=== PATIENT | female | born 1990 | race Caucasian/White ===

== ENCOUNTER → 2019-06-20 | Outpatient (REF) | payer MEDICAID ==
[2019-06-20 14:29] LABS: HEMATOCRIT 37.6 % (36.0-47.0); HEMOGLOBIN 12.8 g/dl (12.0-15.5); MEAN CORPUSCULAR HEMOGLOBIN 32.2 pg (27.0-33.0); MEAN CORPUSCULAR VOLUME 94.7 fl (80.0-96.0); PLATELET COUNT, AUTOMATED 204 10^3/uL (150-450); RED BLOOD COUNT 3.97 10^6/uL (4.00-5.40); WHITE BLOOD COUNT 6.4 10^3/uL (4.0-10.0)
[2019-06-20 15:57] LABS: HCG, SERUM QUANTITATIVE 89013 MIU/ML
[2019-06-21 11:15] LABS: RUBELLA IgG QUALITATIVE IMMUNE (IMMUNE)
[2019-06-21 11:44] LABS: HIV 1&2 SCREEN CENTAUR NEGATIVE (NEGATIVE)
== END ==
LOC: M LAB REF 13:20
PROVIDERS: ATTEND Nurse Practitioner Women's Health
DX: O36.80X0 Pregnancy with inconclusive fetal viability, not applicable or unspecified (principal); Z32.01 Encounter for pregnancy test, result positive

== ENCOUNTER → 2019-10-11 | Outpatient (CLI) | payer OTHER ==
[2019-10-11 14:55] LABS: FREE T4 0.83 NG/DL (0.76-1.46); THYROID STIMULATING HORMONE 1.07 uIU/ML (0.358-3.740)
== END ==
LOC: M PLALAB 12:11
PROVIDERS: ATTEND Advanced Practice Midwife
DX: R45.86 Emotional lability (principal)

== ENCOUNTER → 2019-10-30 | Outpatient (CLI) | payer OTHER ==
[2019-10-30 17:32] LABS: HEMATOCRIT 30.7 % (36.0-47.0); HEMOGLOBIN 9.9 g/dl (12.0-15.5); MEAN CORPUSCULAR HEMOGLOBIN 32.5 pg (27.0-33.0); MEAN CORPUSCULAR HGB CONC 32.2 g/dl (32.0-36.5); MEAN CORPUSCULAR VOLUME 100.7 fl (80.0-96.0); PLATELET COUNT, AUTOMATED 250 10^3/uL (150-450); RED BLOOD COUNT 3.05 10^6/uL (4.00-5.40)
== END ==
LOC: M PLALAB 12:21
PROVIDERS: ATTEND Obstetrics & Gynecology
DX: Z34.92 Encounter for supervision of normal pregnancy, unspecified, second trimester (principal)

== ENCOUNTER → 2019-10-31 | Outpatient (CLI) | payer OTHER ==
--- NOTE | 2019-11-01 02:31 | REP ---
Clinical: Anatomical evaluation. Comparison: None . Findings: Examination demonstrates a single live intrauterine in breech presentation. motion is identified by technologist. Placenta is noted posterior and grade I without evidence for placenta previa or abruption. Amniotic fluid volume is normal. Cervix measures 3.5 cm in length and appears closed. No evidence for nuchal cord. Gestational age by current measurements 27 weeks 4 days with ERNESTO 01/26/2020 . FHR equals 152 beats per minute. Estimated weight 1126 grams ( 46th percentile). Amniotic fluid index: 15.9 cm (9.4 - 22.7) Anatomical assessment demonstrates normal four-chamber heart/left ventricular outflow tract. Impression: 1. Single live intrauterine in breech presentation demonstrating appropriate interval growth. Amniotic fluid volume is normal. 2. Current examination demonstrates normal four-chamber heart and left ventricular outflow tract.
== END ==
LOC: M WHC 11:07
PROVIDERS: ATTEND Obstetrics & Gynecology
DX: Z34.92 Encounter for supervision of normal pregnancy, unspecified, second trimester (principal); Z3A.27 27 weeks gestation of pregnancy

== ENCOUNTER → 2019-12-26 | Outpatient (REF) | payer OTHER | LOC: M SFHCWAGY 13:01 | PROVIDERS: ATTEND Obstetrics & Gynecology | DX: O99.013 Anemia complicating pregnancy, third trimester (principal) ==

== ENCOUNTER → 2020-01-02 | Outpatient (CLI) | payer OTHER ==
--- NOTE | 2020-01-02 19:53 | REP ---
Clinical: Growth evaluation. Comparison: 10/31/2019 . Findings: Examination demonstrates a single live intrauterine in cephalic presentation. motion is identified by technologist. Placenta is noted posterior and grade I I without evidence for placenta previa or abruption. Amniotic fluid volume is normal. Cervix appears closed. No evidence for nuchal cord. Gestational age by first US 36 weeks 4 days with ERNESTO 01/26/2020 . Gestational age by current measurements 36 weeks for the with ERNESTO 01/26/2020 . FHR equals 146 beats per minute. Amniotic fluid index: 19.6 cm (7.6 - 24.6) Estimated weight 3133 grams (62nd percentile). Impression: Single live advanced gestation in cephalic presentation demonstrating appropriate interval growth. Amniotic fluid volume is normal. No gross abnormalities are identified. Electronically Signed by Britton Mansfield MD 01/02/2020 07:45 P
== END ==
LOC: M WHC 10:07
PROVIDERS: ATTEND Advanced Practice Midwife
DX: O26.843 Uterine size-date discrepancy, third trimester (principal)

== ENCOUNTER → 2020-01-16 | Outpatient (REF) | payer OTHER ==
[2020-01-16 14:51] LABS: HEMATOCRIT 34.6 % (36.0-47.0); HEMOGLOBIN 11.3 g/dl (12.0-15.5); MEAN CORPUSCULAR HEMOGLOBIN 33.3 pg (27.0-33.0); MEAN CORPUSCULAR HGB CONC 32.7 g/dl (32.0-36.5); MEAN CORPUSCULAR VOLUME 102.1 fl (80.0-96.0); PLATELET COUNT, AUTOMATED 224 10^3/uL (150-450); RED BLOOD COUNT 3.39 10^6/uL (4.00-5.40); WHITE BLOOD COUNT 8.4 10^3/uL (4.0-10.0)
[2020-01-16 14:57] LABS: ALT/SGPT 16 U/L (12-78); BILIRUBIN,TOTAL 0.4 MG/DL (0.2-1.0); CREATININE FOR GFR 0.63 MG/DL (0.55-1.30); GLOMERULAR FILTRATION RATE > 60.0 (>60); LDH LACTATE DEHYDROGENASE 179 U/L (84-246); URIC ACID 4.3 MG/DL (2.6-6.0)
[2020-01-16 15:07] LABS: TOTAL PROTEIN,RANDOM URINE 13.7 MG/DL (0.0-12.0)
== END ==
LOC: M PLALAB 09:31
PROVIDERS: ATTEND Advanced Practice Midwife
DX: O16.3 Unspecified maternal hypertension, third trimester (principal); Z3A.00 Weeks of gestation of pregnancy not specified

== ENCOUNTER 2020-01-27 11:16 | Inpatient (IN) | payer OTHER ==
[~2020-01-27] VITALS: Ht 170.2 cm; Wt 105.5 kg
[2020-01-27] VITALS (10 sets, daily range): BP systolic 111–138; BP diastolic 56–89
[2020-01-27] MEDS ORDERED: LACTATED RINGER'S 1000 ML IV STA (11:32)
[2020-01-27] MEDS ORDERED: STOO2CAP (11:40)
[2020-01-27] MEDS ORDERED: SERT50TA29 (11:40)
[2020-01-27] MEDS ORDERED: FERR32TA (11:40)
[2020-01-27] MEDS ORDERED: PRENTAB9 PO (11:40)
[2020-01-27 12:40] LABS: HEMATOCRIT 36.5 % (36.0-47.0); HEMOGLOBIN 12.5 g/dl (12.0-15.5); MEAN CORPUSCULAR HEMOGLOBIN 34.2 pg (27.0-33.0); MEAN CORPUSCULAR HGB CONC 34.2 g/dl (32.0-36.5); MEAN CORPUSCULAR VOLUME 99.7 fl (80.0-96.0); PLATELET COUNT, AUTOMATED 221 10^3/uL (150-450); RED BLOOD COUNT 3.66 10^6/uL (4.00-5.40); WHITE BLOOD COUNT 8.6 10^3/uL (4.0-10.0)
--- NOTE | 2020-01-27 12:45 | HPEPDOC ---
Obstetrical History & Physical General Date of Admission Jan 27, 2020 at 11:16 Primary Care Physician: GEORGES SMALLWOOD CNM History of Present Illness Patient is a 29-year-old female who is a at 40.2 weeks gestation with an ERNESTO of 01/25/20 based off of her first trimester ultrasound. She initiated care with [facility] and transferred care in her second trimester to [facility]. Her has been complicated by depression and anxiety, which she was started on Zoloft for. She is currently taking 50 mg Zoloft. She presents for an elective induction of labor. She denies contractions, leaking of fluid, or vaginal bleeding. She reports active movement. Chief Complaint: Induction of labor Information Provided By: Patient Age: 29 : 1 Term: 0 Pre-term: 0 Abortions: 0 Livin Care Care: Good Care Dating Final EDC: Jan 25, 2020 Final EDC by: 1st trimester (US) EGA at Admission: 40.2 Antepartum Course Height (inches): 67 Pre- weight (lbs.): 184 Admission Weight (lbs.): 234 Change in Weight (lbs.): 50 Past Medical History Past Obstetrical History : Past Obstetrical History: Primgravida APPLICATION SUPPORT History: No pertinent history Past Medical History Medical History Migraine headaches Surgical History: Denies/None Family History Significant Family History: Cancer (lung,cervical and non Hodgkins lymphoma), Other (Mother with SLE and sister with non malignant brain tumor) Social History Marital Status: Family situation: Spouse/partner home Psychosocial History: Anxiety, Depression (taking zoloft which was started at in third trimester of ) * Smoker: non-smoker Alcohol: Denies Drugs: denies Abuse Violence Screening Have you been hit/kicked/slapp: No Have you been sexually assault: No Imunizations Tdap status: current Allergies Coded Allergies: No Known Allergies (Unverified , 01/27/20) Medications Scheduled No.137/Iron/Folic Acd ( Vitamin Tablet) 1 Each Tablet, 1 TAB PO DAILY Miscellaneous Medications Docusate Sodium (Stool Softener) 100 Mg Capsule Ferrous Gluconate (Ferrous Gluconate) 324 Mg Tablet Sertraline HCl (Sertraline HCl) 50 Mg Tablet Physical Examination Physical Examination GENERAL: Alert and oriented times three. BREAST: . ABDOMEN: Gravid and non-tender to touch. FETUS: Is vertex (VTX) by sterile vaginal examination (SVE), fetus is vertex (VTX) by Jeremy. HEART RATE: Regular rate and rhythm. LUNGS: Clear to auscultation (CTA). EXTREMITIES: No edema. No clonus. Deep tendon reflexes (DTRs) + 2. Laboratory Data 24H LABS Laboratory Tests 2 01/27/20 11:30: Serology Scanned Report Hepatitis B Testing 01/27/20 12:20: Nucleated Red Blood Cells % (auto) 0.0 CBC/BMP Laboratory Tests 01/27/20 12:20 Urine Culture: No Growth Pertinent Laboratoy Data Blood Type: O+ RBC Antibody Screen: Negative HIV: Negative Hepatitis B: Negative Hepatitis C: Negative Rapid Plasma Reagin: Nonreactive Rubella: Immune Chlamydia/Gonorrhea: Negative Group B Streptococcus: Negative Glucose Tolerance Test: 106 Vaginal Examination Dilation: Fingertip Effacement: 50% Station: -3 Cervical Consistency: Soft Cervical Position: Posterior Presentation: Cephalic presentation Position: Four quadrants Assessment Heart Rate (FHR): 145 Variability: Moderate Accelerations: Positive Decelerations: None Tocometer Contractions: Yes Frequency: irregular Multi-drug resistant Organism: No history of MDRO Assessment/Plan Assessment IUP at 40.2 weeks gestation GBS negative Category I FHR tracing elective induction of labor Plan Admit to L&D. OOB ad karen. Diet: regular then switch to clears when IV Pitocin is started or patient gets an epidural. Group B Streptococcus (GBS) negative. Labs and intravenous (IV) per unit protocol. Counseled on Cytotec, cedeño bulb, and Pitocin for induction of labor (IOL). Start Cytotec per order. Anesthesia consult per patient's request. Lactated Ringers (LR): Bolus 800 mL prior to epidural, then at 125 mL/hr. Anticipate cervical ripening. C-S as appropriate. GEORGES SMALLWOOD CNM Jan 27, 2020 12:45
[2020-01-27] MEDS: miSOPROStol 50 MCG 1/2 TAB (S0191) PO SCH ×2 (12:56→17:12)
[2020-01-27] MEDS ORDERED: MORPHINE 4 MG/ML 1ML VIAL/SYRINGE (J2270) IV ONE (21:00)
--- NOTE | 2020-01-27 22:11 | IPNPDOC ---
Obstetrical Progress Note Date of Service Jan 27, 2020 Subjective Patient reports feeling cramping. Objective Vital Signs Date Time Temp Pulse Resp B/P (MAP) Pulse Ox O2 Delivery O2 Flow Rate FiO2 01/27/20 21:07 16 01/27/20 20:08 78 127/62 (83) 01/27/20 18:03 97.5 01/27/20 11:58 98 Room Air Assessment Heart Rate (FHR): 130 Variability: Moderate Accelerations: Positive Decelerations: None Heart Rate Tracing: Category I Tocometer Contractions: Yes Frequency: regular, other (1 to 4 minutes) Strength: palpated as mild Sterile Vaginal Examination Dilation: 1cm Effacement (%): other (75%) Station: -2 Cervical Consistency: Soft Cervical Position: Middle Postion/Presentation: Cephalic presentation Assessment and Plan Age: 29 : 1 Term: 0 Pre-term: 0 Abortions: 0 Livin EGA at Admission: 40.2 Status: Reassuring Group B Streptococcus: Negative Anticipate: Vaginal Delivery Additional Comments IV Morphine given to help patient tolerate exam better as she has a hard time with vaginal exams. Roldan bulb placed successfully with 60/40 cc of NS. IV Pitocin to be started per order. GEORGES SMALLWOOD CNM Jan 27, 2020 22:11
[2020-01-27] MEDS ORDERED: OXYTOCIN DRIP 30 UNITS in IV 1 EA IV SCH (22:15)
[2020-01-27] MEDS: LR 1,000 ML IV SCH (22:58)
[2020-01-28] VITALS (101 sets, daily range): BP systolic 86–137; BP diastolic 50–76
[2020-01-28] MEDS ORDERED: BUTORPHANOL 2 MG/ML INJ (J0595) IV ONE
[2020-01-28] MEDS ORDERED: PROMETHAZINE INJ 25 MG/ML VIAL (J2550) IV ONE
--- NOTE | 2020-01-28 04:18 | IPNPDOC ---
Obstetrical Progress Note Date of Service Jan 28, 2020 Subjective Patient reports her contractions are painful. She is considering an epidural for pain management. Objective Vital Signs Date Time Temp Pulse Resp B/P (MAP) Pulse Ox O2 Delivery O2 Flow Rate FiO2 01/28/20 02:58 78 16 121/67 (85) 01/28/20 01:58 98.0 01/27/20 11:58 98 Room Air Assessment Heart Rate (FHR): 125 Variability: Moderate Accelerations: Positive Decelerations: None Heart Rate Tracing: Category I Tocometer Contractions: Yes Frequency: regular Strength: palpated as mild Assessment and Plan Age: 29 : 1 Term: 0 Pre-term: 0 Abortions: 0 Livin EGA at Admission: 40.4 Weeks & Days 40.5 weeks Status: Reassuring Group B Streptococcus: Negative Anticipate: Vaginal Delivery Additional Comments Roldan bulb out. Consider AROM after patient receives her epidural. GEORGES SMALLWOOD CNM Jan 28, 2020 04:17
[2020-01-28] MEDS ORDERED: FENTANYL 2MCG/ML ROPIVACAINE 0.2% IN 0.9% NACL 100ML IVBAG As Ordered ONE ×2 (04:22→13:56)
[2020-01-28] MEDS ORDERED: REFRIGERATOR IV KEYS XX PRN (05:35)
[2020-01-28] MEDS ORDERED: FENTANYL/ROPIVACAINE/NACL BAG 100 ML EPIDURAL SCH (05:35)
[2020-01-28] MEDS ORDERED: NALOXONE INJ 0.4MG/1ML VIAL (J2310 PER 1MG) IV PRN (05:35)
[2020-01-28] MEDS ORDERED: ONDANSETRON 4MG/2ML VIAL IV PRN (05:35)
[2020-01-28] MEDS ORDERED: LACTATED RINGER'S 1000 ML IV PRN (05:35)
[2020-01-28] MEDS ORDERED: EPIDURAL COMMENT XX SCH (05:35)
[2020-01-28] MEDS ORDERED: diphenhydrAMINE 50MG/ML VIAL (J1200) IV PRN (05:35)
[2020-01-28] MEDS ORDERED: EPIDURAL/PCA KEYS XX PRN (05:35)
[2020-01-28] MEDS: ePHEDrine SULFATE 25 MG/5 ML(5MG/ML) SYRINGE IV PRN ×4 (07:31→12:00)
--- NOTE | 2020-01-28 07:48 | IPNPDOC ---
Obstetrical Progress Note Date of Service Jan 28, 2020 Subjective Patient reports she is comfortable with her epidural. Objective Vital Signs Date Time Temp Pulse Resp B/P (MAP) Pulse Ox O2 Delivery O2 Flow Rate FiO2 01/28/20 02:58 78 16 121/67 (85) 01/28/20 01:58 98.0 01/27/20 11:58 98 Room Air Assessment Heart Rate (FHR): 140 Variability: Moderate Accelerations: Positive Decelerations: Late (lates after epidural) Heart Rate Tracing: Category II Tocometer Contractions: Yes Frequency: regular Sterile Vaginal Examination Dilation: 4 cm (4-5 cm) Effacement (%): 80% Station: -2 Cervical Consistency: Soft Cervical Position: Anterior Postion/Presentation: Cephalic presentation Assessment and Plan Status: Reassuring Group B Streptococcus: Negative Anticipate: Vaginal Delivery Additional Comments IV Pitocin is running and at 10 mu/min. She spontaneously ruptured when sitting up to get her epidural. GEORGES SMALLWOOD CNM Jan 28, 2020 07:48
--- NOTE | 2020-01-28 15:40 | IPNPDOC ---
Obstetrical Progress Note Date of Service Jan 28, 2020 Subjective Patient reports she is comfortable with her epidural. Objective Vital Signs Date Time Temp Pulse Resp B/P (MAP) Pulse Ox O2 Delivery O2 Flow Rate FiO2 01/28/20 14:54 82 16 129/71 (90) 01/28/20 14:39 99.1 01/27/20 11:58 98 Room Air Assessment Heart Rate (FHR): 130 Variability: Moderate Accelerations: Positive Decelerations: Early Heart Rate Tracing: Category I Tocometer Contractions: Yes Frequency: regular Sterile Vaginal Examination Dilation: 4 cm (4-5 cm) Effacement (%): 100% Station: -2 Postion/Presentation: Cephalic presentation Assessment and Plan Age: 29 : 1 Term: 0 Pre-term: 0 Abortions: 0 Livin Weeks & Days 40.2 Status: Reassuring Group B Streptococcus: Positive Additional Comments IV Pitocin is at 20 mu/min. Reviewed minimal change in 9 hours. Will reassess in 3-4 hours. GEORGES SMALLWOOD CNM Jan 28, 2020 15:40
[2020-01-28] MEDS: LR 1,000 ML IV SCH (17:05)
--- NOTE | 2020-01-28 19:49 | IPNPDOC ---
Obstetrical Progress Note Date of Service Jan 28, 2020 Subjective Patient reports she is comfortable with her epidural. She did receive a bolus from anesthesia. Objective Vital Signs Date Time Temp Pulse Resp B/P (MAP) Pulse Ox O2 Delivery O2 Flow Rate FiO2 01/28/20 18:54 98.9 80 16 107/51 (69) 98 Room Air Assessment Heart Rate (FHR): 135 Variability: Moderate Accelerations: Positive Decelerations: None Heart Rate Tracing: Category I Tocometer Contractions: Yes Frequency: regular Sterile Vaginal Examination Dilation: 6 cm Effacement (%): 100% Station: -1 Postion/Presentation: Cephalic presentation Assessment and Plan Age: 29 : 1 Term: 0 Pre-term: 0 Abortions: 0 Livin EGA at Admission: 40.1 Weeks & Days 40.2 Status: Reassuring Group B Streptococcus: Positive Anticipate: Vaginal Delivery Additional Comments IV Pitocin is at 20 mu/min. GEORGES SMALLWOOD CNM Jan 28, 2020 19:49
[2020-01-28] MEDS ORDERED: SERTRALINE HCL 50 MG TAB PO SCH (21:00)
[2020-01-29] VITALS (24 sets, daily range): BP systolic 106–162; BP diastolic 56–83
[2020-01-29] MEDS ORDERED: fentaNYL 100 MCG/2 ML INJECTION (J3010) As Ordered ONE ×2 (00:56→07:11)
[2020-01-29] MEDS ORDERED: fentaNYL 100 MCG/2 ML INJECTION (J3010) EPIDURAL ONE (01:00)
--- NOTE | 2020-01-29 03:56 | IPNPDOC ---
Text Note Date of Service The patient was seen on 01/29/20. NOTE Progress Has been pushing for almost 2 hours. Has had maximum epidural bolus available. FH 150, moderate variability UC 2-4 minutes SVE FD, + 2. Poor maternal pushing efforts. Pt is demonstrating inability to cope further, crying, weeping, unable to focus Dr Oshea notified, presence requested. VS,Fishbone, I+O VS, Fishbone, I+O Vital Signs Date Time Temp Pulse Resp B/P (MAP) Pulse Ox O2 Delivery O2 Flow Rate FiO2 01/28/20 18:54 98.9 80 16 107/51 (69) 98 Room Air I&O- Last 24 Hours up to 6 AM 01/29/20 06:00 Intake Total 3680 ml Output Total 1250 ml Balance 2430 ml Naima Melissa CNM Jan 29, 2020 03:56
[2020-01-29] MEDS ORDERED: LACTATED RINGER'S 1000 ML IV STA (04:53)
[2020-01-29] MEDS ORDERED: ceFAZolin 2 GM/D5W 50 ML IV BAG (J0690 PER 500MG) As Ordered ONE (04:57)
[2020-01-29] MEDS ORDERED: BICITRA 30ML SOLN UDC As Ordered ONE (04:57)
[2020-01-29] MEDS ORDERED: BICITRA 30ML SOLN UDC PO ONE (05:00)
[2020-01-29] MEDS ORDERED: ceFAZolin SOD 2 GM in IV 1 EA IV ONE (05:00)
[2020-01-29] MEDS ORDERED: OXYC1TAB23 PO (05:23)
[2020-01-29] MEDS ORDERED: diphenhydrAMINE 50MG/ML VIAL (J1200) IV PRN (05:30)
[2020-01-29] MEDS ORDERED: ONDANSETRON 4MG/2ML VIAL IV PRN ×3 (05:30→06:30)
[2020-01-29] MEDS ORDERED: METOCLOPRAMIDE INJ 10MG/2ML VIAL (J2765 PER 1) IV PRN (05:30)
[2020-01-29] MEDS ORDERED: NALOXONE INJ 0.4MG/1ML VIAL (J2310 PER 1MG) IV PRN ×2 (05:30)
[2020-01-29] MEDS ORDERED: NALBUPHINE HCL 10 MG/ML AMP (J2300) IV PRN (05:30)
[2020-01-29] MEDS ORDERED: dexameTHASONE 4 MG/ML 1ML VIAL (J1100 PER 1MG) As Ordered ONE (05:48)
[2020-01-29] MEDS ORDERED: ONDANSETRON 4MG/2ML VIAL As Ordered ONE (05:48)
[2020-01-29] MEDS ORDERED: MORPHINE PRES-FREE INJ 10 MG/10 ML VIAL (J2274) As Ordered ONE (05:48)
[2020-01-29] MEDS ORDERED: MIDAZOLAM INJ 2MG/2ML VIAL (J2250 PER 1MG) As Ordered ONE (05:48)
[2020-01-29] MEDS ORDERED: LIDOCAINE 2% W/EPIN INJ 20ML **PRES FREE As Ordered ONE (05:48)
[2020-01-29] MEDS ORDERED: OXYTOCIN INJ 10 UNITS/ML VIAL (J2590) As Ordered ONE (05:48)
[2020-01-29] MEDS ORDERED: miSOPROStol 200 MCG TAB (S0191) As Ordered ONE (06:19)
[2020-01-29] MEDS ORDERED: KETOROLAC 60 MG/2 ML VIAL As Ordered ONE (06:19)
[2020-01-29] MEDS ORDERED: OXYTOCIN DRIP 30 UNITS in IV 1 EA IV SCH (06:26)
[2020-01-29] MEDS: LR 1,000 ML IV SCH ×3 (06:26→19:09)
[2020-01-29] MEDS ORDERED: oxyCODONE 5MG TAB PO PRN (06:30)
[2020-01-29] MEDS ORDERED: fentaNYL 100 MCG/2 ML INJECTION (J3010) IV PRN (06:30)
[2020-01-29] MEDS ORDERED: PERCOCET 5MG/325MG TAB PO PRN (06:30)
[2020-01-29] MEDS ORDERED: MEASLES,MUMPS,RUBELLA VACCINE INJ (MMR-II) (90707) SC SCH (06:30)
[2020-01-29] MEDS ORDERED: DOCUSATE SODIUM 100 MG CAP PO PRN (06:30)
[2020-01-29] MEDS ORDERED: miSOPROStol 200 MCG TAB (S0191) PR ONE (06:30)
[2020-01-29] MEDS ORDERED: KETOROLAC 30 MG/ML 1ML VIAL IV PRN (06:30)
[2020-01-29] MEDS ORDERED: RHOGAM 300 MCG (1500 IU) INJ (J2790) IM SCH (06:30)
[2020-01-29] MEDS ORDERED: OXYTOCIN 30 UNITS IN 0.9% NaCl 500ML IV BAG (J2590) As Ordered ONE (06:42)
--- NOTE | 2020-01-29 06:50 | RO ---
DATE OF PROCEDURE: 01/29/2020 PREPROCEDURE DIAGNOSIS: Term , arrest of descent. POSTPROCEDURE DIAGNOSIS: Term , arrest of descent. PROCEDURE: Primary low transverse section. SURGEON: Dr. Zaid Oshea TOP FRAME FITTER: ANESTHESIA:Spinal ESTIMATED BLOOD LOSS: 1000 mL. URINE OUTPUT: 100 mL. FINDINGS: 7 pound 5 ounce male , 3310 grams, Apgars 2, 5 and 7. DESCRIPTION OF PROCEDURE: The patient was taken to the operating room where spinal anesthesia was induced. The Roldan catheter was already in place. She was prepped and draped in sterile fashion in the supine position. A Pfannenstiel skin incision was made with the scalpel and carried through to the fascia. The fascia was nicked and extended and the fascia was dissected off the rectus muscles. The peritoneal cavity was entered. A Mobius retractor was placed. A bladder flap was created. A curvilinear incision was made in the lower uterine segment until meconium stained fluid was noted. This was extended manually. The infant was delivered from the vertex position. The cord was doubly clamped and cut. The infant was handed off to the awaiting nurses. The placenta was expressed. The uterus was closed with #0 Vicryl in a running locked fashion. A second imbricating layer of #0 Vicryl was placed. The peritoneum was closed with #2-0 Vicryl in a running fashion. The fascia was closed with #0 Vicryl in a running fashion. The deep layer was irrigated and closed with #2-0 chromic. The skin was closed with #4-0 Monocryl subcuticular sutures. Sponge, instrument and needle counts were correct. At the end of the procedure, the uterus was expressed vaginally and a moderate amount of blood resulted. The patient was diagnosed with some uterine atony. She received 800 mcg of Cytotec per rectum at that point. The patient went to the recovery room in stable condition. [facility]ENTER[facility]iana
[2020-01-29] MEDS ORDERED: oxyCODONE 5MG TAB As Ordered ONE (07:37)
[2020-01-29] MEDS: PRENATAL VITAMINS CHEWABLE TABLET PO SCH (09:00)
[2020-01-29] MEDS: KETOROLAC 30 MG/ML 1ML VIAL IV SCH ×2 (12:56→18:36)
[2020-01-29] MEDS: SERTRALINE HCL 50 MG TAB PO SCH (13:05)
[2020-01-30] MEDS: KETOROLAC 30 MG/ML 1ML VIAL IV SCH (01:16)
[2020-01-30 02:00] VITALS: BP 113/56
[2020-01-30] MEDS: PERCOCET 5MG/325MG TAB PO PRN ×3 (05:05→21:17)
[2020-01-30 06:00] VITALS: BP 107/58
[2020-01-30 07:09] LABS: HEMATOCRIT 25.9 % (36.0-47.0); HEMOGLOBIN 8.6 g/dl (12.0-15.5); MEAN CORPUSCULAR HEMOGLOBIN 34.3 pg (27.0-33.0); MEAN CORPUSCULAR HGB CONC 33.2 g/dl (32.0-36.5); MEAN CORPUSCULAR VOLUME 103.2 fl (80.0-96.0); PLATELET COUNT, AUTOMATED 159 10^3/uL (150-450); RED BLOOD COUNT 2.51 10^6/uL (4.00-5.40); WHITE BLOOD COUNT 13.2 10^3/uL (4.0-10.0)
[2020-01-30] MEDS: IBUPROFEN 800 MG TAB PO SCH ×2 (09:31→17:01)
[2020-01-30] MEDS: PRENATAL VITAMINS CHEWABLE TABLET PO SCH (09:32)
[2020-01-30] MEDS: SERTRALINE HCL 50 MG TAB PO SCH (09:32)
[2020-01-30 10:00] VITALS: BP 102/51
[2020-01-30 14:00] VITALS: BP 114/53
[2020-01-30 18:00] VITALS: BP 110/55
[2020-01-30 22:31] VITALS: BP 126/69
[2020-01-31] MEDS: IBUPROFEN 800 MG TAB PO SCH ×2 (00:25→08:10)
[2020-01-31] MEDS: PERCOCET 5MG/325MG TAB PO PRN ×2 (02:37→09:55)
[2020-01-31 06:00] VITALS: BP 119/61
[2020-01-31] MEDS ORDERED: IBUP80TA PO (07:42)
[2020-01-31] MEDS: PRENATAL VITAMINS CHEWABLE TABLET PO SCH (08:10)
[2020-01-31] MEDS: SERTRALINE HCL 50 MG TAB PO SCH (09:55)
--- NOTE | 2020-01-31 10:10 | DSES ---
DATE OF ADMISSION: 01/27/2020 DATE OF DISCHARGE: 01/31/2020 29-year-old, G1, P0 at 40 and 2/7 weeks gestation, presents for elective induction of labor. is complicated by depression and anxiety. HOSPITAL COURSE: The patient was admitted on 01/27/2020. She had induction of labor initiated with misoprostol. She had slow but adequate progress in labor. Following progression to the second stage, she pushed for greater than 2 hours and was diagnosed with arrest of decent. The decision was made to proceed with operative delivery. On 01/29/2020, the patient underwent primary low transverse section for a 7 pound 5 ounce male infant. The procedure was uncomplicated. Postoperative course was unremarkable. She had adequate return of bladder and bowel function. Her postoperative hemoglobin was 8.6 g/dL. She was deemed stable for discharge on postoperative day #2. ADMISSION DIAGNOSES: 1. . 2. Term. 3. Induction. DISCHARGE DIAGNOSIS: Delivered. PROCEDURE: section. DISPOSITION: The patient will followup with Dr. Oshea in 2 weeks. Instructions reviewed. edited: 02/03/2020 0727 tkf MTDD
== END 2020-01-31 14:30 | disposition home or self-care (01) | DRG 540 ==
LOC: M LDI 11:16 → M OBS 01-29 08:39
PROVIDERS: ADMIT Advanced Practice Midwife; ATTEND Advanced Practice Midwife
PROC: 3E033VJ Introduction of Other Hormone into Peripheral Vein, Percutaneous Approach (ICD-10-PCS; 2020-01-27)
PROC: 10D00Z1 Extraction of Products of Conception, Low, Open Approach (ICD-10-PCS; principal; 2020-01-29 05:47)
DX: O48.0 Post-term pregnancy (principal); F32.9 Major depressive disorder, single episode, unspecified; Z37.0 Single live birth; Z3A.40 40 weeks gestation of pregnancy; F41.9 Anxiety disorder, unspecified; O99.344 Other mental disorders complicating childbirth; O32.4XX0 Maternal care for high head at term, not applicable or unspecified

== ENCOUNTER → 2020-05-27 | Outpatient (REF) | payer OTHER ==
[~2020-05-27] MED LIST: FERR32TA; IBUP80TA PO; OXYC1TAB23 PO; PRENTAB9 PO; SERT50TA29; STOO2CAP
== END ==
LOC: M SFHCWAGY 13:34
PROVIDERS: ATTEND Advanced Practice Midwife
DX: Z34.00 Encounter for supervision of normal first pregnancy, unspecified trimester (principal); Z36.89 Encounter for other specified antenatal screening

== ENCOUNTER → 2020-05-29 | Outpatient (REF) | payer OTHER | LOC: M SFHCWAGY 10:41 | PROVIDERS: ATTEND Advanced Practice Midwife | DX: Z34.00 Encounter for supervision of normal first pregnancy, unspecified trimester (principal) ==

== ENCOUNTER → 2020-06-03 | Outpatient (REF) | payer OTHER | LOC: M PLALAB 15:03 | PROVIDERS: ATTEND Advanced Practice Midwife | DX: O02.1 Missed abortion (principal) ==

== ENCOUNTER → 2020-06-10 | Outpatient (CLI) | payer OTHER ==
--- NOTE | 2020-06-17 12:13 | REP ---
FIRST TRIMESTER OBSTETRICAL ULTRASOUND CLINICAL: Missed . TECHNIQUE: Transabdominal and transvaginal first trimester obstetrical ultrasound with color Doppler evaluation. FINDINGS: Heterogeneous anteverted uterus noted. Cervix measured 3.9 cm in length. The endometrial complex measures 15 mm in thickness and a cystic structure suggesting empty gestational sac is noted measuring 11 mm mean sac diameter. No pole or yolk sac appreciated. Bilateral maternal ovaries are normal in appearance and vascularity without torsion. IMPRESSION: Presumed empty gestational sac measuring at 5 weeks 6 days gestational age. No pole or yolk sac identified. Differential diagnosis includes spontaneous /blighted ovum, as well as early and less likely, ectopic cannot be excluded. Correlation with serial hCG level is recommended. MTDD
== END ==
LOC: M WHC 09:08
PROVIDERS: ATTEND Advanced Practice Midwife
DX: O02.1 Missed abortion (principal)

== ENCOUNTER → 2020-07-01 | Outpatient (CLI) | payer OTHER | LOC: M PLALAB 12:38 | PROVIDERS: ATTEND Advanced Practice Midwife | DX: O02.1 Missed abortion (principal) ==

== ENCOUNTER → 2020-07-17 | Outpatient (CLI) | payer OTHER | LOC: M PLALAB 08:11 | PROVIDERS: ATTEND Advanced Practice Midwife | DX: O02.1 Missed abortion (principal) ==

== ENCOUNTER → 2020-11-04 | Outpatient (CLI) | payer OTHER | LOC: M LAB 18:22 | PROVIDERS: ATTEND Advanced Practice Midwife | DX: Z34.90 Encounter for supervision of normal pregnancy, unspecified, unspecified trimester (principal) ==

== ENCOUNTER → 2020-11-07 | Outpatient (CLI) | payer OTHER | LOC: M LAB 08:27 | PROVIDERS: ATTEND Advanced Practice Midwife | DX: Z34.90 Encounter for supervision of normal pregnancy, unspecified, unspecified trimester (principal) ==

== ENCOUNTER → 2020-11-11 | Outpatient (REF) | payer OTHER | LOC: M PLALAB 11:13 | PROVIDERS: ATTEND Advanced Practice Midwife | DX: O02.1 Missed abortion (principal) ==

== ENCOUNTER → 2020-11-19 | Outpatient (REF) | payer OTHER | LOC: M PLALAB 09:38 | PROVIDERS: ATTEND Advanced Practice Midwife | DX: O02.1 Missed abortion (principal) ==

== ENCOUNTER → 2020-11-27 | Outpatient (REF) | payer OTHER | LOC: M PLALAB 09:43 | PROVIDERS: ATTEND Advanced Practice Midwife | DX: O02.1 Missed abortion (principal) ==

== ENCOUNTER → 2020-12-06 | Day surgery (SDC) | payer OTHER ==
[~2020-12-06] VITALS: Ht 170.2 cm; Wt 85.4 kg
[~2020-12-06] MED LIST changes: +ACETAMINOPHEN 1000MG 100ML IV BTL (OFIRMEV) (J0131 PER 10MG) As Ordered ONE; +ACETAMINOPHEN 500 MG TAB PO ONE; +BUPR150T4 PO; +DOXYCYCLINE HYCLATE 100MG TABLET PO ONE; +KETOROLAC 30 MG/ML 1ML VIAL IV PRN; +KETOROLAC 60MG 2ML VIAL As Ordered ONE; +LIDOCAINE 2% 100MG/5ML SDV (FOR ANES.) As Ordered ONE; +LR 1,000 ML IV SCH; +METOCLOPRAMIDE INJ 10MG/2ML VIAL (J2765 PER 1) As Ordered ONE; +MIDAZOLAM INJ 2MG/2ML VIAL (J2250 PER 1MG) As Ordered ONE; +MORPHINE 4 MG/ML 1ML VIAL/SYRINGE (J2270) IV ONE; +NS 1,000 ML IV ONE; +ONDANSETRON 4MG/2ML VIAL As Ordered ONE; +ONDANSETRON 4MG/2ML VIAL IV PRN; +dexameTHASONE 4 MG/ML 1ML VIAL (J1100 PER 1MG) As Ordered ONE; +fentaNYL 100 MCG/2 ML INJECTION (J3010) As Ordered ONE; +fentaNYL 100 MCG/2 ML INJECTION (J3010) IV PRN; +oxyCODONE 5MG TAB PO PRN; +propofoL 200 MG/20 ML VIAL As Ordered ONE
--- OUTSIDE RECORDS SUMMARY | 2020-12-06 16:43 | CCD ---
Author Author [facility] Organization [facility] Address Unknown Phone Unavailable Care Team Providers Care Sizing End Bander Name Role Phone Leigh Worley Unavailable PROBLEMS Type Condition ICD9-CM Code [id number] Code Onset Dates Condition S tatus W/U Status Risk SNOMED Code Notes Problem Migraine without aura and without status migrain osus, not intractable G43.009 Active confirmed 256627760 Problem Supervision of other normal Z34.80 Ac tive confirm 037339821 Problem Major depressive disorder, single episode, unspecified F32.9 Active confirmed 73316436 Problem Anemia affecting in third trimester O99. 013 Active confirmed 01405578 Problem Unspecified maternal hypertension, third trimester O16.3 Active confirmed 226715345 Problem Moderate episode of recurrent major depressive disorder F33.1 Active confirmed [id number] ALLERGIES No Known Allergies ENCOUNTERS from 1991 to 2020-11-21 Encounter Location Date Provider Diagnosis [facility] [address] [place] [id number] 04 Nov, 2020 Leigh Worley IMMUNIZATIONS Vaccine Route Administration Date Status TDAP 0.5mL (Boostrix) IM Intramuscular Nov 28, 2019 Administe red SOCIAL HISTORY Tobacco Use: Social History Observation Description Date Details (start date - stop date) Never Smoker Sex Assigned At : Social History Observation Description Sex Assigned At Female Sexual Hx: Question Answer Notes Had sex in the last 12 months (vaginal, oral, or anal)? Yes Have you ever had an STD? No Prevention Strategies discussed: Other with Men only Use protection? No Alcohol Screening: Question Answer Notes Did you have a drink containing alcohol in the past year? No Points 0 Interpretation Negative Tobacco Use: Question Answer Notes Are you a: never smoker REASON FOR REFERRAL No Information VITAL SIGNS No information MEDICATIONS Medication SIG (Take, Route, Frequency, Duration) Notes Start Da te End Date Status Esgic 50-325-40 MG 1 capsule as needed Orally every 4 hrs Not-Taking Effexor XR 37.5 MG 1 capsule with food Orally Once a day for 30 day(s) Mar, Not-Taking Ferrous Gluconate 324 (38 Fe) MG 1 tablet with water o r juice between meals Orally three times per day Oct, Not-T aking Topamax 25 MG 1 tablet Orally daily at [facility] for 7 days then increase dose to 1 tab by mouth twice per day for 1 week for 14 days Mar, Not-Taking Stool Softener 100 MG 1 tablet as needed for constipation Orally BID Oct, Not-Taking Diflucan 150 MG 1 tablet Orally one time Nov, Not-Taking Zoloft 50 MG 1 tablet Orally Once a day for 30 day(s) 29 A pr2019 Not-Taking Zoloft 50 MG 1 tablet Orally Once a day for 30 day(s) Not-Taking Vitamin 27-0.8 MG 1 tablet Orally Once a day Active Topamax 25 MG 1 tablet in the morning and 2 tablets in the evening Orally for 1 week then increase to 2 tabs by mouth twice per day Apr, Not-Taking Metronidazole 500 MG 1 tablet Orally Twice a day for 7 days Nov, Not-Taking Wellbutrin SR 150 MG 1 tablet in the morning Orally Once a day Active Venlafaxine HCl ER 37.5 MG 1 capsule with food Orally Once a day for 30 day(s) February, Not-Taking Zoloft 25 MG 1 tablet Orally Once a day for 30 day(s) 30 J an2019 Not-Taking PROCEDURES No Information RESULTS No Results REASON FOR VISIT hcg MEDICAL (GENERAL) HISTORY Type Description Date Medical History migraine headaches Surgical History lasik Surgical History 01/29/2020 Hospitalization History Childbirth Goals Section No Information Health Concerns No Information MEDICAL EQUIPMENT No Information MENTAL STATUS No Information FUNCTIONAL STATUS No Information ASSESSMENTS No Information PLAN OF TREATMENT Next Appt Details Provider Name:Leigh Worley, 2020-11-27 08:40:00 AM, [address] [place], [id number], Insurance Providers Payer Name Payer Address Payer Phone Insured Name Patient Relati onship to Insured Coverage Start Date Coverage End Date FORMERLY [facility] CORPORATE CLAIMS DEPT [address] [facility] [phone] NO RUIZ
--- OUTSIDE RECORDS SUMMARY | 2020-12-06 16:43 | CCD ---
Author Author [facility] Organization [facility] Address Unknown Phone Unavailable Care Team Providers Care Passenger Screener Name Role Phone LiJessicao PA Unavailable Unavailable Li, Zhenbo PA Unavailable Unavailable Li, Zhenbo PA Unavailable Unavailable Li, Zhenbo PA Unavailable Unavailable Li, Zhenbo PA Unavailable Unavailable Li, Zhenbo PA Unavailable Unavailable Li, Zhenbo PA Unavailable Unavailable Li, Zhenbo PA Unavailable Unavailable Re-disclosure Warning The records that you are about to access may contain information from federally-assisted alcohol or drug abuse programs. If such information is present, then the following federally mandated warning applies: This information has been disclosed to you from records protected by federal confidentiality rules (42 CFR part 2). The federal rules prohibit you from making any further disclosure of this information unless further disclosure is expressly permitted by the written consent of the person to whom it pertains or as otherwise permitted by 42 CFR part 2. A general authorization for the release of medical or other information is NOT sufficient for this purpose. The Federal rules restrict any use of the information to criminally investigate or prosecute any alcohol or drug abuse patient.The records that you are about to access may contain highly sensitive health information, the redisclosure of which is protected by Article 27-F of the [facility] Public Health law. If you continue you may have access to information: Regarding HIV / AIDS; Provided by facilities licensed or operated by the [facility] Office of Mental Health; or Provided by the [facility] Office for People With Developmental Disabilities. If such information is present, then the following [facility] mandated warning applies: This information has been disclosed to you from confidential records which are protected by state law. State law prohibits you from making any further disclosure of this information without the specific written consent of the person to whom it pertains, or as otherwise permitted by law. Any unauthorized further disclosure in violation of state law may result in a fine or mcfp sentence or both. A general authorization for the release of medical or other information is NOT sufficient authorization for further disc losure. Family History Family Member Name Family Member Gender Family Member Status Date o f Status Description Data Source(s) Unknown Female Problem MEDENT ([facility], [facility]) Encounters Encounter Providers Location Date Indications Data Source(s ) Outpatient [address] [facility] [address] 11/19/2020 12:00:00 AM EST eCW1 (formerly [facility]) Unknown [address] [facility] [place] [address] 11/19/2020 12:00:00 AM EST eCW1 (formerly [facility]) Unknown [address] [facility] [place] [address] 11/12/2020 12:00:00 AM EST eCW1 (formerly [facility]) Unknown [address] [facility] [place] [address] 11/09/2020 12:00:00 AM EST eCW1 (formerly [facility]) ([facility]) [facility] [address] [place] [address] 11/04/2020 12:00:00 AM EST eCW1 ([facility]) Unknown [address] [facility] [address] 08/31/2020 12:00:00 AM EST [facility] [address] [facility] [address] 08/24/2020 12:00:00 AM EST [facility]1 [facility] Unknown [address] [facility] [address] 07/17/2020 12:00:00 AM EDT [facility] Outpatient Attender: Armida BRAR 0 03:00:00 PM EDT - 06/12/2020 03:00:00 PM EDT [facility] Outpatient Attender: Armida BRAR Family Practice 06/12/2020 03:00:00 PM EDT MEDENT ([facility]) [facility] [address] [place] [address] 03/26/2020 12:00:00 AM EDT eCW1 ([facility]) Unknown [address] [facility] [address] 03/05/2020 12:00:00 AM EDT eCW1 (formerly [facility]) [facility] [address] [place] [address] 02/13/2020 12:00:00 AM EDT eCW1 ([facility]) [facility] [address] [place] [address] 02/11/2020 12:00:00 AM EDT eCW1 ([facility]) [facility] [address] [place] [address] 01/23/2020 12:00:00 AM EDT eCW1 ([facility]) [facility] [address] [place] [address] 01/17/2020 12:00:00 AM EDT eCW1 ([facility]) [facility] [address] [place] [address] 01/16/2020 12:00:00 AM EDT eCW1 ([facility]) [facility] [address] [place] [address] 01/09/2020 12:00:00 AM EDT eCW1 ([facility]) [facility] [address] [place] [address] 01/02/2020 12:00:00 AM EDT eCW1 ([facility]) [facility] [address] [place] [address] 12/26/2019 12:00:00 AM EDT eCW1 ([facility]) [facility] [address] [place] [address] 12/12/2019 12:00:00 AM EST eCW1 ([facility]) [facility] [address] [place] [address] 11/28/2019 12:00:00 AM EST eCW1 ([facility]) [facility] [address] [place] [address] 11/23/2019 12:00:00 AM EST eCW1 ([facility]) [facility] [address] [place] [address] 11/14/2019 12:00:00 AM EST eCW1 ([facility]) Outpatient 11/06/2019 10:41:00 AM EST [facility] [address] [place] [address] 10/17/2019 12:00:00 AM EST eCW1 ([facility]) Immunizations Vaccine Date Status Description Data Source(s) Tdap 11/28/2019 08:49:00 AM EST completed e CW1 ([facility]) Tdap 11/28/2019 08:49:00 AM EST completed e CW1 ([facility]) Tdap 11/28/2019 08:49:00 AM EST completed e CW1 ([facility]) Tdap 11/28/2019 08:49:00 AM EST completed e CW1 ([facility]) Tdap 11/28/2019 08:49:00 AM EST completed e CW1 ([facility]) Tdap 11/28/2019 08:49:00 AM EST completed e CW1 ([facility]) Tdap 11/28/2019 08:49:00 AM EST completed e CW1 ([facility]) Tdap 11/28/2019 08:49:00 AM EST completed e CW1 ([facility]) Tdap 11/28/2019 08:49:00 AM EST completed e CW1 ([facility]) Tdap 11/28/2019 08:49:00 AM EST completed e CW1 ([facility]) Medications Medication Brand Name Start Date Product Form Dose Route Admi nistrative Instructions Pharmacy Instructions Status Indications Reaction Description Data Source(s) topiramate 25 MG Oral Tablet [Topamax] Topamax 25 MG Topamax 25 MG 04/22/2020 12:00:00 AM EDT suspended Topam ax 25 MG eCW1 ([facility]) topiramate 25 MG Oral Tablet [Topamax] Topamax 25 MG Topamax 25 MG 04/22/2020 12:00:00 AM EDT suspended Topam ax 25 MG eCW1 ([facility]) topiramate 25 MG Oral Tablet [Topamax] Topamax 25 MG Topamax 25 MG 04/22/2020 12:00:00 AM EDT suspended Topam ax 25 MG eCW1 ([facility]) topiramate 25 MG Oral Tablet [Topamax] Topamax 25 MG Topamax 25 MG 04/22/2020 12:00:00 AM EDT active Topamax 25 MG eCW1 ([facility]) topiramate 25 MG Oral Tablet [Topamax] Topamax 25 MG Topamax 25 MG 04/22/2020 12:00:00 AM EDT suspended Topam ax 25 MG eCW1 ([facility]) topiramate 25 MG Oral Tablet [Topamax] Topamax 25 MG Topamax 25 MG 04/22/2020 12:00:00 AM EDT active Topamax 25 MG eCW1 ([facility]) topiramate 25 MG Oral Tablet [Topamax] Topamax 25 MG Topamax 25 MG 04/22/2020 12:00:00 AM EDT suspended Topam ax 25 MG eCW1 ([facility]) topiramate 25 MG Oral Tablet [Topamax] Topamax 25 MG Topamax 25 MG 04/22/2020 12:00:00 AM EDT active Topamax 25 MG eCW1 ([facility]) 24 HR venlafaxine 37.5 MG Extended Relea se Oral Capsule [Effexor] Effexor XR 37.5 MG Effexor XR 37.5 MG 04/08/2020 12:00:00 AM EDT 1.0 {cap sule_with_food} suspended Effexor XR 37.5 MG e CW1 ([facility]) 24 HR venlafaxine 37.5 MG Extended Relea se Oral Capsule [Effexor] Effexor XR 37.5 MG Effexor XR 37.5 MG 04/08/2020 12:00:00 AM EDT 1.0 {cap sule_with_food} suspended Effexor XR 37.5 MG e CW1 ([facility]) topiramate 25 MG Oral Tablet [Topamax] Topamax 25 MG Topamax 25 MG 04/08/2020 12:00:00 AM EDT 1.0 {tablet} suspended Topamax 25 MG eCW1 ([facility]) topiramate 25 MG Oral Tablet [Topamax] Topamax 25 MG Topamax 25 MG 04/08/2020 12:00:00 AM EDT 1.0 {tablet} active To pamax 25 MG eCW1 ([facility]) 24 HR venlafaxine 37.5 MG Extended Relea se Oral Capsule [Effexor] Effexor XR 37.5 MG Effexor XR 37.5 MG 04/08/2020 12:00:00 AM EDT 1.0 {cap sule_with_food} suspended Effexor XR 37.5 MG e CW1 ([facility]) topiramate 25 MG Oral Tablet [Topamax] Topamax 25 MG Topamax 25 MG 04/08/2020 12:00:00 AM EDT 1.0 {tablet} suspended Topamax 25 MG eCW1 ([facility]) topiramate 25 MG Oral Tablet [Topamax] Topamax 25 MG Topamax 25 MG 04/08/2020 12:00:00 AM EDT 1.0 {tablet} active To pamax 25 MG eCW1 ([facility]) topiramate 25 MG Oral Tablet [Topamax] Topamax 25 MG Topamax 25 MG 04/08/2020 12:00:00 AM EDT 1.0 {tablet} suspended Topamax 25 MG eCW1 ([facility]) 24 HR venlafaxine 37.5 MG Extended Relea se Oral Capsule [Effexor] Effexor XR 37.5 MG Effexor XR 37.5 MG 04/08/2020 12:00:00 AM EDT 1.0 {cap sule_with_food} suspended Effexor XR 37.5 MG e CW1 ([facility]) topiramate 25 MG Oral Tablet [Topamax] Topamax 25 MG Topamax 25 MG 04/08/2020 12:00:00 AM EDT 1.0 {tablet} suspended Topamax 25 MG eCW1 ([facility]) 24 HR venlafaxine 37.5 MG Extended Relea se Oral Capsule [Effexor] Effexor XR 37.5 MG Effexor XR 37.5 MG 04/08/2020 12:00:00 AM EDT 1.0 {cap sule_with_food} active Effexor XR 37.5 MG e CW1 ([facility]) topiramate 25 MG Oral Tablet [Topamax] Topamax 25 MG Topamax 25 MG 04/08/2020 12:00:00 AM EDT 1.0 {tablet} suspended Topamax 25 MG eCW1 ([facility]) 24 HR venlafaxine 37.5 MG Extended Relea se Oral Capsule [Effexor] Effexor XR 37.5 MG Effexor XR 37.5 MG 04/08/2020 12:00:00 AM EDT 1.0 {cap sule_with_food} active Effexor XR 37.5 MG e CW1 ([facility]) 24 HR venlafaxine 37.5 MG Extended Relea se Oral Capsule [Effexor] Effexor XR 37.5 MG Effexor XR 37.5 MG 04/08/2020 12:00:00 AM EDT 1.0 {cap sule_with_food} suspended Effexor XR 37.5 MG e CW1 ([facility]) topiramate 25 MG Oral Tablet [Topamax] Topamax 25 MG Topamax 25 MG 04/08/2020 12:00:00 AM EDT 1.0 {tablet} active To pamax 25 MG eCW1 ([facility]) 24 HR venlafaxine 37.5 MG Extended Relea se Oral Capsule [Effexor] Effexor XR 37.5 MG Effexor XR 37.5 MG 04/08/2020 12:00:00 AM EDT 1.0 {cap sule_with_food} active Effexor XR 37.5 MG e CW1 ([facility]) 24 HR venlafaxine 37.5 MG Extended Relea se Oral Capsule Venlafaxine HCl ER 37.5 MG Venlafaxine HCl ER 37.5 MG 03/05/2020 12:00:00 AM EDT 1.0 {capsule_with_food} suspended Venlafaxin e HCl ER 37.5 MG eCW1 ([facility]) 24 HR venlafaxine 37.5 MG Extended Relea se Oral Capsule Venlafaxine HCl ER 37.5 MG Venlafaxine HCl ER 37.5 MG 03/05/2020 12:00:00 AM EDT 1.0 {capsule_with_food} suspended Venlafaxin e HCl ER 37.5 MG eCW1 ([facility]) 24 HR venlafaxine 37.5 MG Extended Relea se Oral Capsule Venlafaxine HCl ER 37.5 MG Venlafaxine HCl ER 37.5 MG 03/05/2020 12:00:00 AM EDT 1.0 {capsule_with_food} suspended Venlafaxin e HCl ER 37.5 MG eCW1 ([facility]) 24 HR venlafaxine 37.5 MG Extended Relea se Oral Capsule Venlafaxine HCl ER 37.5 MG Venlafaxine HCl ER 37.5 MG 03/05/2020 12:00:00 AM EDT 1.0 {capsule_with_food} suspended Venlafaxin e HCl ER 37.5 MG eCW1 ([facility]) 24 HR venlafaxine 37.5 MG Extended Relea se Oral Capsule Venlafaxine HCl ER 37.5 MG Venlafaxine HCl ER 37.5 MG 03/05/2020 12:00:00 AM EDT 1.0 {capsule_with_food} suspended Venlafaxin e HCl ER 37.5 MG eCW1 ([facility]) 24 HR venlafaxine 37.5 MG Extended Relea se Oral Capsule Venlafaxine HCl ER 37.5 MG Venlafaxine HCl ER 37.5 MG 03/05/2020 12:00:00 AM EDT 1.0 {capsule_with_food} active Venlafaxine HCl ER 37.5 MG eCW1 ([facility]) 24 HR venlafaxine 37.5 MG Extended Relea se Oral Capsule Venlafaxine HCl ER 37.5 MG Venlafaxine HCl ER 37.5 MG 03/05/2020 12:00:00 AM EDT 1.0 {capsule_with_food} suspended Venlafaxin e HCl ER 37.5 MG eCW1 ([facility]) 24 HR venlafaxine 37.5 MG Extended Relea se Oral Capsule Venlafaxine HCl ER 37.5 MG Venlafaxine HCl ER 37.5 MG 03/05/2020 12:00:00 AM EDT 1.0 {capsule_with_food} active Venlafaxine HCl ER 37.5 MG eCW1 ([facility]) 24 HR venlafaxine 37.5 MG Extended Relea se Oral Capsule Venlafaxine HCl ER 37.5 MG Venlafaxine HCl ER 37.5 MG 03/05/2020 12:00:00 AM EDT 1.0 {capsule_with_food} suspended Venlafaxin e HCl ER 37.5 MG eCW1 ([facility]) Sertraline 100 MG Oral Tablet [Zoloft] Zoloft 100 MG Zoloft 100 MG 02/13/2020 12:00:00 AM EDT active 1 tablet eCW1 ([facility]) Sertraline 100 MG Oral Tablet [Zoloft] Zoloft 100 MG Zoloft 100 MG 02/13/2020 12:00:00 AM EDT 1.0 {tablet} active Zo loft 100 MG eCW1 ([facility]) Sertraline 50 MG Oral Tablet [Zoloft] Zoloft 50 MG Zoloft 50 MG 02/12/2020 12:00:00 AM EDT 1.0 {tablet} active Zo loft 50 MG eCW1 ([facility]) Sertraline 50 MG Oral Tablet [Zoloft] Zoloft 50 MG Zoloft 50 MG 02/12/2020 12:00:00 AM EDT active 1 tablet eCW1 ([facility]) Sertraline 50 MG Oral Tablet [Zoloft] Zoloft 50 MG Zoloft 50 MG 02/12/2020 12:00:00 AM EDT 1.0 {tablet} suspended Zoloft 50 MG eCW1 ([facility]) Sertraline 50 MG Oral Tablet [Zoloft] Zoloft 50 MG Zoloft 50 MG 02/12/2020 12:00:00 AM EDT active 1 tablet eCW1 ([facility]) Sertraline 50 MG Oral Tablet [Zoloft] Zoloft 50 MG Zoloft 50 MG 02/12/2020 12:00:00 AM EDT 1.0 {tablet} suspended Zoloft 50 MG eCW1 ([facility]) Sertraline 50 MG Oral Tablet [Zoloft] Zoloft 50 MG Zoloft 50 MG 02/12/2020 12:00:00 AM EDT 1.0 {tablet} suspended Zoloft 50 MG eCW1 ([facility]) Sertraline 50 MG Oral Tablet [Zoloft] Zoloft 50 MG Zoloft 50 MG 02/12/2020 12:00:00 AM EDT 1.0 {tablet} suspended Zoloft 50 MG eCW1 ([facility]) Sertraline 50 MG Oral Tablet [Zoloft] Zoloft 50 MG Zoloft 50 MG 02/12/2020 12:00:00 AM EDT 1.0 {tablet} suspended Zoloft 50 MG eCW1 ([facility]) Sertraline 50 MG Oral Tablet [Zoloft] Zoloft 50 MG Zoloft 50 MG 02/12/2020 12:00:00 AM EDT 1.0 {tablet} active Zo loft 50 MG eCW1 ([facility]) Sertraline 50 MG Oral Tablet [Zoloft] Zoloft 50 MG Zoloft 50 MG 02/12/2020 12:00:00 AM EDT 1.0 {tablet} suspended Zoloft 50 MG eCW1 ([facility]) Sertraline 50 MG Oral Tablet [Zoloft] Zoloft 50 MG Zoloft 50 MG 02/12/2020 12:00:00 AM EDT 1.0 {tablet} suspended Zoloft 50 MG eCW1 ([facility]) Fluconazole 150 MG Oral Tablet [Diflucan] Diflucan 150 MG Di flucan 150 MG 11/23/2019 12:00:00 AM EST 1.0 {tablet} suspended Diflucan 150 MG eCW1 ([facility]) Fluconazole 150 MG Oral Tablet [Diflucan] Diflucan 150 MG Di flucan 150 MG 11/23/2019 12:00:00 AM EST 1.0 {tablet} suspended Diflucan 150 MG eCW1 ([facility]) Metronidazole 500 MG Oral Tablet Metronidazole 500 MG 2019 12:00:00 AM EST active 1 tablet eCW1 ([facility]) Fluconazole 150 MG Oral Tablet [Diflucan] Diflucan 150 MG Di flucan 150 MG 11/23/2019 12:00:00 AM EST 1.0 {tablet} suspended Diflucan 150 MG eCW1 ([facility]) Metronidazole 500 MG Oral Tablet Metronidazole 500 MG 2019 12:00:00 AM EST 1.0 {tablet} active Metronidazo le 500 MG eCW1 ([facility]) Fluconazole 150 MG Oral Tablet [Diflucan] Diflucan 150 MG Di flucan 150 MG 11/23/2019 12:00:00 AM EST suspended 1 tablet eCW1 ([facility]) Metronidazole 500 MG Oral Tablet Metronidazole 500 MG 2019 12:00:00 AM EST active 1 tablet eCW1 ([facility]) Fluconazole 150 MG Oral Tablet [Diflucan] Diflucan 150 MG Di flucan 150 MG 11/23/2019 12:00:00 AM EST active 1 tablet eCW1 ([facility]) Metronidazole 500 MG Oral Tablet Metronidazole 500 MG 2019 12:00:00 AM EST active 1 tablet eCW1 ([facility]) Metronidazole 500 MG Oral Tablet Metronidazole 500 MG 2019 12:00:00 AM EST 1.0 {tablet} suspended Metronid azole 500 MG eCW1 ([facility]) Fluconazole 150 MG Oral Tablet [Diflucan] Diflucan 150 MG Di flucan 150 MG 11/23/2019 12:00:00 AM EST 1.0 {tablet} suspended Diflucan 150 MG eCW1 ([facility]) Metronidazole 500 MG Oral Tablet Metronidazole 500 MG 2019 12:00:00 AM EST 1.0 {tablet} suspended Metronid azole 500 MG eCW1 ([facility]) Fluconazole 150 MG Oral Tablet [Diflucan] Diflucan 150 MG Di flucan 150 MG 11/23/2019 12:00:00 AM EST suspended 1 tablet eCW1 ([facility]) Metronidazole 500 MG Oral Tablet Metronidazole 500 MG 2019 12:00:00 AM EST active 1 tablet eCW1 ([facility]) Metronidazole 500 MG Oral Tablet Metronidazole 500 MG 2019 12:00:00 AM EST 1.0 {tablet} suspended Metronid azole 500 MG eCW1 ([facility]) Metronidazole 500 MG Oral Tablet Metronidazole 500 MG 2019 12:00:00 AM EST 1.0 {tablet} suspended Metronid azole 500 MG eCW1 ([facility]) Fluconazole 150 MG Oral Tablet [Diflucan] Diflucan 150 MG Di flucan 150 MG 11/23/2019 12:00:00 AM EST suspended 1 tablet eCW1 ([facility]) Fluconazole 150 MG Oral Tablet [Diflucan] Diflucan 150 MG Di flucan 150 MG 11/23/2019 12:00:00 AM EST 1.0 {tablet} suspended Diflucan 150 MG eCW1 ([facility]) Metronidazole 500 MG Oral Tablet Metronidazole 500 MG 2019 12:00:00 AM EST active 1 tablet eCW1 ([facility]) Metronidazole 500 MG Oral Tablet Metronidazole 500 MG 2019 12:00:00 AM EST active 1 tablet eCW1 ([facility]) Fluconazole 150 MG Oral Tablet [Diflucan] Diflucan 150 MG Di flucan 150 MG 11/23/2019 12:00:00 AM EST suspended 1 tablet eCW1 ([facility]) Metronidazole 500 MG Oral Tablet Metronidazole 500 MG 2019 12:00:00 AM EST 1.0 {tablet} suspended Metronid azole 500 MG eCW1 ([facility]) Fluconazole 150 MG Oral Tablet [Diflucan] Diflucan 150 MG Di flucan 150 MG 11/23/2019 12:00:00 AM EST suspended 1 tablet eCW1 ([facility]) Metronidazole 500 MG Oral Tablet Metronidazole 500 MG 2019 12:00:00 AM EST active 1 tablet eCW1 ([facility]) Fluconazole 150 MG Oral Tablet [Diflucan] Diflucan 150 MG Di flucan 150 MG 11/23/2019 12:00:00 AM EST suspended 1 tablet eCW1 ([facility]) Metronidazole 500 MG Oral Tablet Metronidazole 500 MG 2019 12:00:00 AM EST 1.0 {tablet} suspended Metronid azole 500 MG eCW1 ([facility]) Fluconazole 150 MG Oral Tablet [Diflucan] Diflucan 150 MG Di flucan 150 MG 11/23/2019 12:00:00 AM EST 1.0 {tablet} suspended Diflucan 150 MG eCW1 ([facility]) Metronidazole 500 MG Oral Tablet Metronidazole 500 MG 2019 12:00:00 AM EST active 1 tablet eCW1 ([facility]) Metronidazole 500 MG Oral Tablet Metronidazole 500 MG 2019 12:00:00 AM EST 1.0 {tablet} suspended Metronid azole 500 MG eCW1 ([facility]) Fluconazole 150 MG Oral Tablet [Diflucan] Diflucan 150 MG Di flucan 150 MG 11/23/2019 12:00:00 AM EST suspended 1 tablet eCW1 ([facility]) Fluconazole 150 MG Oral Tablet [Diflucan] Diflucan 150 MG Di flucan 150 MG 11/23/2019 12:00:00 AM EST 1.0 {tablet} suspended Diflucan 150 MG eCW1 ([facility]) Metronidazole 500 MG Oral Tablet Metronidazole 500 MG 2019 12:00:00 AM EST 1.0 {tablet} suspended Metronid azole 500 MG eCW1 ([facility]) Metronidazole 500 MG Oral Tablet Metronidazole 500 MG 2019 12:00:00 AM EST suspended 1 tablet eCW1 ([facility]) Fluconazole 150 MG Oral Tablet [Diflucan] Diflucan 150 MG Di flucan 150 MG 11/23/2019 12:00:00 AM EST 1.0 {tablet} suspended Diflucan 150 MG eCW1 ([facility]) Fluconazole 150 MG Oral Tablet [Diflucan] Diflucan 150 MG Di flucan 150 MG 11/23/2019 12:00:00 AM EST 1.0 {tablet} active Diflucan 150 MG eCW1 ([facility]) Metronidazole 500 MG Oral Tablet Metronidazole 500 MG 2019 12:00:00 AM EST active 1 tablet eCW1 ([facility]) Fluconazole 150 MG Oral Tablet [Diflucan] Diflucan 150 MG Di flucan 150 MG 11/23/2019 12:00:00 AM EST suspended 1 tablet eCW1 ([facility]) Fluconazole 150 MG Oral Tablet [Diflucan] Diflucan 150 MG Di flucan 150 MG 11/23/2019 12:00:00 AM EST suspended 1 tablet eCW1 ([facility]) Docusate Sodium 100 MG Oral Tablet Stool Softener 100 MG Sto ol Softener 100 MG 11/14/2019 12:00:00 AM EST active Stool Softener 100 MG eCW1 ([facility]) Sertraline 25 MG Oral Tablet [Zoloft] Zoloft 25 MG Zoloft 25 MG 11/14/2019 12:00:00 AM EST 1.0 {tablet} active Zo loft 25 MG eCW1 ([facility]) ferrous gluconate 324 MG Oral Tablet Ferrous Gluconate 324 (38 Fe) MG Ferrous Gluconate 324 (38 Fe) MG 11/14/2019 12:00:00 AM EST active 1 tablet with water or juice between meals eCW1 ([facility]) ferrous gluconate 324 MG Oral Tablet Ferrous Gluconate 324 (38 Fe) MG Ferrous Gluconate 324 (38 Fe) MG 11/14/2019 12:00:00 AM EST suspended Ferrous Gluconate 324 (38 Fe) MG eCW1 ([facility]) Docusate Sodium 100 MG Oral Tablet Stool Softener 100 MG Sto ol Softener 100 MG 11/14/2019 12:00:00 AM EST active 1 tablet as needed for constipation eCW1 ([facility]) ferrous gluconate 324 MG Oral Tablet Ferrous Gluconate 324 (38 Fe) MG Ferrous Gluconate 324 (38 Fe) MG 11/14/2019 12:00:00 AM EST active 1 tablet with water or juice between meals eCW1 ([facility]) Docusate Sodium 100 MG Oral Tablet Stool Softener 100 MG Sto ol Softener 100 MG 11/14/2019 12:00:00 AM EST active 1 tablet as needed for constipation eCW1 ([facility]) Sertraline 25 MG Oral Tablet [Zoloft] Zoloft 25 MG Zoloft 25 MG 11/14/2019 12:00:00 AM EST 1.0 {tablet} suspended Zoloft 25 MG eCW1 ([facility]) Sertraline 25 MG Oral Tablet [Zoloft] Zoloft 25 MG Zoloft 25 MG 11/14/2019 12:00:00 AM EST active 1 tablet eCW1 ([facility]) ferrous gluconate 324 MG Oral Tablet Ferrous Gluconate 324 (38 Fe) MG Ferrous Gluconate 324 (38 Fe) MG 11/14/2019 12:00:00 AM EST active 1 tablet with water or juice between meals eCW1 ([facility]) Docusate Sodium 100 MG Oral Tablet Stool Softener 100 MG Sto ol Softener 100 MG 11/14/2019 12:00:00 AM EST suspended Stool Softener 100 MG eCW1 ([facility]) Sertraline 25 MG Oral Tablet [Zoloft] Zoloft 25 MG Zoloft 25 MG 11/14/2019 12:00:00 AM EST active 1 tablet eCW1 ([facility]) Docusate Sodium 100 MG Oral Tablet Stool Softener 100 MG Sto ol Softener 100 MG 11/14/2019 12:00:00 AM EST active 1 tablet as needed for constipation eCW1 ([facility]) Sertraline 25 MG Oral Tablet [Zoloft] Zoloft 25 MG Zoloft 25 MG 11/14/2019 12:00:00 AM EST active 1 tablet eCW1 ([facility]) Sertraline 25 MG Oral Tablet [Zoloft] Zoloft 25 MG Zoloft 25 MG 11/14/2019 12:00:00 AM EST 1.0 {tablet} suspended Zoloft 25 MG eCW1 ([facility]) ferrous gluconate 324 MG Oral Tablet Ferrous Gluconate 324 (38 Fe) MG Ferrous Gluconate 324 (38 Fe) MG 11/14/2019 12:00:00 AM EST suspended Ferrous Gluconate 324 (38 Fe) MG eCW1 ([facility]) Sertraline 25 MG Oral Tablet [Zoloft] Zoloft 25 MG Zoloft 25 MG 11/14/2019 12:00:00 AM EST 1.0 {tablet} suspended Zoloft 25 MG eCW1 ([facility]) Sertraline 25 MG Oral Tablet [Zoloft] Zoloft 25 MG Zoloft 25 MG 11/14/2019 12:00:00 AM EST active 1 tablet eCW1 ([facility]) ferrous gluconate 324 MG Oral Tablet Ferrous Gluconate 324 (38 Fe) MG Ferrous Gluconate 324 (38 Fe) MG 11/14/2019 12:00:00 AM EST active 1 tablet with water or juice between meals eCW1 ([facility]) Docusate Sodium 100 MG Oral Tablet Stool Softener 100 MG Sto ol Softener 100 MG 11/14/2019 12:00:00 AM EST suspended Stool Softener 100 MG eCW1 ([facility]) ferrous gluconate 324 MG Oral Tablet Ferrous Gluconate 324 (38 Fe) MG Ferrous Gluconate 324 (38 Fe) MG 11/14/2019 12:00:00 AM EST active 1 tablet with water or juice between meals eCW1 ([facility]) ferrous gluconate 324 MG Oral Tablet Ferrous Gluconate 324 (38 Fe) MG Ferrous Gluconate 324 (38 Fe) MG 11/14/2019 12:00:00 AM EST active 1 tablet with water or juice between meals eCW1 ([facility]) Docusate Sodium 100 MG Oral Tablet Stool Softener 100 MG Sto ol Softener 100 MG 11/14/2019 12:00:00 AM EST suspended Stool Softener 100 MG eCW1 ([facility]) Sertraline 25 MG Oral Tablet [Zoloft] Zoloft 25 MG Zoloft 25 MG 11/14/2019 12:00:00 AM EST 1.0 {tablet} suspended Zoloft 25 MG eCW1 ([facility]) Sertraline 25 MG Oral Tablet [Zoloft] Zoloft 25 MG Zoloft 25 MG 11/14/2019 12:00:00 AM EST 1.0 {tablet} suspended Zoloft 25 MG eCW1 ([facility]) ferrous gluconate 324 MG Oral Tablet Ferrous Gluconate 324 (38 Fe) MG Ferrous Gluconate 324 (38 Fe) MG 11/14/2019 12:00:00 AM EST suspended Ferrous Gluconate 324 (38 Fe) MG eCW1 ([facility]) Docusate Sodium 100 MG Oral Tablet Stool Softener 100 MG Sto ol Softener 100 MG 11/14/2019 12:00:00 AM EST suspended Stool Softener 100 MG eCW1 ([facility]) Docusate Sodium 100 MG Oral Tablet Stool Softener 100 MG Sto ol Softener 100 MG 11/14/2019 12:00:00 AM EST suspended Stool Softener 100 MG eCW1 ([facility]) Sertraline 25 MG Oral Tablet [Zoloft] Zoloft 25 MG Zoloft 25 MG 11/14/2019 12:00:00 AM EST active 1 tablet eCW1 ([facility]) ferrous gluconate 324 MG Oral Tablet Ferrous Gluconate 324 (38 Fe) MG Ferrous Gluconate 324 (38 Fe) MG 11/14/2019 12:00:00 AM EST active Ferrous Gluconate 324 (38 Fe) MG eCW1 ([facility]) Docusate Sodium 100 MG Oral Tablet Stool Softener 100 MG Sto ol Softener 100 MG 11/14/2019 12:00:00 AM EST active 1 tablet as needed for constipation eCW1 ([facility]) Docusate Sodium 100 MG Oral Tablet Stool Softener 100 MG Sto ol Softener 100 MG 11/14/2019 12:00:00 AM EST active 1 tablet as needed for constipation eCW1 ([facility]) Docusate Sodium 100 MG Oral Tablet Stool Softener 100 MG Sto ol Softener 100 MG 11/14/2019 12:00:00 AM EST active 1 tablet as needed for constipation eCW1 ([facility]) ferrous gluconate 324 MG Oral Tablet Ferrous Gluconate 324 (38 Fe) MG Ferrous Gluconate 324 (38 Fe) MG 11/14/2019 12:00:00 AM EST active Ferrous Gluconate 324 (38 Fe) MG eCW1 ([facility]) Sertraline 25 MG Oral Tablet [Zoloft] Zoloft 25 MG Zoloft 25 MG 11/14/2019 12:00:00 AM EST 1.0 {tablet} active Zo loft 25 MG eCW1 ([facility]) Docusate Sodium 100 MG Oral Tablet Stool Softener 100 MG Sto ol Softener 100 MG 11/14/2019 12:00:00 AM EST suspended Stool Softener 100 MG eCW1 ([facility]) ferrous gluconate 324 MG Oral Tablet Ferrous Gluconate 324 (38 Fe) MG Ferrous Gluconate 324 (38 Fe) MG 11/14/2019 12:00:00 AM EST suspended Ferrous Gluconate 324 (38 Fe) MG eCW1 ([facility]) ferrous gluconate 324 MG Oral Tablet Ferrous Gluconate 324 (38 Fe) MG Ferrous Gluconate 324 (38 Fe) MG 11/14/2019 12:00:00 AM EST suspended Ferrous Gluconate 324 (38 Fe) MG eCW1 ([facility]) Docusate Sodium 100 MG Oral Tablet Stool Softener 100 MG Sto ol Softener 100 MG 11/14/2019 12:00:00 AM EST suspended Stool Softener 100 MG eCW1 ([facility]) ferrous gluconate 324 MG Oral Tablet Ferrous Gluconate 324 (38 Fe) MG Ferrous Gluconate 324 (38 Fe) MG 11/14/2019 12:00:00 AM EST active 1 tablet with water or juice between meals eCW1 ([facility]) Sertraline 25 MG Oral Tablet [Zoloft] Zoloft 25 MG Zoloft 25 MG 11/14/2019 12:00:00 AM EST 1.0 {tablet} suspended Zoloft 25 MG eCW1 ([facility]) Docusate Sodium 100 MG Oral Tablet Stool Softener 100 MG Sto ol Softener 100 MG 11/14/2019 12:00:00 AM EST active 1 tablet as needed for constipation eCW1 ([facility]) Docusate Sodium 100 MG Oral Tablet Stool Softener 100 MG Sto ol Softener 100 MG 11/14/2019 12:00:00 AM EST active 1 tablet as needed for constipation eCW1 ([facility]) Sertraline 25 MG Oral Tablet [Zoloft] Zoloft 25 MG Zoloft 25 MG 11/14/2019 12:00:00 AM EST active 1 tablet eCW1 ([facility]) ferrous gluconate 324 MG Oral Tablet Ferrous Gluconate 324 (38 Fe) MG Ferrous Gluconate 324 (38 Fe) MG 11/14/2019 12:00:00 AM EST active 1 tablet with water or juice between meals eCW1 ([facility]) Sertraline 25 MG Oral Tablet [Zoloft] Zoloft 25 MG Zoloft 25 MG 11/14/2019 12:00:00 AM EST active 1 tablet eCW1 ([facility]) Sertraline 25 MG Oral Tablet [Zoloft] Zoloft 25 MG Zoloft 25 MG 11/14/2019 12:00:00 AM EST active 1 tablet eCW1 ([facility]) ferrous gluconate 324 MG Oral Tablet Ferrous Gluconate 324 (38 Fe) MG Ferrous Gluconate 324 (38 Fe) MG 11/14/2019 12:00:00 AM EST active 1 tablet with water or juice between meals eCW1 ([facility]) ferrous gluconate 324 MG Oral Tablet Ferrous Gluconate 324 (38 Fe) MG Ferrous Gluconate 324 (38 Fe) MG 11/14/2019 12:00:00 AM EST suspended Ferrous Gluconate 324 (38 Fe) MG eCW1 ([facility]) Sertraline 25 MG Oral Tablet [Zoloft] Zoloft 25 MG Zoloft 25 MG 11/14/2019 12:00:00 AM EST active 1 tablet eCW1 ([facility]) ferrous gluconate 324 MG Oral Tablet Ferrous Gluconate 324 (38 Fe) MG Ferrous Gluconate 324 (38 Fe) MG 11/14/2019 12:00:00 AM EST active 1 tablet with water or juice between meals eCW1 ([facility]) Docusate Sodium 100 MG Oral Tablet Stool Softener 100 MG Sto ol Softener 100 MG 11/14/2019 12:00:00 AM EST active 1 tablet as needed for constipation eCW1 ([facility]) Docusate Sodium 100 MG Oral Tablet Stool Softener 100 MG Sto ol Softener 100 MG 11/14/2019 12:00:00 AM EST active Stool Softener 100 MG eCW1 ([facility]) Docusate Sodium 100 MG Oral Tablet Stool Softener 100 MG Sto ol Softener 100 MG 11/14/2019 12:00:00 AM EST active 1 tablet as needed for constipation eCW1 ([facility]) Sertraline 25 MG Oral Tablet [Zoloft] Zoloft 25 MG Zoloft 25 MG 11/14/2019 12:00:00 AM EST active 1 tablet eCW1 ([facility]) ferrous gluconate 324 MG Oral Tablet Ferrous Gluconate 324 (38 Fe) MG Ferrous Gluconate 324 (38 Fe) MG 11/14/2019 12:00:00 AM EST suspended Ferrous Gluconate 324 (38 Fe) MG eCW1 ([facility]) Sertraline 25 MG Oral Tablet [Zoloft] Zoloft 25 MG Zoloft 25 MG 11/14/2019 12:00:00 AM EST 1.0 {tablet} suspended Zoloft 25 MG eCW1 ([facility]) Insurance Providers Payer name Policy type / Coverage type Policy ID Covered republican ID Covered republican's relationship to shaver Policy Shaver Plan Information ISABELLE [id number] SP [id number] [place] [id number] 18 [id number] [place] [id number] S [id number] MEDICAID [id number] SP [id number] BLUE CROSS [place] [id number] SELF [id number] [facility] VOUCHER VOUCHER BLUE CROSS [id number] SELF [id number] [place] [facility] (HMO) Se [facility] EMPIRE PLAN(REFERRED SPEC) [id number] SELF [id number] SELF PAY UNAVAILABLE SELF UNAVAILA BLE BLUE CROSS [id number] MOTHER [id number] Problems, Conditions, and Diagnoses Code Display Name Description Problem Type Effective Dates Data Source(s) Z34.80 care Supervision of other normal P sherfreddiem 10/31/2020 12:00:00 AM EST eCW1 ([facility]) G43.009 [id number] Migraine without aur a and without status migrainosus, not intractable Problem 04/08/2020 12:00:00 AM EDT eCW1 ([facility]) F33.1 [id number] Moderate episode of recurrent major depre ssive disorder Problem 04/08/2020 12:00:00 AM EDT eCW1 ([facility]) O16.3 [id number] Unspecified maternal hypertension, third trimester Problem 01/16/2020 12:00:00 AM EDT eCW1 ([facility]) O16.3 [id number] Unspecified maternal hypertension, third trimester Problem 01/16/2020 12:00:00 AM EDT eCW1 ([facility]) F32.9 [id number] Major depressive disorder, single episode , unspecified Problem 11/14/2019 12:00:00 AM EST eCW1 ([facility]) O99.013 [id number] Anemia affecting in third trime ster Problem 11/14/2019 12:00:00 AM EST eCW1 ([facility]) F32.9 [id number] Major depressive disorder, single episode , unspecified Problem 11/14/2019 12:00:00 AM EST eCW1 ([facility]) O99.013 [id number] Anemia affecting in third trime ster Problem 11/14/2019 12:00:00 AM EST eCW1 ([facility]) J029 Acute pharyngitis, unspecified Acute pharyngitis, unsp ecified Diagnosis 06/12/2020 03:00:00 PM EDT [facility] Surgeries/Procedures Procedure Description Date Indications Data Source(s) CARE VISIT 02/13/2020 12:00:00 AM EDT eCW1 ([facility]) OB Visit 01/23/2020 12:00:00 AM EDT e CW1 ([facility]) TDAP 0.5mL (Boost[facility]) 11/28/2019 12:00:00 AM EST eCW1 ([facility]) IMMUNIZATION ADMIN 11/28/2019 12:00:00 AM EST eCW1 ([facility]) Results ID Date Data Source HCG, SERUM QUANTITATIVE 11/19/2020 12:00:00 AM EST eCW1 ([facility]) Name Value Range Interpretation Code Description Data Trini rce(s) Supporting Document(s) 32187 HCG, SERUM QUANTITATIVE eCW1 ( [facility]) ID Date Data Source [id number] 06/15/2020 11:14:00 AM EDT [facility] Name Value Range Interpretation Code Description Data Trini rce(s) Supporting Document(s) CULTURE UPPER RESPIRATORY [facility] _CULTURE UPPER RESPIRATORY_$$[id number]$$[id number]$$[id number]$$[id number]$$[id number]$$[id number]$$[id number] DATE/TIME: 06/15/2020 11:06Culture: CULTURE UPPER RESPIRATORY Status: FinalUpper Respiratory Culture: [id number] respiratory floraP1 Test performed by: [facility] CLIA #: [id number] [address] [place] [id number] [facility] [id number] Director : Chu Kan MD NPI #:U.[place]. Senator : [id number] REF ID Date Data Source [id number] 06/12/2020 12:00:00 PM EDT [facility] Name Value Range Interpretation Code Description Data Trini rce(s) Supporting Document(s) SARS coronavirus 2 RNA [facility] This lab was ordered by [facility] jorge and reported by [facility]. ID Date Data Source [id number] 06/14/2020 12:37:00 PM EDT [facility] Name Value Range Interpretation Code Description Data Trini rce(s) Supporting Document(s) SARS-CoV-2, SIMONE Not Detected Not Detected [facility] This test was developed and its performa nce characteristics determinedby [facility]. This test has not been FDA cleared orapproved. This test has been authorized by FDA under an Emergency UseAuthorization (EUA). This test is only authorized for the duration oftime the declaration that circumstances exist justifying theauthorization of the emergency use of in vitro diagnostic tests fordetection of SARS-CoV-2 virus and/or diagnosis of COVID-19 infectionunder section 564(b)(1) of the Act, 21 U.S.C. 360bbb-3(b)(1), unlessthe authorization is terminated or revoked sooner.When diagnostic testing is negative, the possibility of a falsenegative result should be considered in the context of a patient'srecent exposures and the presence of clinical signs and symptomsconsistent with COVID-19. An individual without symptoms of COVID-19and who is not shedding SARS-CoV-2 virus would expect to have anegative (not detected) result in this assay. ID Date Data Source TOTAL PROTEIN,RANDOM URINE 01/16/2020 12:00:00 AM EDT eCW1 ( [facility]) Name Value Range Interpretation Code Description Data Trini rce(s) Supporting Document(s) 13.7 0.0-12.0 TOTAL PROTEIN,RANDOM URIN E eCW1 ([facility]) ID Date Data Source CREATININE,RANDOM URINE 01/16/2020 12:00:00 AM EDT eCW1 ([facility]) Name Value Range Interpretation Code Description Data Trini rce(s) Supporting Document(s) 77.0 CREATININE,RANDOM URINE eCW1 ( [facility]) ID Date Data Source Pre Eclampsia Profile 01/16/2020 12:00:00 AM EDT eCW1 ([facility]) Name Value Range Interpretation Code Description Data Trini rce(s) Supporting Document(s) > 60.0 >60 GLOMERULAR FILTRATION RATE eCW 1 ([facility]) 16 12-78 ALT/SGPT eCW1 ([facility]) 17 7-37 AST/SGOT eCW1 ([facility]) 0.63 0.55-1.30 CREATININE FOR GFR eCW1 ([facility]) 0.4 0.2-1.0 BILIRUBIN,TOTAL eCW1 ([facility]) 179 84-246 LDH LACTATE DEHYDROGENASE eCW1 ([facility]) 4.3 2.6-6.0 URIC ACID eCW1 ([facility]) ID Date Data Source CBC - Complete Blood Count 01/16/2020 12:00:00 AM EDT eCW1 ( [facility]) Name Value Range Interpretation Code Description Data Trini rce(s) Supporting Document(s) 8.4 4.0-10.0 WHITE BLOOD COUNT eCW1 (Counts include 234 beds at [facility]) 3.39 4.00-5.40 RED BLOOD COUNT eCW1 ([facility]) 11.3 12.0-15.5 HEMOGLOBIN eCW1 ([facility]) 102.1 80.0-96.0 MEAN CORPUSCULAR VOLUME e CW1 ([facility]) 34.6 36.0-47.0 HEMATOCRIT eCW1 ([facility]) 224 150-450 PLATELET COUNT, AUTOMATED eCW1 ([facility]) 33.3 27.0-33.0 MEAN CORPUSCULAR HEMOGLOB IN eCW1 ([facility]) 32.7 32.0-36.5 MEAN CORPUSCULAR HGB CONC eCW1 ([facility]) 14.9 11.5-14.5 RED CELL DISTRIBUTION WID TH eCW1 ([facility]) ID Date Data Source GLUCOSE CHALLENGE TEST 1 HR 10/30/2019 12:00:00 AM EST eCW1 ([facility]) Name Value Range Interpretation Code Description Data Trini rce(s) Supporting Document(s) 106 LESS THAN 140 GLUCOSE CHALLENGE TEST 1 HOUR eCW1 ([facility]) ID Date Data Source CBC 10/30/2019 12:00:00 AM EST eCW1 ([facility]) Name Value Range Interpretation Code Description Data Trini rce(s) Supporting Document(s) 9.9 12.0-15.5 HEMOGLOBIN eCW1 ([facility]) 10.0 4.0-10.0 WHITE BLOOD COUNT eCW1 (Counts include 234 beds at the [facility]) 3.05 4.00-5.40 RED BLOOD COUNT eCW1 ([facility]) 30.7 36.0-47.0 HEMATOCRIT eCW1 ([facility]) 100.7 80.0-96.0 MEAN CORPUSCULAR VOLUME e CW1 ([facility]) 32.5 27.0-33.0 MEAN CORPUSCULAR HEMOGLOB IN eCW1 ([facility]) 32.2 32.0-36.5 MEAN CORPUSCULAR HGB CONC eCW1 ([facility]) 250 150-450 PLATELET COUNT, AUTOMATED eCW1 ([facility]) 12.9 11.5-14.5 RED CELL DISTRIBUTION WID TH eCW1 ([facility]) ID Date Data Source Type and Screen (D Rh Antibody Screen) 10/30/2019 12:00:00 A M EST eCW1 ([facility]) Name Value Range Interpretation Code Description Data Trini rce(s) Supporting Document(s) NEGATIVE AB SCREEN (INDIRECT COOMB S)VIS eCW1 ([facility]) O POSITIVE BLOOD TYPE [facility] ID Date Data Source VITAMIN D 1,25 DIHYDROXY 10/11/2019 12:00:00 AM EST eCW1 ([facility]) Name Value Range Interpretation Code Description Data Trini rce(s) Supporting Document(s) 77.1 19.9-79.3 VITAMIN D 1,25 DIHYDROXY eCW1 ([facility]) ID Date Data Source FREE T4 & TSH PANEL 10/11/2019 12:00:00 AM EST eCW1 ([facility]) Name Value Range Interpretation Code Description Data Trini rce(s) Supporting Document(s) 1.070 0.358-3.740 THYROID STIMULATING HORM ONE eCW1 ([facility]) 0.83 0.76-1.46 FREE T4 eCW1 ([facility]) Procedure Social History Code Duration Value Status Description Data Source(s ) Smoking 11/19/2020 12:00:00 AM EST Never Smoker completed Never S moker eCW1 ([facility]) Smoking 11/19/2020 12:00:00 AM EST Never Smoker completed Never S moker eCW1 ([facility]) Smoking 11/15/2020 12:00:00 AM EST Never Smoker completed Never S moker eCW1 ([facility]) Smoking 11/05/2020 12:00:00 AM EST Never Smoker completed Never S moker eCW1 ([facility]) Smoking 11/05/2020 12:00:00 AM EST Never Smoker completed Never S moker eCW1 ([facility]) Smoking 07/20/2020 12:00:00 AM EDT Never Smoker completed Never S moker eCW1 ([facility]) Smoking 07/20/2020 12:00:00 AM EDT Never Smoker completed Never S moker eCW1 ([facility]) Smoking 04/08/2020 12:00:00 AM EDT Never Smoker completed Never S moker eCW1 ([facility]) Smoking 02/13/2020 12:00:00 AM EDT Never Smoker completed Never S moker eCW1 ([facility]) Vital Signs ID Date Data Source UNK Name Value Range Interpretation Code Description Data Source(s) Diastolic blood pressure 70 mm[Hg] 70 mm[Hg] eCW1 ([facility]) Systolic blood pressure 120 mm[Hg] 120 mm[Hg] e CW1 ([facility]) Body mass index (BMI) [Ratio] 29.29 kg/m2 29.29 kg/m2 eCW1 ([facility]) Body height 67 [in_i] 67 [in_i] eCW1 ([facility]) Body weight 187.0 [lb_av] 187.0 [lb_av] eCW1 ([facility]) Diastolic blood pressure 82 mm[Hg] 82 mm[Hg] eCW1 ([facility]) Systolic blood pressure 138 mm[Hg] 138 mm[Hg] e CW1 ([facility]) Body mass index (BMI) [Ratio] 29.194 kg/m2 29.1 94 kg/m2 eCW1 ([facility]) Body height 67 [in_i] 67 [in_i] eCW1 ([facility]) Body weight 186.4 [lb_av] 186.4 [lb_av] eCW1 ([facility]) Diastolic blood pressure 68 mm[Hg] 68 mm[Hg] eCW1 ([facility]) Systolic blood pressure 114 mm[Hg] 114 mm[Hg] e CW1 ([facility]) Body mass index (BMI) [Ratio] 32.17 kg/m2 32.17 kg/m2 eCW1 ([facility]) Body height 67 [in_us] 67 [in_us] eCW1 ([facility]) Body weight Measured 205.4 [lb_av] 205.4 [lb_av ] eCW1 ([facility]) Diastolic blood pressure 74 mm[Hg] 74 mm[Hg] eCW1 ([facility]) Systolic blood pressure 122 mm[Hg] 122 mm[Hg] e CW1 ([facility]) Body mass index (BMI) [Ratio] 36.775 kg/m2 36.7 75 kg/m2 eCW1 ([facility]) Body height 67 [in_us] 67 [in_us] eCW1 ([facility]) Body weight Measured 234.8 [lb_av] 234.8 [lb_av ] eCW1 ([facility]) Diastolic blood pressure 72 mm[Hg] 72 mm[Hg] eCW1 ([facility]) Systolic blood pressure 130 mm[Hg] 130 mm[Hg] e CW1 ([facility]) Body mass index (BMI) [Ratio] 36.211 kg/m2 36.2 11 kg/m2 eCW1 ([facility]) Body height 67 [in_us] 67 [in_us] eCW1 ([facility]) Body weight Measured 231.2 [lb_av] 231.2 [lb_av ] eCW1 ([facility]) Diastolic blood pressure 84 mm[Hg] 84 mm[Hg] eCW1 ([facility]) Systolic blood pressure 150 mm[Hg] 150 mm[Hg] e CW1 ([facility]) Body mass index (BMI) [Ratio] 36.086 kg/m2 36.0 86 kg/m2 eCW1 ([facility]) Body height 67 [in_us] 67 [in_us] eCW1 ([facility]) Body weight Measured 230.4 [lb_av] 230.4 [lb_av ] eCW1 ([facility]) Diastolic blood pressure 70 mm[Hg] 70 mm[Hg] eCW1 ([facility]) Systolic blood pressure 138 mm[Hg] 138 mm[Hg] e CW1 ([facility]) Body mass index (BMI) [Ratio] 35.679 kg/m2 35.6 79 kg/m2 eCW1 ([facility]) Body height 67 [in_us] 67 [in_us] eCW1 ([facility]) Body weight Measured 227.8 [lb_av] 227.8 [lb_av ] eCW1 ([facility]) Diastolic blood pressure 78 mm[Hg] 78 mm[Hg] eCW1 ([facility]) Systolic blood pressure 120 mm[Hg] 120 mm[Hg] e CW1 ([facility]) Body mass index (BMI) [Ratio] 35.428 kg/m2 35.4 28 kg/m2 eCW1 ([facility]) Body height 67 [in_us] 67 [in_us] eCW1 ([facility]) Body weight Measured 226.2 [lb_av] 226.2 [lb_av ] eCW1 ([facility]) Diastolic blood pressure 80 mm[Hg] 80 mm[Hg] eCW1 ([facility]) Systolic blood pressure 122 mm[Hg] 122 mm[Hg] e CW1 ([facility]) Body mass index (BMI) [Ratio] 35.365 kg/m2 35.3 65 kg/m2 eCW1 ([facility]) Body height 67 [in_us] 67 [in_us] eCW1 ([facility]) Body weight Measured 225.8 [lb_av] 225.8 [lb_av ] eCW1 ([facility]) Diastolic blood pressure 74 mm[Hg] 74 mm[Hg] eCW1 ([facility]) Systolic blood pressure 130 mm[Hg] 130 mm[Hg] e CW1 ([facility]) Body mass index (BMI) [Ratio] 34.864 kg/m2 34.8 64 kg/m2 W1 ([facility]) Body height 67 [in_us] 67 [in_us] eCW1 ([facility]) Body weight Measured 222.6 [lb_av] 222.6 [lb_av ] eCW1 ([facility]) Diastolic blood pressure 70 mm[Hg] 70 mm[Hg] eCW1 ([facility]) Systolic blood pressure 124 mm[Hg] 124 mm[Hg] e CW1 ([facility]) Body mass index (BMI) [Ratio] 34.426 kg/m2 34.4 26 kg/m2 eCW1 ([facility]) Body height 67 [in_us] 67 [in_us] eCW1 ([facility]) Body weight Measured 219.8 [lb_av] 219.8 [lb_av ] eCW1 ([facility]) Diastolic blood pressure 72 mm[Hg] 72 mm[Hg] eCW1 ([facility]) Systolic blood pressure 120 mm[Hg] 120 mm[Hg] e CW1 ([facility]) Body mass index (BMI) [Ratio] 33.956 kg/m2 33.9 56 kg/m2 eCW1 ([facility]) Body height 67 [in_us] 67 [in_us] eCW1 ([facility]) Body weight Measured 216.8 [lb_av] 216.8 [lb_av ] eCW1 ([facility]) Diastolic blood pressure 62 mm[Hg] 62 mm[Hg] eCW1 ([facility]) Systolic blood pressure 112 mm[Hg] 112 mm[Hg] e CW1 ([facility]) Body mass index (BMI) [Ratio] 33.235 kg/m2 33.2 35 kg/m2 eCW1 ([facility]) Body height 67 [in_us] 67 [in_us] eCW1 ([facility]) Body weight Measured 212.2 [lb_av] 212.2 [lb_av ] eCW1 ([facility]) Patient Treatment Plan of Care Planned Activity Planned Date Details Description Data Source (s) topiramate 25 MG Oral Tablet [Topamax] 04/22/2020 12:00:00 AM EDT eCW1 ([facility]) topiramate 25 MG Oral Tablet [Topamax] 04/22/2020 12:00:00 AM EDT eCW1 ([facility]) topiramate 25 MG Oral Tablet [Topamax] 04/22/2020 12:00:00 AM EDT eCW1 ([facility]) 24 HR venlafaxine 37.5 MG Extended Release Oral Capsul e [Effexor] 04/08/2020 12:00:00 AM EDT eCW1 ([facility]) topiramate 25 MG Oral Tablet [Topamax] 04/08/2020 12:00:00 AM EDT eCW1 ([facility]) 24 HR venlafaxine 37.5 MG Extended Release Oral Capsul e [Effexor] 04/08/2020 12:00:00 AM EDT eCW1 ([facility]) topiramate 25 MG Oral Tablet [Topamax] 04/08/2020 12:00:00 AM EDT eCW1 ([facility]) 24 HR venlafaxine 37.5 MG Extended Release Oral Capsul e [Effexor] 04/08/2020 12:00:00 AM EDT eCW1 ([facility]) topiramate 25 MG Oral Tablet [Topamax] 04/08/2020 12:00:00 AM EDT eCW1 ([facility]) 24 HR venlafaxine 37.5 MG Extended Release Oral Capsul e 03/05/2020 12:00:00 AM EDT eCW1 ([facility]) Sertraline 100 MG Oral Tablet [Zoloft] 02/13/2020 12:00:00 AM EDT eCW1 ([facility]) Sertraline 100 MG Oral Tablet [Zoloft] 02/13/2020 12:00:00 AM EDT eCW1 ([facility]) Sertraline 50 MG Oral Tablet [Zoloft] 02/12/2020 12:00:00 AM EDT eCW1 ([facility]) Fluconazole 150 MG Oral Tablet [Diflucan] 11/23/2019 12:00:00 AM ES T eCW1 ([facility]) Metronidazole 500 MG Oral Tablet 11/23/2019 12:00:00 AM EST eCW1 ([facility]) Docusate Sodium 100 MG Oral Tablet 11/14/2019 12:00:00 AM EST eCW1 ([facility]) ferrous gluconate 324 MG Oral Tablet 11/14/2019 12:00:00 AM EST eCW1 ([facility]) Sertraline 25 MG Oral Tablet [Zoloft] 11/14/2019 12:00:00 AM EST eCW1 ([facility])
--- OUTSIDE RECORDS SUMMARY | 2020-12-06 16:43 | CCD ---
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 013 Active confirmed 41528381 Problem Unspecified maternal hypertension, third trimester O16.3 Active confirmed 964145315 Problem Moderate episode of recurrent major depressive disorder F33.1 Active confirmed [id number] ALLERGIES No Known Allergies ENCOUNTERS from 1991 to 2020-11-17 Encounter Location Date Provider Diagnosis [facility] [address] [place] [phone] Oct, Leigh Worley Maternal care due to low transverse uterine scar from previous delivery O34.211 and 9 weeks gestation of Z3A.09 IMMUNIZATIONS Vaccine Route Administration Date Status TDAP [...] REASON FOR REFERRAL No Information VITAL SIGNS Weight 186.4 lbs Oct, Height 67 in Oct, BMI 29.194 kg/m2 Oct, Blood pressure systolic 138 mm Hg Oct, Blood pressure diastolic 82 mm Hg Oct, MEDICATIONS Medication SIG (Take, Route, Frequency, Duration) Notes Start Da te End Date Status Diflucan 150 MG 1 tablet Orally one time Nov, Not-Taking Vitamin 27-0.8 MG 1 tablet Orally Once a day Active Zoloft 50 MG 1 tablet Orally Once a day for 30 day(s) Not-Taking Effexor XR 37.5 MG 1 capsule with food Orally Once a day for 30 day(s) Mar, Not-Taking Topamax 25 MG 1 tablet in the morning and 2 tablets in the evening Orally for 1 week then increase to 2 tabs by mouth twice per day Apr, Not-Taking Esgic 50-325-40 MG 1 capsule as needed Orally every 4 hrs Not-Taking Zoloft 25 MG 1 tablet Orally Once a day for 30 day(s) 30 2019 Not-Taking Ferrous Gluconate 324 (38 Fe) MG 1 tablet with water o r juice between meals Orally three times per day Oct, Not-T aking Venlafaxine HCl ER 37.5 MG 1 capsule with food Orally Once a day for 30 day(s) February, Not-Taking Stool Softener 100 MG 1 tablet as needed for constipation Orally BID Oct, Not-Taking Metronidazole 500 MG 1 tablet Orally Twice a day for 7 days Nov, Not-Taking Topamax 25 MG 1 tablet Orally daily at [facility] for 7 days then increase dose to 1 tab by mouth twice per day for 1 week for 14 days Mar, Not-Taking Wellbutrin SR 150 MG 1 tablet in the morning Orally Once a day Active Zoloft 50 MG 1 tablet Orally Once a day for 30 day(s) 29 A 2019 Not-Taking PROCEDURES No Information RESULTS Component Value Reference Range HCG, SERUM QUANTITATIVE Reviewed date:11/09/2020 09:43:39 Interpretation: Performing Lab:[facility], [facility] [address] [facility] [address] , ,[place] [address] HCG, SERUM QUANTITATIVE 970229 REASON FOR VISIT 1ST PN VISIT MEDICAL (GENERAL) HISTORY Type Description Date Medical History migraine headaches Surgical History lasik Surgical History 01/29/2020 Hospitalization History Childbirth Goals Section No Information Health Concerns No Information MEDICAL EQUIPMENT No Information MENTAL STATUS No Information FUNCTIONAL STATUS No Information ASSESSMENTS Encounter Date Diagnosis Assessment Notes Treatment Notes Treatm ent Clinical Notes Oct, Maternal care due to low tra nsverse uterine scar from previous delivery (ICD-10 - O34.211) Oct, 9 weeks gestation of (ICD-10 - Z3A.09) PLAN OF TREATMENT Next Appt Details 1 week Reason: Provider Name:Leigh Worley, 2020-11-19 09:00:00 AM, [address] [place], [address], Follow Up:1 weekprenatal Insurance Providers Payer Name Payer Address Payer Phone Insured Name Patient Relati onship to Insured Coverage Start Date Coverage End Date [employer] DEPT [address] [place] [phone] NO RUIZ
--- OUTSIDE RECORDS SUMMARY | 2020-12-06 16:43 | CCD ---
Author Author [facility] Organization [facility] Address Unknown Phone Unavailable Care Team Providers Care Community Liaison Officer Name Role Phone Leigh Worley Unavailable PROBLEMS Type Condition ICD9-CM Code [id number] Code Onset Dates Condition S tatus SNOMED Code Notes Problem Migraine without aura and without status migrain osus, not intractable G43.009 Active 493828207 Problem Supervision of other normal Z34.80 Ac tive 709732694 Problem Major depressive disorder, single episode, unspecified F32.9 Active 62129729 Problem Anemia affecting in third trimester O99. 013 Active 95045843 Problem Unspecified maternal hypertension, third trimester O16.3 Active 290893293 Problem Moderate episode of recurrent major depressive disorder F33.1 Active 827910559 ALLERGIES No Known Allergies ENCOUNTERS from 1991 to 2020-11-12 Encounter Location Date Provider Diagnosis [facility] Care [address] [place] [phone] Oct, Leigh Meir IMMUNIZATIONS Vaccine Route Administration Date Status TDAP [...] a day for 30 day(s) 30 J 2019 Not-Taking Ferrous Gluconate 324 (38 Fe) [...] 25 MG 1 tablet Orally daily at [facility] for 7 days then increase dose to 1 tab by mouth twice per day for 1 week for 14 days Mar, Not-Taking Wellbutrin SR 150 MG 1 tablet in the morning Orally Once a day Active Zoloft 50 MG 1 tablet Orally Once a day for 30 day(s) 29 A , 2019 Not-Taking PROCEDURES No Information RESULTS No Results REASON FOR VISIT quant levels MEDICAL (GENERAL) HISTORY Type Description Date Medical History migraine headaches Surgical History lasik Surgical History 01/29/2020 Hospitalization History Childbirth Goals Section No Information Health Concerns No Information MEDICAL EQUIPMENT No Information MENTAL STATUS No Information FUNCTIONAL STATUS No Information ASSESSMENTS No Information PLAN OF TREATMENT Next Appt Details Provider Name:Leigh Solorzano Meir, 2020-11-19 09:00:00 AM, [address] [place], [address], Insurance Providers Payer Name Payer Address Payer Phone Insured Name Patient Relati onship to Insured Coverage Start Date Coverage End Date [facility] DE[facility] [address] [place] [phone] NO RUIZ self
--- OUTSIDE RECORDS SUMMARY | 2020-12-06 16:43 | CCD ---
Author Author [facility] Organization [facility] Address Unknown Phone Unavailable Care Team Providers Care Salesperson Parts Name Role Phone Leigh Worley Unavailable PROBLEMS Type Condition ICD9-CM Code [id number] Code Onset Dates Condition S tatus W/U Status Risk SNOMED Code Notes Problem Moderate episode of recurrent major depressive disorder F33.1 Active confirmed 514244904 Problem Migraine without aura and without status migrain osus, not intractable G43.009 Active confirmed 380216308 Problem Anemia affecting in third trimester O99. 013 Active confirmed 19732127 Problem Major depressive disorder, single episode, unspecified F32.9 Active confirmed 87907496 Problem Unspecified maternal hypertension, third trimester O16.3 Active confirmed 675945910 ALLERGIES No Known Allergies ENCOUNTERS from 1991 to 2020-11-25 Encounter Location Date Provider Diagnosis [facility] [address] [place] [phone] 04 Nov, 2020 Leigh Worley Missed O02. 1 IMMUNIZATIONS Vaccine Route Administration Date Status TDAP [...] FOR REFERRAL No Information VITAL SIGNS Weight 187.0 lbs Nov, Height 67 in Nov, BMI 29.29 kg/m2 Nov, Blood pressure systolic 120 mm Hg Nov, Blood pressure diastolic 70 mm Hg Nov, MEDICATIONS Medication SIG (Take, Route, Frequency, Duration) [...] 25 MG 1 tablet Orally daily at [facility] for 7 days then increase [...] 30 day(s) 29 A , 2019 Not-Taking Zoloft 50 MG 1 tablet Orally [...] J an2019 Not-Taking PROCEDURES No Information RESULTS Component Value Reference Range HCG, SERUM QUANTITATIVE Reviewed date:11/19/2020 13:18:28 Interpretation: Performing Lab:[facility], [facility] [address] [place] [address] , ,[place] [address] HCG, SERUM QUANTITATIVE 19222 REASON FOR VISIT VIABILITY SONO MEDICAL (GENERAL) HISTORY Type Description Date Medical History migraine headaches Surgical History lasik Surgical History 01/29/2020 Hospitalization History Childbirth Goals Section No Information Health Concerns No Information MEDICAL EQUIPMENT No Information MENTAL STATUS No Information FUNCTIONAL STATUS No Information ASSESSMENTS Encounter Date Diagnosis Assessment Notes Treatment Notes Treatm ent Clinical Notes Nov, Missed (ICD-10 - O02.1) Will continue to follow hcg levels. Reviewed between completed hcg levels and repeated ultrasounds that this is likely going to be a spontaneous miscarriage on it's own. Reviewed options with patient including expectant management, cytotec, and D&C options. Patient will wait until next week and ocnsider Cytotec for missed AB if no spontaneous miscarriage by next week. Reviewed abnormal signs with patient including hemorrhage, severe abdominal pain and fever. Reviewed that these are signs she needs to go into L&D for. F/u next week. PLAN OF TREATMENT Treatment Notes Assessment Notes Clinical Notes Missed Will continue to follow hcg levels. Reviewed between completed hcg levels and repeated ultrasounds that this is likely going to be a spontaneous miscarriage on it's own. Reviewed options with patient including expectant management, cytotec, and D&C options. Patient will wait until next week and ocnsider Cytotec for missed AB if no spontaneous miscarriage by next week. Reviewed abnormal signs with patient including hemorrhage, severe abdominal pain and fever. Reviewed that these are signs she needs to go into L&D for.F/u next week. Next Appt Details 1 Week Reason:f/u Provider Name:Leigh Worley, 2020-11-27 08:40:00 AM, [address] [place], [address], Follow Up:1 Weekf/u Insurance Providers Payer Name Payer Address Payer Phone Insured Name Patient Relati onship to Insured Coverage Start Date Coverage End Date [facility] [employer] DE[facility] [address] [facility] [phone] NO RUIZ
--- OUTSIDE RECORDS SUMMARY | 2020-12-06 16:43 | CCD ---
Author Author [facility] Organization [facility] Address Unknown Phone Unavailable Care Team Providers Care Hris Manager Name Role Phone Leigh Worley Unavailable PROBLEMS Type Condition ICD9-CM Code FRQ50-HE Code Onset Dates Condition S tatus SNOMED Code Notes Problem Migraine without aura and without status migrain osus, not intractable G43.009 Active 287946619 Problem Supervision of other normal Z34.80 Ac tive 729391788 Problem Major depressive disorder, single episode, unspecified F32.9 Active 91965603 Problem Anemia affecting in third trimester O99. 013 Active 28987855 Problem Unspecified maternal hypertension, third trimester O16.3 Active 727602944 Problem Moderate episode of recurrent major depressive disorder F33.1 Active 544438982 ALLERGIES No Known Allergies ENCOUNTERS from 1991 to 2020-11-09 Encounter Location Date Provider Diagnosis [facility] [address] [place] [phone] Oct, Leigh Worley IMMUNIZATIONS Vaccine Route Administration Date [...] Notes Start Da te End Date Status Stool Softener 100 MG 1 tablet as needed for constipation Orally BID Oct, Unknown Wellbutrin SR 150 MG 1 tablet in the morning Orally Once a day Active Zoloft 25 MG 1 tablet Orally Once a day for 30 day(s) 30 2019 Unknown Diflucan 150 MG 1 tablet Orally one time Nov, Unknown Esgic 50-325-40 MG 1 capsule as needed Orally every 4 hrs Unknown Ferrous Gluconate 324 (38 Fe) MG 1 tablet with water o r juice between meals Orally three times per day Oct, Unkno wn Vitamin 27-0.8 MG 1 tablet Orally Once a day Active Zoloft 50 MG 1 tablet Orally Once a day for 30 day(s) 29 A 2019 Unknown Topamax 25 MG 1 tablet Orally daily at [facility] for 7 days then increase dose to 1 tab by mouth twice per day for 1 week for 14 days Mar, Not-Taking Effexor XR 37.5 MG 1 capsule with food Orally Once a day for 30 day(s) Mar, Not-Taking Topamax 25 MG 1 tablet in the morning and 2 tablets in the evening Orally for 1 week then increase to 2 tabs by mouth twice per day Apr, Not-Taking Metronidazole 500 MG 1 tablet Orally Twice a day for 7 days Nov, Unknown Venlafaxine HCl ER 37.5 MG 1 capsule with food Orally Once a day for 30 day(s) February, Unknown Zoloft 50 MG 1 tablet Orally Once a day for 30 day(s) Unknown PROCEDURES No Information RESULTS No Results REASON FOR VISIT hcg results MEDICAL (GENERAL) HISTORY Type Description Date Medical History migraine headaches Surgical History lasik Surgical History 01/29/2020 Hospitalization History Childbirth Goals Section No Information Health Concerns No Information MEDICAL EQUIPMENT No Information MENTAL STATUS No Information FUNCTIONAL STATUS No Information ASSESSMENTS No Information PLAN OF TREATMENT Next Appt Details Provider Name:Leigh Worley, 2020-11-11 10:20:00 AM, [facility] [place], [address], Insurance Providers Payer Name Payer Address Payer Phone Insured Name Patient Relati onship to Insured Coverage Start Date Coverage End Date [facility] [employer] CLAIMS DEPT [address] [place] [phone] NO RUIZ self
[2020-12-06 17:37] LABS: BASO % 0.2 % (0.0-1.0); EOS % 0.2 % (0.0-3.0); HEMOGLOBIN 9.9 g/dl (12.0-15.5); LYMPH # 1.2 10^3/uL (1.5-5.0); LYMPH % 10.3 % (24.0-44.0); MEAN CORPUSCULAR HEMOGLOBIN 32.7 pg (27.0-33.0); MONO # 0.4 10^3/uL (0.0-0.8); MONO % 3.6 % (2.0-8.0); NEUTROPHILS # 9.8 10^3/uL (1.5-8.5); NEUTROPHILS % 85.4 % (36.0-66.0); PLATELET COUNT, AUTOMATED 322 10^3/uL (150-450); RED BLOOD COUNT 3.03 10^6/uL (4.00-5.40); WHITE BLOOD COUNT 11.5 10^3/uL (4.0-10.0)
--- OUTSIDE RECORDS SUMMARY | 2020-12-06 17:45 | CCD ---
Author Author [facility] Organization [facility] Address Unknown Phone Unavailable Care Team Providers Care Research Quality Assurance Analyst Name Role Phone LiJacobnbo PA Unavailable Unavailable Li, Zhenbo PA Unavailable [...] is protected by Article 27-F of the [facility] Public Health law. If you continue you may have access to information: Regarding HIV / AIDS; Provided by facilities licensed or operated by the [facility] Office of Mental Health; or Provided by the [facility] Office for People With Developmental Disabilities. If such information is present, then the following [facility] mandated warning applies: This information has been [...] law may result in a fine or residential sentence or both. A general authorization for the release of medical or other information is NOT sufficient authorization for further disc losure. Family History Family Member Name Family Member Gender Family Member Status Date o f Status Description Data Source(s) Unknown Female Problem MEDENT ([facility]) Encounters Encounter Providers Location Date Indications Data Source(s ) [place] [address] [facility] [place] [address] 11/19/2020 12:00:00 AM EST eCW1 ([facility]) [place] [address] [facility] [place] [address] 11/19/2020 12:00:00 AM EST eCW1 ([facility]) [place] [address] [facility] [place] [address] 11/12/2020 12:00:00 AM EST eCW1 ([facility]) Unknown [address] [facility] [place] [address] 11/09/2020 12:00:00 AM EST eCW1 ([facility]) ([facility]) [facility]Center Est OB [address] [place] [address] 11/04/2020 12:00:00 AM EST eCW1 ([facility]) [place] [address] [facility] [place] [address] 08/31/2020 12:00:00 AM EST [facility]CW[facility] Unknown [address] [facility] [place] [address] 08/24/2020 12:00:00 AM EST [facility]CW1 [facility] Unknown [address] [facility] [place] [address] 07/17/2020 12:00:00 AM EDT eCW1 ([facility]) Outpatient Attender: Armida BRAR 0 03:00:00 PM EDT - 06/12/2020 03:00:00 PM EDT [facility] Outpatient Attender: Armida BRAR [facility] 06/12/2020 03:00:00 PM EDT MEDENT ([facility]) [facility] [address] [place] [address] 03/26/2020 12:00:00 AM EDT eCW1 ([facility]) Unknown [address] [facility] [place] [address] 03/05/2020 12:00:00 AM EDT eCW1 ([facility]) [facility] [address] [place] [address] 02/13/2020 12:00:00 AM EDT eCW1 ([facility]) [facility] [address] [place] [address] 02/11/2020 12:00:00 AM EDT eCW1 ([facility]) [facility] [address] [place] [address] 01/23/2020 12:00:00 AM EDT eCW1 ([facility]) [facility] [address] [place] [address] 01/17/2020 12:00:00 AM EDT eCW1 ([facility]) [facility] [address] [place] [address] 01/16/2020 12:00:00 AM EDT eCW1 ([facility]) [facility] [address] [place] [address] 01/09/2020 12:00:00 AM EDT eCW1 ([facility]) [facility] [address] [place] [address] 01/02/2020 12:00:00 AM EDT eCW1 ([facility]) [facility] [address] [place] [address] 12/26/2019 12:00:00 AM EDT eCW1 ([facility]) [facility] [address] [place] [address] 12/12/2019 12:00:00 AM EST eCW1 ([facility]) [facility] [address] [place] [address] 11/28/2019 12:00:00 AM EST eCW1 ([facility]) [facility] [address] [place] [address] 11/23/2019 12:00:00 AM EST eCW1 ([facility]) [facility] [address] [place] [address] 11/14/2019 12:00:00 AM EST eCW1 ([facility]) Outpatient 11/06/2019 10:41:00 AM EST [facility] [address] [place] [address] 10/17/2019 12:00:00 AM EST eCW1 ([facility]) Immunizations Vaccine Date Status Description Data Source(s) Tdap 11/28/2019 08:49:00 AM EST completed e CW1 ([facility]) Tdap 11/28/2019 08:49:00 AM EST completed e CW1 ([facility]) Tdap 11/28/2019 08:49:00 AM EST completed e CW1 ([facility]) Tdap 11/28/2019 08:49:00 AM EST completed e CW1 ([facility]) Tdap 11/28/2019 08:49:00 AM EST completed e CW1 ([facility]) Tdap 11/28/2019 08:49:00 AM EST completed e CW1 ([facility]) Tdap 11/28/2019 08:49:00 AM EST completed e CW1 ([facility]) Tdap 11/28/2019 08:49:00 AM EST completed e CW1 ([facility]) Tdap 11/28/2019 08:49:00 AM EST completed e CW1 ([facility]) Tdap 11/28/2019 08:49:00 AM EST completed e CW1 ([facility]) Medications Medication Brand Name Start Date Product Form Dose Route Admi nistrative Instructions Pharmacy Instructions Status Indications Reaction Description Data Source(s) topiramate 25 MG Oral Tablet [Topamax] Topamax 25 MG Topamax 25 MG 04/22/2020 12:00:00 AM EDT suspended Topam ax 25 MG eCW1 ([facility]) topiramate 25 MG Oral Tablet [Topamax] Topamax 25 MG Topamax 25 MG 04/22/2020 12:00:00 AM EDT suspended Topam ax 25 MG eCW1 ([facility]) topiramate 25 MG Oral Tablet [Topamax] Topamax 25 MG Topamax 25 MG 04/22/2020 12:00:00 AM EDT suspended Topam ax 25 MG eCW1 ([facility]) topiramate 25 MG Oral Tablet [Topamax] Topamax 25 MG Topamax 25 MG 04/22/2020 12:00:00 AM EDT active Topamax 25 MG eCW1 ([facility]) topiramate 25 MG Oral Tablet [Topamax] Topamax 25 MG Topamax 25 MG 04/22/2020 12:00:00 AM EDT suspended Topam ax 25 MG eCW1 ([facility]) topiramate 25 MG Oral Tablet [Topamax] Topamax 25 MG Topamax 25 MG 04/22/2020 12:00:00 AM EDT active Topamax 25 MG eCW1 ([facility]) topiramate 25 MG Oral Tablet [Topamax] Topamax 25 MG Topamax 25 MG 04/22/2020 12:00:00 AM EDT suspended Topam ax 25 MG eCW1 ([facility]) topiramate 25 MG Oral Tablet [Topamax] Topamax 25 MG Topamax 25 MG 04/22/2020 12:00:00 AM EDT active Topamax 25 MG eCW1 ([facility]) 24 HR venlafaxine 37.5 MG Extended Relea se Oral Capsule [Effexor] Effexor XR 37.5 MG Effexor XR 37.5 MG 04/08/2020 12:00:00 AM EDT 1.0 {cap sule_with_food} suspended Effexor XR 37.5 MG e CW1 ([facility]) 24 HR venlafaxine 37.5 MG Extended Relea se Oral Capsule [Effexor] Effexor XR 37.5 MG Effexor XR 37.5 MG 04/08/2020 12:00:00 AM EDT 1.0 {cap sule_with_food} suspended Effexor XR 37.5 MG e CW1 ([facility]) topiramate 25 MG Oral Tablet [Topamax] Topamax 25 MG Topamax 25 MG 04/08/2020 12:00:00 AM EDT 1.0 {tablet} suspended Topamax 25 MG eCW1 ([facility]) topiramate 25 MG Oral Tablet [Topamax] Topamax 25 MG Topamax 25 MG 04/08/2020 12:00:00 AM EDT 1.0 {tablet} active To pamax 25 MG eCW1 ([facility]) 24 HR venlafaxine 37.5 MG Extended Relea se Oral Capsule [Effexor] Effexor XR 37.5 MG Effexor XR 37.5 MG 04/08/2020 12:00:00 AM EDT 1.0 {cap sule_with_food} suspended Effexor XR 37.5 MG e CW1 ([facility]) topiramate 25 MG Oral Tablet [Topamax] Topamax 25 MG Topamax 25 MG 04/08/2020 12:00:00 AM EDT 1.0 {tablet} suspended Topamax 25 MG eCW1 ([facility]) topiramate 25 MG Oral Tablet [Topamax] Topamax 25 MG Topamax 25 MG 04/08/2020 12:00:00 AM EDT 1.0 {tablet} active To pamax 25 MG eCW1 ([facility]) topiramate 25 MG Oral Tablet [Topamax] Topamax 25 MG Topamax 25 MG 04/08/2020 12:00:00 AM EDT 1.0 {tablet} suspended Topamax 25 MG eCW1 ([facility]) 24 HR venlafaxine 37.5 MG Extended Relea se Oral Capsule [Effexor] Effexor XR 37.5 MG Effexor XR 37.5 MG 04/08/2020 12:00:00 AM EDT 1.0 {cap sule_with_food} suspended Effexor XR 37.5 MG e CW1 ([facility]) topiramate 25 MG Oral Tablet [Topamax] Topamax 25 MG Topamax 25 MG 04/08/2020 12:00:00 AM EDT 1.0 {tablet} suspended Topamax 25 MG eCW1 ([facility]) 24 HR venlafaxine 37.5 MG Extended Relea se Oral Capsule [Effexor] Effexor XR 37.5 MG Effexor XR 37.5 MG 04/08/2020 12:00:00 AM EDT 1.0 {cap sule_with_food} active Effexor XR 37.5 MG e CW1 ([facility]) topiramate 25 MG Oral Tablet [Topamax] Topamax 25 MG Topamax 25 MG 04/08/2020 12:00:00 AM EDT 1.0 {tablet} suspended Topamax 25 MG eCW1 ([facility]) 24 HR venlafaxine 37.5 MG Extended Relea se Oral Capsule [Effexor] Effexor XR 37.5 MG Effexor XR 37.5 MG 04/08/2020 12:00:00 AM EDT 1.0 {cap sule_with_food} active Effexor XR 37.5 MG e CW1 ([facility]) 24 HR venlafaxine 37.5 MG Extended Relea se Oral Capsule [Effexor] Effexor XR 37.5 MG Effexor XR 37.5 MG 04/08/2020 12:00:00 AM EDT 1.0 {cap sule_with_food} suspended Effexor XR 37.5 MG e CW1 ([facility]) topiramate 25 MG Oral Tablet [Topamax] Topamax 25 MG Topamax 25 MG 04/08/2020 12:00:00 AM EDT 1.0 {tablet} active To pamax 25 MG eCW1 ([facility]) 24 HR venlafaxine 37.5 MG Extended Relea se Oral Capsule [Effexor] Effexor XR 37.5 MG Effexor XR 37.5 MG 04/08/2020 12:00:00 AM EDT 1.0 {cap sule_with_food} active Effexor XR 37.5 MG e CW1 ([facility]) 24 HR venlafaxine 37.5 MG Extended Relea se Oral Capsule Venlafaxine HCl ER 37.5 MG Venlafaxine HCl ER 37.5 MG 03/05/2020 12:00:00 AM EDT 1.0 {capsule_with_food} suspended Venlafaxin e HCl ER 37.5 MG eCW1 ([facility]) 24 HR venlafaxine 37.5 MG Extended Relea se Oral Capsule Venlafaxine HCl ER 37.5 MG Venlafaxine HCl ER 37.5 MG 03/05/2020 12:00:00 AM EDT 1.0 {capsule_with_food} suspended Venlafaxin e HCl ER 37.5 MG eCW1 ([facility]) 24 HR venlafaxine 37.5 MG Extended Relea se Oral Capsule Venlafaxine HCl ER 37.5 MG Venlafaxine HCl ER 37.5 MG 03/05/2020 12:00:00 AM EDT 1.0 {capsule_with_food} suspended Venlafaxin e HCl ER 37.5 MG eCW1 ([facility]) 24 HR venlafaxine 37.5 MG Extended Relea se Oral Capsule Venlafaxine HCl ER 37.5 MG Venlafaxine HCl ER 37.5 MG 03/05/2020 12:00:00 AM EDT 1.0 {capsule_with_food} suspended Venlafaxin e HCl ER 37.5 MG eCW1 ([facility]) 24 HR venlafaxine 37.5 MG Extended Relea se Oral Capsule Venlafaxine HCl ER 37.5 MG Venlafaxine HCl ER 37.5 MG 03/05/2020 12:00:00 AM EDT 1.0 {capsule_with_food} suspended Venlafaxin e HCl ER 37.5 MG eCW1 ([facility]) 24 HR venlafaxine 37.5 MG Extended Relea se Oral Capsule Venlafaxine HCl ER 37.5 MG Venlafaxine HCl ER 37.5 MG 03/05/2020 12:00:00 AM EDT 1.0 {capsule_with_food} active Venlafaxine HCl ER 37.5 MG eCW1 ([facility]) 24 HR venlafaxine 37.5 MG Extended Relea se Oral Capsule Venlafaxine HCl ER 37.5 MG Venlafaxine HCl ER 37.5 MG 03/05/2020 12:00:00 AM EDT 1.0 {capsule_with_food} suspended Venlafaxin e HCl ER 37.5 MG eCW1 ([facility]) 24 HR venlafaxine 37.5 MG Extended Relea se Oral Capsule Venlafaxine HCl ER 37.5 MG Venlafaxine HCl ER 37.5 MG 03/05/2020 12:00:00 AM EDT 1.0 {capsule_with_food} active Venlafaxine HCl ER 37.5 MG eCW1 ([facility]) 24 HR venlafaxine 37.5 MG Extended Relea se Oral Capsule Venlafaxine HCl ER 37.5 MG Venlafaxine HCl ER 37.5 MG 03/05/2020 12:00:00 AM EDT 1.0 {capsule_with_food} suspended Venlafaxin e HCl ER 37.5 MG eCW1 ([facility]) Sertraline 100 MG Oral Tablet [Zoloft] Zoloft 100 MG Zoloft 100 MG 02/13/2020 12:00:00 AM EDT active 1 tablet eCW1 ([facility]) Sertraline 100 MG Oral Tablet [Zoloft] Zoloft 100 MG Zoloft 100 MG 02/13/2020 12:00:00 AM EDT 1.0 {tablet} active Zo loft 100 MG eCW1 ([facility]) Sertraline 50 MG Oral Tablet [Zoloft] Zoloft 50 MG Zoloft 50 MG 02/12/2020 12:00:00 AM EDT 1.0 {tablet} active Zo loft 50 MG eCW1 ([facility]) Sertraline 50 MG Oral Tablet [Zoloft] Zoloft 50 MG Zoloft 50 MG 02/12/2020 12:00:00 AM EDT active 1 tablet eCW1 ([facility]) Sertraline 50 MG Oral Tablet [Zoloft] Zoloft 50 MG Zoloft 50 MG 02/12/2020 12:00:00 AM EDT 1.0 {tablet} suspended Zoloft 50 MG eCW1 ([facility]) Sertraline 50 MG Oral Tablet [Zoloft] Zoloft 50 MG Zoloft 50 MG 02/12/2020 12:00:00 AM EDT active 1 tablet eCW1 ([facility]) Sertraline 50 MG Oral Tablet [Zoloft] Zoloft 50 MG Zoloft 50 MG 02/12/2020 12:00:00 AM EDT 1.0 {tablet} suspended Zoloft 50 MG eCW1 ([facility]) Sertraline 50 MG Oral Tablet [Zoloft] Zoloft 50 MG Zoloft 50 MG 02/12/2020 12:00:00 AM EDT 1.0 {tablet} suspended Zoloft 50 MG eCW1 ([facility]) Sertraline 50 MG Oral Tablet [Zoloft] Zoloft 50 MG Zoloft 50 MG 02/12/2020 12:00:00 AM EDT 1.0 {tablet} suspended Zoloft 50 MG eCW1 ([facility]) Sertraline 50 MG Oral Tablet [Zoloft] Zoloft 50 MG Zoloft 50 MG 02/12/2020 12:00:00 AM EDT 1.0 {tablet} suspended Zoloft 50 MG eCW1 ([facility]) Sertraline 50 MG Oral Tablet [Zoloft] Zoloft 50 MG Zoloft 50 MG 02/12/2020 12:00:00 AM EDT 1.0 {tablet} active Zo loft 50 MG eCW1 ([facility]) Sertraline 50 MG Oral Tablet [Zoloft] Zoloft 50 MG Zoloft 50 MG 02/12/2020 12:00:00 AM EDT 1.0 {tablet} suspended Zoloft 50 MG eCW1 ([facility]) Sertraline 50 MG Oral Tablet [Zoloft] Zoloft 50 MG Zoloft 50 MG 02/12/2020 12:00:00 AM EDT 1.0 {tablet} suspended Zoloft 50 MG eCW1 ([facility]) Fluconazole 150 MG Oral Tablet [Diflucan] Diflucan 150 MG Di flucan 150 MG 11/23/2019 12:00:00 AM EST 1.0 {tablet} suspended Diflucan 150 MG eCW1 ([facility]) Fluconazole 150 MG Oral Tablet [Diflucan] Diflucan 150 MG Di flucan 150 MG 11/23/2019 12:00:00 AM EST 1.0 {tablet} suspended Diflucan 150 MG eCW1 ([facility]) Metronidazole 500 MG Oral Tablet Metronidazole 500 MG 2019 12:00:00 AM EST active 1 tablet eCW1 ([facility]) Fluconazole 150 MG Oral Tablet [Diflucan] Diflucan 150 MG Di flucan 150 MG 11/23/2019 12:00:00 AM EST 1.0 {tablet} suspended Diflucan 150 MG eCW1 ([facility]) Metronidazole 500 MG Oral Tablet Metronidazole 500 MG 2019 12:00:00 AM EST 1.0 {tablet} active Metronidazo le 500 MG eCW1 ([facility]) Fluconazole 150 MG Oral Tablet [Diflucan] Diflucan 150 MG Di flucan 150 MG 11/23/2019 12:00:00 AM EST suspended 1 tablet eCW1 ([facility]) Metronidazole 500 MG Oral Tablet Metronidazole 500 MG 2019 12:00:00 AM EST active 1 tablet eCW1 ([facility]) Fluconazole 150 MG Oral Tablet [Diflucan] Diflucan 150 MG Di flucan 150 MG 11/23/2019 12:00:00 AM EST active 1 tablet eCW1 ([facility]) Metronidazole 500 MG Oral Tablet Metronidazole 500 MG 2019 12:00:00 AM EST active 1 tablet eCW1 ([facility]) Metronidazole 500 MG Oral Tablet Metronidazole 500 MG 2019 12:00:00 AM EST 1.0 {tablet} suspended Metronid azole 500 MG eCW1 ([facility]) Fluconazole 150 MG Oral Tablet [Diflucan] Diflucan 150 MG Di flucan 150 MG 11/23/2019 12:00:00 AM EST 1.0 {tablet} suspended Diflucan 150 MG eCW1 ([facility]) Metronidazole 500 MG Oral Tablet Metronidazole 500 MG 2019 12:00:00 AM EST 1.0 {tablet} suspended Metronid azole 500 MG eCW1 ([facility]) Fluconazole 150 MG Oral Tablet [Diflucan] Diflucan 150 MG Di flucan 150 MG 11/23/2019 12:00:00 AM EST suspended 1 tablet eCW1 ([facility]) Metronidazole 500 MG Oral Tablet Metronidazole 500 MG 2019 12:00:00 AM EST active 1 tablet eCW1 ([facility]) Metronidazole 500 MG Oral Tablet Metronidazole 500 MG 2019 12:00:00 AM EST 1.0 {tablet} suspended Metronid azole 500 MG eCW1 ([facility]) Metronidazole 500 MG Oral Tablet Metronidazole 500 MG 2019 12:00:00 AM EST 1.0 {tablet} suspended Metronid azole 500 MG eCW1 ([facility]) Fluconazole 150 MG Oral Tablet [Diflucan] Diflucan 150 MG Di flucan 150 MG 11/23/2019 12:00:00 AM EST suspended 1 tablet eCW1 ([facility]) Fluconazole 150 MG Oral Tablet [Diflucan] Diflucan 150 MG Di flucan 150 MG 11/23/2019 12:00:00 AM EST 1.0 {tablet} suspended Diflucan 150 MG eCW1 ([facility]) Metronidazole 500 MG Oral Tablet Metronidazole 500 MG 2019 12:00:00 AM EST active 1 tablet eCW1 ([facility]) Metronidazole 500 MG Oral Tablet Metronidazole 500 MG 2019 12:00:00 AM EST active 1 tablet eCW1 ([facility]) Fluconazole 150 MG Oral Tablet [Diflucan] Diflucan 150 MG Di flucan 150 MG 11/23/2019 12:00:00 AM EST suspended 1 tablet eCW1 ([facility]) Metronidazole 500 MG Oral Tablet Metronidazole 500 MG 2019 12:00:00 AM EST 1.0 {tablet} suspended Metronid azole 500 MG eCW1 ([facility]) Fluconazole 150 MG Oral Tablet [Diflucan] Diflucan 150 MG Di flucan 150 MG 11/23/2019 12:00:00 AM EST suspended 1 tablet eCW1 ([facility]) Metronidazole 500 MG Oral Tablet Metronidazole 500 MG 2019 12:00:00 AM EST active 1 tablet eCW1 ([facility]) Fluconazole 150 MG Oral Tablet [Diflucan] Diflucan 150 MG Di flucan 150 MG 11/23/2019 12:00:00 AM EST suspended 1 tablet eCW1 ([facility]) Metronidazole 500 MG Oral Tablet Metronidazole 500 MG 2019 12:00:00 AM EST 1.0 {tablet} suspended Metronid azole 500 MG eCW1 ([facility]) Fluconazole 150 MG Oral Tablet [Diflucan] Diflucan 150 MG Di flucan 150 MG 11/23/2019 12:00:00 AM EST 1.0 {tablet} suspended Diflucan 150 MG eCW1 ([facility]) Metronidazole 500 MG Oral Tablet Metronidazole 500 MG 2019 12:00:00 AM EST active 1 tablet eCW1 ([facility]) Metronidazole 500 MG Oral Tablet Metronidazole 500 MG 2019 12:00:00 AM EST 1.0 {tablet} suspended Metronid azole 500 MG eCW1 ([facility]) Fluconazole 150 MG Oral Tablet [Diflucan] Diflucan 150 MG Di flucan 150 MG 11/23/2019 12:00:00 AM EST suspended 1 tablet eCW1 ([facility]) Fluconazole 150 MG Oral Tablet [Diflucan] Diflucan 150 MG Di flucan 150 MG 11/23/2019 12:00:00 AM EST 1.0 {tablet} suspended Diflucan 150 MG eCW1 ([facility]) Metronidazole 500 MG Oral Tablet Metronidazole 500 MG 2019 12:00:00 AM EST 1.0 {tablet} suspended Metronid azole 500 MG eCW1 ([facility]) Metronidazole 500 MG Oral Tablet Metronidazole 500 MG 2019 12:00:00 AM EST suspended 1 tablet eCW1 ([facility]) Fluconazole 150 MG Oral Tablet [Diflucan] Diflucan 150 MG Di flucan 150 MG 11/23/2019 12:00:00 AM EST 1.0 {tablet} suspended Diflucan 150 MG eCW1 ([facility]) Fluconazole 150 MG Oral Tablet [Diflucan] Diflucan 150 MG Di flucan 150 MG 11/23/2019 12:00:00 AM EST 1.0 {tablet} active Diflucan 150 MG eCW1 ([facility]) Metronidazole 500 MG Oral Tablet Metronidazole 500 MG 2019 12:00:00 AM EST active 1 tablet eCW1 ([facility]) Fluconazole 150 MG Oral Tablet [Diflucan] Diflucan 150 MG Di flucan 150 MG 11/23/2019 12:00:00 AM EST suspended 1 tablet eCW1 ([facility]) Fluconazole 150 MG Oral Tablet [Diflucan] Diflucan 150 MG Di flucan 150 MG 11/23/2019 12:00:00 AM EST suspended 1 tablet eCW1 ([facility]) Docusate Sodium 100 MG Oral Tablet Stool Softener 100 MG Sto ol Softener 100 MG 11/14/2019 12:00:00 AM EST active Stool Softener 100 MG eCW1 ([facility]) Sertraline 25 MG Oral Tablet [Zoloft] Zoloft 25 MG Zoloft 25 MG 11/14/2019 12:00:00 AM EST 1.0 {tablet} active Zo loft 25 MG eCW1 ([facility]) ferrous gluconate 324 MG Oral Tablet Ferrous Gluconate 324 (38 Fe) MG Ferrous Gluconate 324 (38 Fe) MG 11/14/2019 12:00:00 AM EST active 1 tablet with water or juice between meals eCW1 ([facility]) ferrous gluconate 324 MG Oral Tablet Ferrous Gluconate 324 (38 Fe) MG Ferrous Gluconate 324 (38 Fe) MG 11/14/2019 12:00:00 AM EST suspended Ferrous Gluconate 324 (38 Fe) MG eCW1 ([facility]) Docusate Sodium 100 MG Oral Tablet Stool Softener 100 MG Sto ol Softener 100 MG 11/14/2019 12:00:00 AM EST active 1 tablet as needed for constipation eCW1 ([facility]) ferrous gluconate 324 MG Oral Tablet Ferrous Gluconate 324 (38 Fe) MG Ferrous Gluconate 324 (38 Fe) MG 11/14/2019 12:00:00 AM EST active 1 tablet with water or juice between meals eCW1 ([facility]) Docusate Sodium 100 MG Oral Tablet Stool Softener 100 MG Sto ol Softener 100 MG 11/14/2019 12:00:00 AM EST active 1 tablet as needed for constipation eCW1 ([facility]) Sertraline 25 MG Oral Tablet [Zoloft] Zoloft 25 MG Zoloft 25 MG 11/14/2019 12:00:00 AM EST 1.0 {tablet} suspended Zoloft 25 MG eCW1 ([facility]) Sertraline 25 MG Oral Tablet [Zoloft] Zoloft 25 MG Zoloft 25 MG 11/14/2019 12:00:00 AM EST active 1 tablet eCW1 ([facility]) ferrous gluconate 324 MG Oral Tablet Ferrous Gluconate 324 (38 Fe) MG Ferrous Gluconate 324 (38 Fe) MG 11/14/2019 12:00:00 AM EST active 1 tablet with water or juice between meals eCW1 ([facility]) Docusate Sodium 100 MG Oral Tablet Stool Softener 100 MG Sto ol Softener 100 MG 11/14/2019 12:00:00 AM EST suspended Stool Softener 100 MG eCW1 ([facility]) Sertraline 25 MG Oral Tablet [Zoloft] Zoloft 25 MG Zoloft 25 MG 11/14/2019 12:00:00 AM EST active 1 tablet eCW1 ([facility]) Docusate Sodium 100 MG Oral Tablet Stool Softener 100 MG Sto ol Softener 100 MG 11/14/2019 12:00:00 AM EST active 1 tablet as needed for constipation eCW1 ([facility]) Sertraline 25 MG Oral Tablet [Zoloft] Zoloft 25 MG Zoloft 25 MG 11/14/2019 12:00:00 AM EST active 1 tablet eCW1 ([facility]) Sertraline 25 MG Oral Tablet [Zoloft] Zoloft 25 MG Zoloft 25 MG 11/14/2019 12:00:00 AM EST 1.0 {tablet} suspended Zoloft 25 MG eCW1 ([facility]) ferrous gluconate 324 MG Oral Tablet Ferrous Gluconate 324 (38 Fe) MG Ferrous Gluconate 324 (38 Fe) MG 11/14/2019 12:00:00 AM EST suspended Ferrous Gluconate 324 (38 Fe) MG eCW1 ([facility]) Sertraline 25 MG Oral Tablet [Zoloft] Zoloft 25 MG Zoloft 25 MG 11/14/2019 12:00:00 AM EST 1.0 {tablet} suspended Zoloft 25 MG eCW1 ([facility]) Sertraline 25 MG Oral Tablet [Zoloft] Zoloft 25 MG Zoloft 25 MG 11/14/2019 12:00:00 AM EST active 1 tablet eCW1 ([facility]) ferrous gluconate 324 MG Oral Tablet Ferrous Gluconate 324 (38 Fe) MG Ferrous Gluconate 324 (38 Fe) MG 11/14/2019 12:00:00 AM EST active 1 tablet with water or juice between meals eCW1 ([facility]) Docusate Sodium 100 MG Oral Tablet Stool Softener 100 MG Sto ol Softener 100 MG 11/14/2019 12:00:00 AM EST suspended Stool Softener 100 MG eCW1 ([facility]) ferrous gluconate 324 MG Oral Tablet Ferrous Gluconate 324 (38 Fe) MG Ferrous Gluconate 324 (38 Fe) MG 11/14/2019 12:00:00 AM EST active 1 tablet with water or juice between meals eCW1 ([facility]) ferrous gluconate 324 MG Oral Tablet Ferrous Gluconate 324 (38 Fe) MG Ferrous Gluconate 324 (38 Fe) MG 11/14/2019 12:00:00 AM EST active 1 tablet with water or juice between meals eCW1 ([facility]) Docusate Sodium 100 MG Oral Tablet Stool Softener 100 MG Sto ol Softener 100 MG 11/14/2019 12:00:00 AM EST suspended Stool Softener 100 MG eCW1 ([facility]) Sertraline 25 MG Oral Tablet [Zoloft] Zoloft 25 MG Zoloft 25 MG 11/14/2019 12:00:00 AM EST 1.0 {tablet} suspended Zoloft 25 MG eCW1 ([facility]) Sertraline 25 MG Oral Tablet [Zoloft] Zoloft 25 MG Zoloft 25 MG 11/14/2019 12:00:00 AM EST 1.0 {tablet} suspended Zoloft 25 MG eCW1 ([facility]) ferrous gluconate 324 MG Oral Tablet Ferrous Gluconate 324 (38 Fe) MG Ferrous Gluconate 324 (38 Fe) MG 11/14/2019 12:00:00 AM EST suspended Ferrous Gluconate 324 (38 Fe) MG eCW1 ([facility]) Docusate Sodium 100 MG Oral Tablet Stool Softener 100 MG Sto ol Softener 100 MG 11/14/2019 12:00:00 AM EST suspended Stool Softener 100 MG eCW1 ([facility]) Docusate Sodium 100 MG Oral Tablet Stool Softener 100 MG Sto ol Softener 100 MG 11/14/2019 12:00:00 AM EST suspended Stool Softener 100 MG eCW1 ([facility]) Sertraline 25 MG Oral Tablet [Zoloft] Zoloft 25 MG Zoloft 25 MG 11/14/2019 12:00:00 AM EST active 1 tablet eCW1 ([facility]) ferrous gluconate 324 MG Oral Tablet Ferrous Gluconate 324 (38 Fe) MG Ferrous Gluconate 324 (38 Fe) MG 11/14/2019 12:00:00 AM EST active Ferrous Gluconate 324 (38 Fe) MG eCW1 ([facility]) Docusate Sodium 100 MG Oral Tablet Stool Softener 100 MG Sto ol Softener 100 MG 11/14/2019 12:00:00 AM EST active 1 tablet as needed for constipation eCW1 ([facility]) Docusate Sodium 100 MG Oral Tablet Stool Softener 100 MG Sto ol Softener 100 MG 11/14/2019 12:00:00 AM EST active 1 tablet as needed for constipation eCW1 ([facility]) Docusate Sodium 100 MG Oral Tablet Stool Softener 100 MG Sto ol Softener 100 MG 11/14/2019 12:00:00 AM EST active 1 tablet as needed for constipation eCW1 ([facility]) ferrous gluconate 324 MG Oral Tablet Ferrous Gluconate 324 (38 Fe) MG Ferrous Gluconate 324 (38 Fe) MG 11/14/2019 12:00:00 AM EST active Ferrous Gluconate 324 (38 Fe) MG eCW1 ([facility]) Sertraline 25 MG Oral Tablet [Zoloft] Zoloft 25 MG Zoloft 25 MG 11/14/2019 12:00:00 AM EST 1.0 {tablet} active Zo loft 25 MG eCW1 ([facility]) Docusate Sodium 100 MG Oral Tablet Stool Softener 100 MG Sto ol Softener 100 MG 11/14/2019 12:00:00 AM EST suspended Stool Softener 100 MG eCW1 ([facility]) ferrous gluconate 324 MG Oral Tablet Ferrous Gluconate 324 (38 Fe) MG Ferrous Gluconate 324 (38 Fe) MG 11/14/2019 12:00:00 AM EST suspended Ferrous Gluconate 324 (38 Fe) MG eCW1 ([facility]) ferrous gluconate 324 MG Oral Tablet Ferrous Gluconate 324 (38 Fe) MG Ferrous Gluconate 324 (38 Fe) MG 11/14/2019 12:00:00 AM EST suspended Ferrous Gluconate 324 (38 Fe) MG eCW1 ([facility]) Docusate Sodium 100 MG Oral Tablet Stool Softener 100 MG Sto ol Softener 100 MG 11/14/2019 12:00:00 AM EST suspended Stool Softener 100 MG eCW1 ([facility]) ferrous gluconate 324 MG Oral Tablet Ferrous Gluconate 324 (38 Fe) MG Ferrous Gluconate 324 (38 Fe) MG 11/14/2019 12:00:00 AM EST active 1 tablet with water or juice between meals eCW1 ([facility]) Sertraline 25 MG Oral Tablet [Zoloft] Zoloft 25 MG Zoloft 25 MG 11/14/2019 12:00:00 AM EST 1.0 {tablet} suspended Zoloft 25 MG eCW1 ([facility]) Docusate Sodium 100 MG Oral Tablet Stool Softener 100 MG Sto ol Softener 100 MG 11/14/2019 12:00:00 AM EST active 1 tablet as needed for constipation eCW1 ([facility]) Docusate Sodium 100 MG Oral Tablet Stool Softener 100 MG Sto ol Softener 100 MG 11/14/2019 12:00:00 AM EST active 1 tablet as needed for constipation eCW1 ([facility]) Sertraline 25 MG Oral Tablet [Zoloft] Zoloft 25 MG Zoloft 25 MG 11/14/2019 12:00:00 AM EST active 1 tablet eCW1 ([facility]) ferrous gluconate 324 MG Oral Tablet Ferrous Gluconate 324 (38 Fe) MG Ferrous Gluconate 324 (38 Fe) MG 11/14/2019 12:00:00 AM EST active 1 tablet with water or juice between meals eCW1 ([facility]) Sertraline 25 MG Oral Tablet [Zoloft] Zoloft 25 MG Zoloft 25 MG 11/14/2019 12:00:00 AM EST active 1 tablet eCW1 ([facility]) Sertraline 25 MG Oral Tablet [Zoloft] Zoloft 25 MG Zoloft 25 MG 11/14/2019 12:00:00 AM EST active 1 tablet eCW1 ([facility]) ferrous gluconate 324 MG Oral Tablet Ferrous Gluconate 324 (38 Fe) MG Ferrous Gluconate 324 (38 Fe) MG 11/14/2019 12:00:00 AM EST active 1 tablet with water or juice between meals eCW1 ([facility]) ferrous gluconate 324 MG Oral Tablet Ferrous Gluconate 324 (38 Fe) MG Ferrous Gluconate 324 (38 Fe) MG 11/14/2019 12:00:00 AM EST suspended Ferrous Gluconate 324 (38 Fe) MG eCW1 ([facility]) Sertraline 25 MG Oral Tablet [Zoloft] Zoloft 25 MG Zoloft 25 MG 11/14/2019 12:00:00 AM EST active 1 tablet eCW1 ([facility]) ferrous gluconate 324 MG Oral Tablet Ferrous Gluconate 324 (38 Fe) MG Ferrous Gluconate 324 (38 Fe) MG 11/14/2019 12:00:00 AM EST active 1 tablet with water or juice between meals eCW1 ([facility]) Docusate Sodium 100 MG Oral Tablet Stool Softener 100 MG Sto ol Softener 100 MG 11/14/2019 12:00:00 AM EST active 1 tablet as needed for constipation eCW1 ([facility]) Docusate Sodium 100 MG Oral Tablet Stool Softener 100 MG Sto ol Softener 100 MG 11/14/2019 12:00:00 AM EST active Stool Softener 100 MG eCW1 ([facility]) Docusate Sodium 100 MG Oral Tablet Stool Softener 100 MG Sto ol Softener 100 MG 11/14/2019 12:00:00 AM EST active 1 tablet as needed for constipation eCW1 ([facility]) Sertraline 25 MG Oral Tablet [Zoloft] Zoloft 25 MG Zoloft 25 MG 11/14/2019 12:00:00 AM EST active 1 tablet eCW1 ([facility]) ferrous gluconate 324 MG Oral Tablet Ferrous Gluconate 324 (38 Fe) MG Ferrous Gluconate 324 (38 Fe) MG 11/14/2019 12:00:00 AM EST suspended Ferrous Gluconate 324 (38 Fe) MG eCW1 ([facility]) Sertraline 25 MG Oral Tablet [Zoloft] Zoloft 25 MG Zoloft 25 MG 11/14/2019 12:00:00 AM EST 1.0 {tablet} suspended Zoloft 25 MG eCW1 ([facility]) Insurance Providers Payer name Policy type / Coverage type Policy ID Covered libertarian ID Covered libertarian's relationship to shaver Policy Shaver Plan Information ISABELLE [id number] SP [id number] [place] [id number] 18 [id number] [place] [id number] S [id number] MEDICAID [id number] SP [id number] BLUE CROSS E[place]IRE [place] [id number] SELF [id number] [facility] BLUE CROSS [id number] SELF [id number] [facility] [employer] (HMO) [facility] EMPIRE PLAN(REFERRED SPEC) [id number] SELF [id number] SELF PAY UNAVAILABLE SELF UNAVAILA BLE BLUE CROSS [id number] MOTHER [id number] Problems, Conditions, and Diagnoses Code Display Name Description Problem Type Effective Dates Data Source(s) Z34.80 care Supervision of other normal P shervik 10/31/2020 12:00:00 AM EST eCW1 ([facility]) G43.009 [id number] Migraine without aur a and without status migrainosus, not intractable Problem 04/08/2020 12:00:00 AM EDT eCW1 ([facility]) F33.1 [id number] Moderate episode of recurrent major depre ssive disorder Problem 04/08/2020 12:00:00 AM EDT eCW1 ([facility]) O16.3 [id number] Unspecified maternal hypertension, third trimester Problem 01/16/2020 12:00:00 AM EDT eCW1 ([facility]) O16.3 [id number] Unspecified maternal hypertension, third trimester Problem 01/16/2020 12:00:00 AM EDT eCW1 ([facility]) F32.9 [id number] Major depressive disorder, single episode , unspecified Problem 11/14/2019 12:00:00 AM EST eCW1 ([facility]) O99.013 [id number] Anemia affecting in third trime ster Problem 11/14/2019 12:00:00 AM EST eCW1 ([facility]) F32.9 [id number] Major depressive disorder, single episode , unspecified Problem 11/14/2019 12:00:00 AM EST eCW1 ([facility]) O99.013 [id number] Anemia affecting in third trime ster Problem 11/14/2019 12:00:00 AM EST eCW1 ([facility]) J029 Acute pharyngitis, unspecified Acute pharyngitis, unsp ecified Diagnosis 06/12/2020 03:00:00 PM EDT [facility] Surgeries/Procedures Procedure Description Date Indications Data Source(s) CARE VISIT 02/13/2020 12:00:00 AM EDT eCW1 ([facility]) OB Visit 01/23/2020 12:00:00 AM EDT e CW1 ([facility]) TDAP 0.5mL ([facility]) 11/28/2019 12:00:00 AM EST eCW1 ([facility]) IMMUNIZATION ADMIN 11/28/2019 12:00:00 AM EST eCW1 ([facility]) Results ID Date Data Source HCG, SERUM QUANTITATIVE 11/19/2020 12:00:00 AM EST eCW1 ([facility]) Name Value Range Interpretation Code Description Data Trini rce(s) Supporting Document(s) 89703 HCG, SERUM QUANTITATIVE eCW1 ( [facility]) ID Date Data Source [id number] 06/15/2020 11:14:00 AM EDT [facility] Name Value Range Interpretation Code Description Data Trini rce(s) Supporting Document(s) CULTURE UPPER RESPIRATORY [facility] _CULTURE UPPER RESPIRATORY_$$[id number]$$[id number]$$[id number]$$[id number]$$[id number]$$[id number]$$[id number] DATE/TIME: 06/15/2020 11:06Culture: CULTURE UPPER RESPIRATORY Status: FinalUpper Respiratory Culture: [id number] respiratory floraP1 Test performed by: YunierCobrooks Dudley CLIA #: [id number] [address] [place] [address] [id number] [facility] [id number] Director : Chu Kan MD 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 ID Date Data Source [id number] 06/14/2020 12:37:00 PM EDT [facility] Name Value Range Interpretation Code Description Data Trini rce(s) Supporting Document(s) SARS-CoV-2, SIMONE Not Detected Not Detected [facility] This test was developed and its performa nce characteristics determinedby [facility]. This test has not been FDA [...] URINE 01/16/2020 12:00:00 AM EDT eCW1 ( [facility]) Name Value Range Interpretation Code Description Data Trini rce(s) Supporting Document(s) 13.7 0.0-12.0 TOTAL PROTEIN,RANDOM URIN E eCW1 ([facility]) ID Date Data Source CREATININE,RANDOM URINE 01/16/2020 12:00:00 AM EDT eCW1 ([facility]) Name Value Range Interpretation Code Description Data Trini rce(s) Supporting Document(s) 77.0 CREATININE,RANDOM URINE eCW1 ( [facility]) ID Date Data Source Pre Eclampsia Profile 01/16/2020 12:00:00 AM EDT eCW1 ([facility]) Name Value Range Interpretation Code Description Data Trini rce(s) Supporting Document(s) > 60.0 >60 GLOMERULAR FILTRATION RATE eCW 1 ([facility]) 16 12-78 ALT/SGPT eCW1 ([facility]) 17 7-37 AST/SGOT eCW1 ([facility]) 0.63 0.55-1.30 CREATININE FOR GFR eCW1 ([facility]) 0.4 0.2-1.0 BILIRUBIN,TOTAL eCW1 ([facility]) 179 84-246 LDH LACTATE DEHYDROGENASE eCW1 ([facility]) 4.3 2.6-6.0 URIC ACID eCW1 ([facility]) ID Date Data Source CBC - Complete Blood Count 01/16/2020 12:00:00 AM EDT eCW1 ( [facility]) Name Value Range Interpretation Code Description Data Trini rce(s) Supporting Document(s) 8.4 4.0-10.0 WHITE BLOOD COUNT eCW1 ([facility]) 3.39 4.00-5.40 RED BLOOD COUNT eCW1 ([facility]) 11.3 12.0-15.5 HEMOGLOBIN eCW1 ([facility]) 102.1 80.0-96.0 MEAN CORPUSCULAR VOLUME e CW1 ([facility]) 34.6 36.0-47.0 HEMATOCRIT eCW1 ([facility]) 224 150-450 PLATELET COUNT, AUTOMATED eCW1 ([facility]) 33.3 27.0-33.0 MEAN CORPUSCULAR HEMOGLOB IN eCW1 ([facility]) 32.7 32.0-36.5 MEAN CORPUSCULAR HGB CONC eCW1 ([facility]) 14.9 11.5-14.5 RED CELL DISTRIBUTION WID TH eCW1 ([facility]) ID Date Data Source GLUCOSE CHALLENGE TEST 1 HR 10/30/2019 12:00:00 AM EST eCW1 ([facility]) Name Value Range Interpretation Code Description Data Trini rce(s) Supporting Document(s) 106 LESS THAN 140 GLUCOSE CHALLENGE TEST 1 HOUR eCW1 ([facility]) ID Date Data Source CBC 10/30/2019 12:00:00 AM EST eCW1 ([facility]) Name Value Range Interpretation Code Description Data Trini rce(s) Supporting Document(s) 9.9 12.0-15.5 HEMOGLOBIN eCW1 ([facility]) 10.0 4.0-10.0 WHITE BLOOD COUNT eCW1 ([facility]) 3.05 4.00-5.40 RED BLOOD COUNT eCW1 ([facility]) 30.7 36.0-47.0 HEMATOCRIT eCW1 ([facility]) 100.7 80.0-96.0 MEAN CORPUSCULAR VOLUME e CW1 ([facility]) 32.5 27.0-33.0 MEAN CORPUSCULAR HEMOGLOB IN eCW1 ([facility]) 32.2 32.0-36.5 MEAN CORPUSCULAR HGB CONC eCW1 ([facility]) 250 150-450 PLATELET COUNT, AUTOMATED eCW1 ([facility]) 12.9 11.5-14.5 RED CELL DISTRIBUTION WID TH eCW1 ([facility]) ID Date Data Source Type and Screen (D Rh Antibody Screen) 10/30/2019 12:00:00 A M EST eCW1 ([facility]) Name Value Range Interpretation Code Description Data Trini rce(s) Supporting Document(s) NEGATIVE AB SCREEN (INDIRECT COOMB S)VIS eCW1 ([facility]) O POSITIVE BLOOD TYPE eCW1 ([facility]) ID Date Data Source VITAMIN D 1,25 DIHYDROXY 10/11/2019 12:00:00 AM EST eCW1 ([facility]) Name Value Range Interpretation Code Description Data Trini rce(s) Supporting Document(s) 77.1 19.9-79.3 VITAMIN D 1,25 DIHYDROXY eCW1 ([facility]) ID Date Data Source FREE T4 & TSH PANEL 10/11/2019 12:00:00 AM EST eCW1 ([facility]) Name Value Range Interpretation Code Description Data Trini rce(s) Supporting Document(s) 1.070 0.358-3.740 THYROID STIMULATING HORM ONE eCW1 ([facility]) 0.83 0.76-1.46 FREE T4 eCW1 ([facility]) Procedure Social History Code Duration Value Status Description Data Source(s ) Smoking 11/19/2020 12:00:00 AM EST Never Smoker completed Never S moker eCW1 ([facility]) Smoking 11/19/2020 12:00:00 AM EST Never Smoker completed Never S moker eCW1 ([facility]) Smoking 11/15/2020 12:00:00 AM EST Never Smoker completed Never S moker eCW1 ([facility]) Smoking 11/05/2020 12:00:00 AM EST Never Smoker completed Never S moker eCW1 ([facility]) Smoking 11/05/2020 12:00:00 AM EST Never Smoker completed Never S moker eCW1 ([facility]) Smoking 07/20/2020 12:00:00 AM EDT Never Smoker completed Never S moker eCW1 ([facility]) Smoking 07/20/2020 12:00:00 AM EDT Never Smoker completed Never S moker eCW1 ([facility]) Smoking 04/08/2020 12:00:00 AM EDT Never Smoker completed Never S moker eCW1 ([facility]) Smoking 02/13/2020 12:00:00 AM EDT Never Smoker completed Never S moker eCW1 ([facility]) Vital Signs ID Date Data Source UNK Name Value Range Interpretation Code Description Data Source(s) Diastolic blood pressure 70 mm[Hg] 70 mm[Hg] eCW1 ([facility]) Systolic blood pressure 120 mm[Hg] 120 mm[Hg] e CW1 ([facility]) Body mass index (BMI) [Ratio] 29.29 kg/m2 29.29 kg/m2 eCW1 ([facility]) Body height 67 [in_i] 67 [in_i] eCW1 ([facility]) Body weight 187.0 [lb_av] 187.0 [lb_av] eCW1 ([facility]) Diastolic blood pressure 82 mm[Hg] 82 mm[Hg] eCW1 ([facility]) Systolic blood pressure 138 mm[Hg] 138 mm[Hg] e CW1 ([facility]) Body mass index (BMI) [Ratio] 29.194 kg/m2 29.1 94 kg/m2 eCW1 ([facility]) Body height 67 [in_i] 67 [in_i] eCW1 ([facility]) Body weight 186.4 [lb_av] 186.4 [lb_av] eCW1 ([facility]) Diastolic blood pressure 68 mm[Hg] 68 mm[Hg] eCW1 ([facility]) Systolic blood pressure 114 mm[Hg] 114 mm[Hg] e CW1 ([facility]) Body mass index (BMI) [Ratio] 32.17 kg/m2 32.17 kg/m2 eCW1 ([facility]) Body height 67 [in_us] 67 [in_us] eCW1 ([facility]) Body weight Measured 205.4 [lb_av] 205.4 [lb_av ] eCW1 ([facility]) Diastolic blood pressure 74 mm[Hg] 74 mm[Hg] eCW1 ([facility]) Systolic blood pressure 122 mm[Hg] 122 mm[Hg] e CW1 ([facility]) Body mass index (BMI) [Ratio] 36.775 kg/m2 36.7 75 kg/m2 eCW1 ([facility]) Body height 67 [in_us] 67 [in_us] eCW1 ([facility]) Body weight Measured 234.8 [lb_av] 234.8 [lb_av ] eCW1 ([facility]) Diastolic blood pressure 72 mm[Hg] 72 mm[Hg] eCW1 ([facility]) Systolic blood pressure 130 mm[Hg] 130 mm[Hg] e CW1 ([facility]) Body mass index (BMI) [Ratio] 36.211 kg/m2 36.2 11 kg/m2 eCW1 ([facility]) Body height 67 [in_us] 67 [in_us] eCW1 ([facility]) Body weight Measured 231.2 [lb_av] 231.2 [lb_av ] eCW1 ([facility]) Diastolic blood pressure 84 mm[Hg] 84 mm[Hg] eCW1 ([facility]) Systolic blood pressure 150 mm[Hg] 150 mm[Hg] e CW1 ([facility]) Body mass index (BMI) [Ratio] 36.086 kg/m2 36.0 86 kg/m2 eCW1 ([facility]) Body height 67 [in_us] 67 [in_us] eCW1 ([facility]) Body weight Measured 230.4 [lb_av] 230.4 [lb_av ] eCW1 ([facility]) Diastolic blood pressure 70 mm[Hg] 70 mm[Hg] eCW1 ([facility]) Systolic blood pressure 138 mm[Hg] 138 mm[Hg] e CW1 ([facility]) Body mass index (BMI) [Ratio] 35.679 kg/m2 35.6 79 kg/m2 eCW1 ([facility]) Body height 67 [in_us] 67 [in_us] eCW1 ([facility]) Body weight Measured 227.8 [lb_av] 227.8 [lb_av ] eCW1 ([facility]) Diastolic blood pressure 78 mm[Hg] 78 mm[Hg] eCW1 ([facility]) Systolic blood pressure 120 mm[Hg] 120 mm[Hg] e CW1 ([facility]) Body mass index (BMI) [Ratio] 35.428 kg/m2 35.4 28 kg/m2 eCW1 ([facility]) Body height 67 [in_us] 67 [in_us] eCW1 ([facility]) Body weight Measured 226.2 [lb_av] 226.2 [lb_av ] eCW1 ([facility]) Diastolic blood pressure 80 mm[Hg] 80 mm[Hg] eCW1 ([facility]) Systolic blood pressure 122 mm[Hg] 122 mm[Hg] e CW1 ([facility]) Body mass index (BMI) [Ratio] 35.365 kg/m2 35.3 65 kg/m2 eCW1 ([facility]) Body height 67 [in_us] 67 [in_us] eCW1 ([facility]) Body weight Measured 225.8 [lb_av] 225.8 [lb_av ] eCW1 ([facility]) Diastolic blood pressure 74 mm[Hg] 74 mm[Hg] eCW1 ([facility]) Systolic blood pressure 130 mm[Hg] 130 mm[Hg] e CW1 ([facility]) Body mass index (BMI) [Ratio] 34.864 kg/m2 34.8 64 kg/m2 eCW1 ([facility]) Body height 67 [in_us] 67 [in_us] eCW1 ([facility]) Body weight Measured 222.6 [lb_av] 222.6 [lb_av ] eCW1 ([facility]) Diastolic blood pressure 70 mm[Hg] 70 mm[Hg] eCW1 ([facility]) Systolic blood pressure 124 mm[Hg] 124 mm[Hg] e CW1 ([facility]) Body mass index (BMI) [Ratio] 34.426 kg/m2 34.4 26 kg/m2 eCW1 ([facility]) Body height 67 [in_us] 67 [in_us] eCW1 ([facility]) Body weight Measured 219.8 [lb_av] 219.8 [lb_av ] eCW1 ([facility]) Diastolic blood pressure 72 mm[Hg] 72 mm[Hg] eCW1 ([facility]) Systolic blood pressure 120 mm[Hg] 120 mm[Hg] e CW1 ([facility]) Body mass index (BMI) [Ratio] 33.956 kg/m2 33.9 56 kg/m2 eCW1 ([facility]) Body height 67 [in_us] 67 [in_us] eCW1 ([facility]) Body weight Measured 216.8 [lb_av] 216.8 [lb_av ] eCW1 ([facility]) Diastolic blood pressure 62 mm[Hg] 62 mm[Hg] eCW1 ([facility]) Systolic blood pressure 112 mm[Hg] 112 mm[Hg] e CW1 ([facility]) Body mass index (BMI) [Ratio] 33.235 kg/m2 33.2 35 kg/m2 eCW1 ([facility]) Body height 67 [in_us] 67 [in_us] eCW1 ([facility]) Body weight Measured 212.2 [lb_av] 212.2 [lb_av ] eCW1 ([facility]) Patient Treatment Plan of Care Planned Activity Planned Date Details Description Data Source (s) topiramate 25 MG Oral Tablet [Topamax] 04/22/2020 12:00:00 AM EDT eCW1 ([facility]) topiramate 25 MG Oral Tablet [Topamax] 04/22/2020 12:00:00 AM EDT eCW1 ([facility]) topiramate 25 MG Oral Tablet [Topamax] 04/22/2020 12:00:00 AM EDT eCW1 ([facility]) 24 HR venlafaxine 37.5 MG Extended Release Oral Capsul e [Effexor] 04/08/2020 12:00:00 AM EDT eCW1 ([facility]) topiramate 25 MG Oral Tablet [Topamax] 04/08/2020 12:00:00 AM EDT eCW1 ([facility]) 24 HR venlafaxine 37.5 MG Extended Release Oral Capsul e [Effexor] 04/08/2020 12:00:00 AM EDT eCW1 ([facility]) topiramate 25 MG Oral Tablet [Topamax] 04/08/2020 12:00:00 AM EDT eCW1 ([facility]) 24 HR venlafaxine 37.5 MG Extended Release Oral Capsul e [Effexor] 04/08/2020 12:00:00 AM EDT eCW1 ([facility]) topiramate 25 MG Oral Tablet [Topamax] 04/08/2020 12:00:00 AM EDT eCW1 ([facility]) 24 HR venlafaxine 37.5 MG Extended Release Oral Capsul e 03/05/2020 12:00:00 AM EDT eCW1 ([facility]) Sertraline 100 MG Oral Tablet [Zoloft] 02/13/2020 12:00:00 AM EDT eCW1 ([facility]) Sertraline 100 MG Oral Tablet [Zoloft] 02/13/2020 12:00:00 AM EDT eCW1 ([facility]) Sertraline 50 MG Oral Tablet [Zoloft] 02/12/2020 12:00:00 AM EDT [email or web address] ([facility]) Fluconazole 150 MG Oral Tablet [Diflucan] 11/23/2019 12:00:00 AM ES T eCW1 ([facility]) Metronidazole 500 MG Oral Tablet 11/23/2019 12:00:00 AM EST eCW1 ([facility]) Docusate Sodium 100 MG Oral Tablet 11/14/2019 12:00:00 AM EST eCW1 ([facility]) ferrous gluconate 324 MG Oral Tablet 11/14/2019 12:00:00 AM EST eCW1 ([facility]) Sertraline 25 MG Oral Tablet [Zoloft] 11/14/2019 12:00:00 AM EST eCW1 ([facility])
[2020-12-06 18:06] LABS: BLOOD UREA NITROGEN 10 MG/DL (7-18); CALCIUM LEVEL 8.6 MG/DL (8.5-10.1); CARBON DIOXIDE LEVEL 25 MEQ/L (21-32); CHLORIDE LEVEL 107 MEQ/L (98-107); CREATININE FOR GFR 0.73 MG/DL (0.55-1.30); GLOMERULAR FILTRATION RATE > 60.0 (>60); GLUCOSE, FASTING 95 MG/DL (70-100); HCG, SERUM QUANTITATIVE 4925 MIU/ML; POTASSIUM SERUM 4.1 MEQ/L (3.5-5.1); SODIUM LEVEL 140 MEQ/L (136-145)
[2020-12-06 18:14] LABS: BILIRUBIN, URINE MANUAL NEGATIVE (NEGATIVE); GLUCOSE, URINE (UA) MANUAL NEGATIVE (NEGATIVE); KETONE, URINE MANUAL NEGATIVE (NEGATIVE); UROBILINOGEN, URINE MANUAL NORMAL (NORMAL)
[2020-12-06 18:18] LABS: BACTERIA, URINE NONE SEEN; HYALINE CAST, URINE NONE SEEN /lpf (0-1); MUCUS, URINE SMALL AMOUNT (NEGATIVE); RBC, URINE TNTC /hpf (0-3); SQUAMOUS EPITHELIAL CELL URINE SMALL AMOUNT /hpf (SMALL AMT)
--- NOTE | 2020-12-06 18:39 | REPVR ---
PROCEDURE INFORMATION: Exam: US First Trimester, Transabdominal Exam date and time: 12/06/2020 6:19 PM Age: 30 years old Clinical indication: Pain; Other: Vag bleeding post ab pill x 8 days; Gestational age or lmp: 6wks; ; Additional info: Heavy vag bleeding, missed ab, misoprostal 8 days ago TECHNIQUE: Imaging protocol: Real-time transabdominal obstetrical ultrasound of the maternal pelvis and a first trimester , less than 14 weeks 0 days, with image documentation. COMPARISON: No relevant prior studies available. FINDINGS: Gestation: No evidence of a gestational sac. No evidence of a pole. Embryonic/ heart rate: Not applicable BIOMETRY: Gestational age (AUA): 12 weeks 6 days based on LMP. MATERNAL: Uterus: Uterus measures 11.5 x 4.9 x 7.2 cm. Complex appearance of the endometrial echo complex measuring 2.5 cm maximally. Cervix: Unremarkable. Right adnexa: Unremarkable. Left adnexa: Unremarkable. Intraperitoneal space: No intraperitoneal free fluid. IMPRESSION: Abnormal appearance of the endometrial cavity which is widened with a complex echotexture consistent with probable hemorrhage. Absence of a gestational sac is consistent with early loss. Retained products of conception not excluded. Electronically signed by: Carl Middleton On 12/06/2020 18:39:43 PM
--- OUTSIDE RECORDS SUMMARY | 2020-12-06 20:38 | CCD ---
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 If you continue you may have access to information: Regarding HIV / AIDS; Provided by facilities licensed or operated by the [facility] Office of Mental Health; or Provided by the [facility] Office for People With Developmental Disabilities. If such information is present, then the following [facility] mandated warning applies: This information has [...] law may result in a fine or chcf sentence or both. A general authorization for the release of medical or other information is NOT sufficient authorization for further disc losure. Family History Family Member Name Family Member Gender Family Member Status Date o f Status Description Data Source(s) Unknown Female Problem MEDENT ([facility]) Encounters Encounter Providers Location Date Indications Data Source(s ) [place] [address] [facility] [address] 11/19/2020 12:00:00 AM EST eCW1 ([facility]) [place] [address] [facility] [place] [address] 11/19/2020 12:00:00 AM EST eCW1 ([facility]) Unknown [address] [facility] [place] [address] 11/12/2020 12:00:00 AM EST eCW1 ([facility]) Unknown [address] [facility] [place] [address] 11/09/2020 12:00:00 AM EST eCW1 ([facility]) ([facility]) [facility] Est OB [address] [place] [address] 11/04/2020 12:00:00 AM EST eCW1 ([facility]) [place] [address] [facility] [address] 08/31/2020 12:00:00 AM EST [facility] [place] [address] [facility] [address] 08/24/2020 12:00:00 AM EST [facility]CW1 [facility] [place] [address] [facility] [address] 07/17/2020 12:00:00 AM EDT eCW1 ([facility]) Outpatient Attender: Armida BRAR 0 03:00:00 PM EDT - 06/12/2020 03:00:00 PM EDT [facility] Outpatient Attender: Armida BRAR Family Practice 06/12/2020 03:00:00 PM EDT MEDENT ([facility]) [facility] [address] [place] [address] 03/26/2020 12:00:00 AM EDT eCW1 ([facility]) [place] [address] [facility] [address] 03/05/2020 12:00:00 AM EDT eCW1 ([facility]) [facility] [address] [place] [address] 02/13/2020 12:00:00 AM EDT eCW1 ([facility]) [facility] [address] [place] [address] 02/11/2020 12:00:00 AM EDT eCW1 ([facility]) [facility] [address] [place] [address] 01/23/2020 12:00:00 AM EDT eCW1 ([facility]) [facility] [address] [place] [address] 01/17/2020 12:00:00 AM EDT eCW1 ([facility]) [facility] [address] [place] [address] 01/16/2020 12:00:00 AM EDT eCW1 ([facility]) [facility] [address] [place] [address] 01/09/2020 12:00:00 AM EDT eCW1 ([facility]) [facility] [address] [place] [address] 01/02/2020 12:00:00 AM EDT eCW1 ([facility]) [facility] [address] [place] [address] 12/26/2019 12:00:00 AM EDT eCW1 ([facility]) [facility] [address] [place] [address] 12/12/2019 12:00:00 AM EST eCW1 ([facility]) [facility] [address] [place] [address] 11/28/2019 12:00:00 AM EST eCW1 ([facility]) [facility] [address] [place] [address] 11/23/2019 12:00:00 AM EST eCW1 ([facility]) [facility] [address] [place] [address] 11/14/2019 12:00:00 AM EST eCW1 ([facility]) Outpatient 11/06/2019 10:41:00 AM EST [facility] [address] [place] [address] 10/17/2019 12:00:00 AM EST eCW1 ([facility]) Immunizations Vaccine Date Status Description Data Source(s) Tdap 11/28/2019 08:49:00 AM EST completed e CW1 ([facility]) Tdap 11/28/2019 08:49:00 AM EST completed e CW1 ([facility]) Tdap 11/28/2019 08:49:00 AM EST completed e CW1 ([facility]) Tdap 11/28/2019 08:49:00 AM EST completed e CW1 ([facility]) Tdap 11/28/2019 08:49:00 AM EST completed e CW1 ([facility]) Tdap 11/28/2019 08:49:00 AM EST completed e CW1 ([facility]) Tdap 11/28/2019 08:49:00 AM EST completed e CW1 ([facility]) Tdap 11/28/2019 08:49:00 AM EST completed e CW1 ([facility]) Tdap 11/28/2019 08:49:00 AM EST completed e CW1 ([facility]) Tdap 11/28/2019 08:49:00 AM EST completed e CW1 ([facility]) Medications Medication Brand Name Start Date Product Form Dose Route Admi nistrative Instructions Pharmacy Instructions Status Indications Reaction Description Data Source(s) topiramate 25 MG Oral Tablet [Topamax] Topamax 25 MG Topamax 25 MG 04/22/2020 12:00:00 AM EDT suspended Topam ax 25 MG eCW1 ([facility]) topiramate 25 MG Oral Tablet [Topamax] Topamax 25 MG Topamax 25 MG 04/22/2020 12:00:00 AM EDT suspended Topam ax 25 MG eCW1 ([facility]) topiramate 25 MG Oral Tablet [Topamax] Topamax 25 MG Topamax 25 MG 04/22/2020 12:00:00 AM EDT suspended Topam ax 25 MG eCW1 ([facility]) topiramate 25 MG Oral Tablet [Topamax] Topamax 25 MG Topamax 25 MG 04/22/2020 12:00:00 AM EDT active Topamax 25 MG eCW1 ([facility]) topiramate 25 MG Oral Tablet [Topamax] Topamax 25 MG Topamax 25 MG 04/22/2020 12:00:00 AM EDT suspended Topam ax 25 MG eCW1 ([facility]) topiramate 25 MG Oral Tablet [Topamax] Topamax 25 MG Topamax 25 MG 04/22/2020 12:00:00 AM EDT active Topamax 25 MG eCW1 ([facility]) topiramate 25 MG Oral Tablet [Topamax] Topamax 25 MG Topamax 25 MG 04/22/2020 12:00:00 AM EDT suspended Topam ax 25 MG eCW1 ([facility]) topiramate 25 MG Oral Tablet [Topamax] Topamax 25 MG Topamax 25 MG 04/22/2020 12:00:00 AM EDT active Topamax 25 MG eCW1 ([facility]) 24 HR venlafaxine 37.5 MG Extended Relea se Oral Capsule [Effexor] Effexor XR 37.5 MG Effexor XR 37.5 MG 04/08/2020 12:00:00 AM EDT 1.0 {cap sule_with_food} suspended Effexor XR 37.5 MG e CW1 ([facility]) 24 HR venlafaxine 37.5 MG Extended Relea se Oral Capsule [Effexor] Effexor XR 37.5 MG Effexor XR 37.5 MG 04/08/2020 12:00:00 AM EDT 1.0 {cap sule_with_food} suspended Effexor XR 37.5 MG e CW1 ([facility]) topiramate 25 MG Oral Tablet [Topamax] Topamax 25 MG Topamax 25 MG 04/08/2020 12:00:00 AM EDT 1.0 {tablet} suspended Topamax 25 MG eCW1 ([facility]) topiramate 25 MG Oral Tablet [Topamax] Topamax 25 MG Topamax 25 MG 04/08/2020 12:00:00 AM EDT 1.0 {tablet} active To pamax 25 MG eCW1 ([facility]) 24 HR venlafaxine 37.5 MG Extended Relea se Oral Capsule [Effexor] Effexor XR 37.5 MG Effexor XR 37.5 MG 04/08/2020 12:00:00 AM EDT 1.0 {cap sule_with_food} suspended Effexor XR 37.5 MG e CW1 ([facility]) topiramate 25 MG Oral Tablet [Topamax] Topamax 25 MG Topamax 25 MG 04/08/2020 12:00:00 AM EDT 1.0 {tablet} suspended Topamax 25 MG eCW1 ([facility]) topiramate 25 MG Oral Tablet [Topamax] Topamax 25 MG Topamax 25 MG 04/08/2020 12:00:00 AM EDT 1.0 {tablet} active To pamax 25 MG eCW1 ([facility]) topiramate 25 MG Oral Tablet [Topamax] Topamax 25 MG Topamax 25 MG 04/08/2020 12:00:00 AM EDT 1.0 {tablet} suspended Topamax 25 MG eCW1 ([facility]) 24 HR venlafaxine 37.5 MG Extended Relea se Oral Capsule [Effexor] Effexor XR 37.5 MG Effexor XR 37.5 MG 04/08/2020 12:00:00 AM EDT 1.0 {cap sule_with_food} suspended Effexor XR 37.5 MG e CW1 ([facility]) topiramate 25 MG Oral Tablet [Topamax] Topamax 25 MG Topamax 25 MG 04/08/2020 12:00:00 AM EDT 1.0 {tablet} suspended Topamax 25 MG eCW1 ([facility]) 24 HR venlafaxine 37.5 MG Extended Relea se Oral Capsule [Effexor] Effexor XR 37.5 MG Effexor XR 37.5 MG 04/08/2020 12:00:00 AM EDT 1.0 {cap sule_with_food} active Effexor XR 37.5 MG e CW1 ([facility]) topiramate 25 MG Oral Tablet [Topamax] Topamax 25 MG Topamax 25 MG 04/08/2020 12:00:00 AM EDT 1.0 {tablet} suspended Topamax 25 MG eCW1 ([facility]) 24 HR venlafaxine 37.5 MG Extended Relea se Oral Capsule [Effexor] Effexor XR 37.5 MG Effexor XR 37.5 MG 04/08/2020 12:00:00 AM EDT 1.0 {cap sule_with_food} active Effexor XR 37.5 MG e CW1 ([facility]) 24 HR venlafaxine 37.5 MG Extended Relea se Oral Capsule [Effexor] Effexor XR 37.5 MG Effexor XR 37.5 MG 04/08/2020 12:00:00 AM EDT 1.0 {cap sule_with_food} suspended Effexor XR 37.5 MG e CW1 ([facility]) topiramate 25 MG Oral Tablet [Topamax] Topamax 25 MG Topamax 25 MG 04/08/2020 12:00:00 AM EDT 1.0 {tablet} active To pamax 25 MG eCW1 ([facility]) 24 HR venlafaxine 37.5 MG Extended Relea se Oral Capsule [Effexor] Effexor XR 37.5 MG Effexor XR 37.5 MG 04/08/2020 12:00:00 AM EDT 1.0 {cap sule_with_food} active Effexor XR 37.5 MG e CW1 ([facility]) 24 HR venlafaxine 37.5 MG Extended Relea se Oral Capsule Venlafaxine HCl ER 37.5 MG Venlafaxine HCl ER 37.5 MG 03/05/2020 12:00:00 AM EDT 1.0 {capsule_with_food} suspended Venlafaxin e HCl ER 37.5 MG eCW1 ([facility]) 24 HR venlafaxine 37.5 MG Extended Relea se Oral Capsule Venlafaxine HCl ER 37.5 MG Venlafaxine HCl ER 37.5 MG 03/05/2020 12:00:00 AM EDT 1.0 {capsule_with_food} suspended Venlafaxin e HCl ER 37.5 MG eCW1 ([facility]) 24 HR venlafaxine 37.5 MG Extended Relea se Oral Capsule Venlafaxine HCl ER 37.5 MG Venlafaxine HCl ER 37.5 MG 03/05/2020 12:00:00 AM EDT 1.0 {capsule_with_food} suspended Venlafaxin e HCl ER 37.5 MG eCW1 ([facility]) 24 HR venlafaxine 37.5 MG Extended Relea se Oral Capsule Venlafaxine HCl ER 37.5 MG Venlafaxine HCl ER 37.5 MG 03/05/2020 12:00:00 AM EDT 1.0 {capsule_with_food} suspended Venlafaxin e HCl ER 37.5 MG eCW1 ([facility]) 24 HR venlafaxine 37.5 MG Extended Relea se Oral Capsule Venlafaxine HCl ER 37.5 MG Venlafaxine HCl ER 37.5 MG 03/05/2020 12:00:00 AM EDT 1.0 {capsule_with_food} suspended Venlafaxin e HCl ER 37.5 MG eCW1 ([facility]) 24 HR venlafaxine 37.5 MG Extended Relea se Oral Capsule Venlafaxine HCl ER 37.5 MG Venlafaxine HCl ER 37.5 MG 03/05/2020 12:00:00 AM EDT 1.0 {capsule_with_food} active Venlafaxine HCl ER 37.5 MG eCW1 ([facility]) 24 HR venlafaxine 37.5 MG Extended Relea se Oral Capsule Venlafaxine HCl ER 37.5 MG Venlafaxine HCl ER 37.5 MG 03/05/2020 12:00:00 AM EDT 1.0 {capsule_with_food} suspended Venlafaxin e HCl ER 37.5 MG eCW1 ([facility]) 24 HR venlafaxine 37.5 MG Extended Relea se Oral Capsule Venlafaxine HCl ER 37.5 MG Venlafaxine HCl ER 37.5 MG 03/05/2020 12:00:00 AM EDT 1.0 {capsule_with_food} active Venlafaxine HCl ER 37.5 MG eCW1 ([facility]) 24 HR venlafaxine 37.5 MG Extended Relea se Oral Capsule Venlafaxine HCl ER 37.5 MG Venlafaxine HCl ER 37.5 MG 03/05/2020 12:00:00 AM EDT 1.0 {capsule_with_food} suspended Venlafaxin e HCl ER 37.5 MG eCW1 ([facility]) Sertraline 100 MG Oral Tablet [Zoloft] Zoloft 100 MG Zoloft 100 MG 02/13/2020 12:00:00 AM EDT active 1 tablet eCW1 ([facility]) Sertraline 100 MG Oral Tablet [Zoloft] Zoloft 100 MG Zoloft 100 MG 02/13/2020 12:00:00 AM EDT 1.0 {tablet} active Zo loft 100 MG eCW1 ([facility]) Sertraline 50 MG Oral Tablet [Zoloft] Zoloft 50 MG Zoloft 50 MG 02/12/2020 12:00:00 AM EDT 1.0 {tablet} active Zo loft 50 MG eCW1 ([facility]) Sertraline 50 MG Oral Tablet [Zoloft] Zoloft 50 MG Zoloft 50 MG 02/12/2020 12:00:00 AM EDT active 1 tablet eCW1 ([facility]) Sertraline 50 MG Oral Tablet [Zoloft] Zoloft 50 MG Zoloft 50 MG 02/12/2020 12:00:00 AM EDT 1.0 {tablet} suspended Zoloft 50 MG eCW1 ([facility]) Sertraline 50 MG Oral Tablet [Zoloft] Zoloft 50 MG Zoloft 50 MG 02/12/2020 12:00:00 AM EDT active 1 tablet eCW1 ([facility]) Sertraline 50 MG Oral Tablet [Zoloft] Zoloft 50 MG Zoloft 50 MG 02/12/2020 12:00:00 AM EDT 1.0 {tablet} suspended Zoloft 50 MG eCW1 ([facility]) Sertraline 50 MG Oral Tablet [Zoloft] Zoloft 50 MG Zoloft 50 MG 02/12/2020 12:00:00 AM EDT 1.0 {tablet} suspended Zoloft 50 MG eCW1 ([facility]) Sertraline 50 MG Oral Tablet [Zoloft] Zoloft 50 MG Zoloft 50 MG 02/12/2020 12:00:00 AM EDT 1.0 {tablet} suspended Zoloft 50 MG eCW1 ([facility]) Sertraline 50 MG Oral Tablet [Zoloft] Zoloft 50 MG Zoloft 50 MG 02/12/2020 12:00:00 AM EDT 1.0 {tablet} suspended Zoloft 50 MG eCW1 ([facility]) Sertraline 50 MG Oral Tablet [Zoloft] Zoloft 50 MG Zoloft 50 MG 02/12/2020 12:00:00 AM EDT 1.0 {tablet} active Zo loft 50 MG eCW1 ([facility]) Sertraline 50 MG Oral Tablet [Zoloft] Zoloft 50 MG Zoloft 50 MG 02/12/2020 12:00:00 AM EDT 1.0 {tablet} suspended Zoloft 50 MG eCW1 ([facility]) Sertraline 50 MG Oral Tablet [Zoloft] Zoloft 50 MG Zoloft 50 MG 02/12/2020 12:00:00 AM EDT 1.0 {tablet} suspended Zoloft 50 MG eCW1 ([facility]) Fluconazole 150 MG Oral Tablet [Diflucan] Diflucan 150 MG Di flucan 150 MG 11/23/2019 12:00:00 AM EST 1.0 {tablet} suspended Diflucan 150 MG eCW1 ([facility]) Fluconazole 150 MG Oral Tablet [Diflucan] Diflucan 150 MG Di flucan 150 MG 11/23/2019 12:00:00 AM EST 1.0 {tablet} suspended Diflucan 150 MG eCW1 ([facility]) Metronidazole 500 MG Oral Tablet Metronidazole 500 MG 2019 12:00:00 AM EST active 1 tablet eCW1 ([facility]) Fluconazole 150 MG Oral Tablet [Diflucan] Diflucan 150 MG Di flucan 150 MG 11/23/2019 12:00:00 AM EST 1.0 {tablet} suspended Diflucan 150 MG eCW1 ([facility]) Metronidazole 500 MG Oral Tablet Metronidazole 500 MG 2019 12:00:00 AM EST 1.0 {tablet} active Metronidazo le 500 MG eCW1 ([facility]) Fluconazole 150 MG Oral Tablet [Diflucan] Diflucan 150 MG Di flucan 150 MG 11/23/2019 12:00:00 AM EST suspended 1 tablet eCW1 ([facility]) Metronidazole 500 MG Oral Tablet Metronidazole 500 MG 2019 12:00:00 AM EST active 1 tablet eCW1 ([facility]) Fluconazole 150 MG Oral Tablet [Diflucan] Diflucan 150 MG Di flucan 150 MG 11/23/2019 12:00:00 AM EST active 1 tablet eCW1 ([facility]) Metronidazole 500 MG Oral Tablet Metronidazole 500 MG 2019 12:00:00 AM EST active 1 tablet eCW1 ([facility]) Metronidazole 500 MG Oral Tablet Metronidazole 500 MG 2019 12:00:00 AM EST 1.0 {tablet} suspended Metronid azole 500 MG eCW1 ([facility]) Fluconazole 150 MG Oral Tablet [Diflucan] Diflucan 150 MG Di flucan 150 MG 11/23/2019 12:00:00 AM EST 1.0 {tablet} suspended Diflucan 150 MG eCW1 ([facility]) Metronidazole 500 MG Oral Tablet Metronidazole 500 MG 2019 12:00:00 AM EST 1.0 {tablet} suspended Metronid azole 500 MG eCW1 ([facility]) Fluconazole 150 MG Oral Tablet [Diflucan] Diflucan 150 MG Di flucan 150 MG 11/23/2019 12:00:00 AM EST suspended 1 tablet eCW1 ([facility]) Metronidazole 500 MG Oral Tablet Metronidazole 500 MG 2019 12:00:00 AM EST active 1 tablet eCW1 ([facility]) Metronidazole 500 MG Oral Tablet Metronidazole 500 MG 2019 12:00:00 AM EST 1.0 {tablet} suspended Metronid azole 500 MG eCW1 ([facility]) Metronidazole 500 MG Oral Tablet Metronidazole 500 MG 2019 12:00:00 AM EST 1.0 {tablet} suspended Metronid azole 500 MG eCW1 ([facility]) Fluconazole 150 MG Oral Tablet [Diflucan] Diflucan 150 MG Di flucan 150 MG 11/23/2019 12:00:00 AM EST suspended 1 tablet eCW1 ([facility]) Fluconazole 150 MG Oral Tablet [Diflucan] Diflucan 150 MG Di flucan 150 MG 11/23/2019 12:00:00 AM EST 1.0 {tablet} suspended Diflucan 150 MG eCW1 ([facility]) Metronidazole 500 MG Oral Tablet Metronidazole 500 MG 2019 12:00:00 AM EST active 1 tablet eCW1 ([facility]) Metronidazole 500 MG Oral Tablet Metronidazole 500 MG 2019 12:00:00 AM EST active 1 tablet eCW1 ([facility]) Fluconazole 150 MG Oral Tablet [Diflucan] Diflucan 150 MG Di flucan 150 MG 11/23/2019 12:00:00 AM EST suspended 1 tablet eCW1 ([facility]) Metronidazole 500 MG Oral Tablet Metronidazole 500 MG 2019 12:00:00 AM EST 1.0 {tablet} suspended Metronid azole 500 MG eCW1 ([facility]) Fluconazole 150 MG Oral Tablet [Diflucan] Diflucan 150 MG Di flucan 150 MG 11/23/2019 12:00:00 AM EST suspended 1 tablet eCW1 ([facility]) Metronidazole 500 MG Oral Tablet Metronidazole 500 MG 2019 12:00:00 AM EST active 1 tablet eCW1 ([facility]) Fluconazole 150 MG Oral Tablet [Diflucan] Diflucan 150 MG Di flucan 150 MG 11/23/2019 12:00:00 AM EST suspended 1 tablet eCW1 ([facility]) Metronidazole 500 MG Oral Tablet Metronidazole 500 MG 2019 12:00:00 AM EST 1.0 {tablet} suspended Metronid azole 500 MG eCW1 ([facility]) Fluconazole 150 MG Oral Tablet [Diflucan] Diflucan 150 MG Di flucan 150 MG 11/23/2019 12:00:00 AM EST 1.0 {tablet} suspended Diflucan 150 MG eCW1 ([facility]) Metronidazole 500 MG Oral Tablet Metronidazole 500 MG 2019 12:00:00 AM EST active 1 tablet eCW1 ([facility]) Metronidazole 500 MG Oral Tablet Metronidazole 500 MG 2019 12:00:00 AM EST 1.0 {tablet} suspended Metronid azole 500 MG eCW1 ([facility]) Fluconazole 150 MG Oral Tablet [Diflucan] Diflucan 150 MG Di flucan 150 MG 11/23/2019 12:00:00 AM EST suspended 1 tablet eCW1 ([facility]) Fluconazole 150 MG Oral Tablet [Diflucan] Diflucan 150 MG Di flucan 150 MG 11/23/2019 12:00:00 AM EST 1.0 {tablet} suspended Diflucan 150 MG eCW1 ([facility]) Metronidazole 500 MG Oral Tablet Metronidazole 500 MG 2019 12:00:00 AM EST 1.0 {tablet} suspended Metronid azole 500 MG eCW1 ([facility]) Metronidazole 500 MG Oral Tablet Metronidazole 500 MG 2019 12:00:00 AM EST suspended 1 tablet eCW1 ([facility]) Fluconazole 150 MG Oral Tablet [Diflucan] Diflucan 150 MG Di flucan 150 MG 11/23/2019 12:00:00 AM EST 1.0 {tablet} suspended Diflucan 150 MG eCW1 ([facility]) Fluconazole 150 MG Oral Tablet [Diflucan] Diflucan 150 MG Di flucan 150 MG 11/23/2019 12:00:00 AM EST 1.0 {tablet} active Diflucan 150 MG eCW1 ([facility]) Metronidazole 500 MG Oral Tablet Metronidazole 500 MG 2019 12:00:00 AM EST active 1 tablet eCW1 ([facility]) Fluconazole 150 MG Oral Tablet [Diflucan] Diflucan 150 MG Di flucan 150 MG 11/23/2019 12:00:00 AM EST suspended 1 tablet eCW1 ([facility]) Fluconazole 150 MG Oral Tablet [Diflucan] Diflucan 150 MG Di flucan 150 MG 11/23/2019 12:00:00 AM EST suspended 1 tablet eCW1 ([facility]) Docusate Sodium 100 MG Oral Tablet Stool Softener 100 MG Sto ol Softener 100 MG 11/14/2019 12:00:00 AM EST active Stool Softener 100 MG eCW1 ([facility]) Sertraline 25 MG Oral Tablet [Zoloft] Zoloft 25 MG Zoloft 25 MG 11/14/2019 12:00:00 AM EST 1.0 {tablet} active Zo loft 25 MG eCW1 ([facility]) ferrous gluconate 324 MG Oral Tablet Ferrous Gluconate 324 (38 Fe) MG Ferrous Gluconate 324 (38 Fe) MG 11/14/2019 12:00:00 AM EST active 1 tablet with water or juice between meals eCW1 ([facility]) ferrous gluconate 324 MG Oral Tablet Ferrous Gluconate 324 (38 Fe) MG Ferrous Gluconate 324 (38 Fe) MG 11/14/2019 12:00:00 AM EST suspended Ferrous Gluconate 324 (38 Fe) MG eCW1 ([facility]) Docusate Sodium 100 MG Oral Tablet Stool Softener 100 MG Sto ol Softener 100 MG 11/14/2019 12:00:00 AM EST active 1 tablet as needed for constipation eCW1 ([facility]) ferrous gluconate 324 MG Oral Tablet Ferrous Gluconate 324 (38 Fe) MG Ferrous Gluconate 324 (38 Fe) MG 11/14/2019 12:00:00 AM EST active 1 tablet with water or juice between meals eCW1 ([facility]) Docusate Sodium 100 MG Oral Tablet Stool Softener 100 MG Sto ol Softener 100 MG 11/14/2019 12:00:00 AM EST active 1 tablet as needed for constipation eCW1 ([facility]) Sertraline 25 MG Oral Tablet [Zoloft] Zoloft 25 MG Zoloft 25 MG 11/14/2019 12:00:00 AM EST 1.0 {tablet} suspended Zoloft 25 MG eCW1 ([facility]) Sertraline 25 MG Oral Tablet [Zoloft] Zoloft 25 MG Zoloft 25 MG 11/14/2019 12:00:00 AM EST active 1 tablet eCW1 ([facility]) ferrous gluconate 324 MG Oral Tablet Ferrous Gluconate 324 (38 Fe) MG Ferrous Gluconate 324 (38 Fe) MG 11/14/2019 12:00:00 AM EST active 1 tablet with water or juice between meals eCW1 ([facility]) Docusate Sodium 100 MG Oral Tablet Stool Softener 100 MG Sto ol Softener 100 MG 11/14/2019 12:00:00 AM EST suspended Stool Softener 100 MG eCW1 ([facility]) Sertraline 25 MG Oral Tablet [Zoloft] Zoloft 25 MG Zoloft 25 MG 11/14/2019 12:00:00 AM EST active 1 tablet eCW1 ([facility]) Docusate Sodium 100 MG Oral Tablet Stool Softener 100 MG Sto ol Softener 100 MG 11/14/2019 12:00:00 AM EST active 1 tablet as needed for constipation eCW1 ([facility]) Sertraline 25 MG Oral Tablet [Zoloft] Zoloft 25 MG Zoloft 25 MG 11/14/2019 12:00:00 AM EST active 1 tablet eCW1 ([facility]) Sertraline 25 MG Oral Tablet [Zoloft] Zoloft 25 MG Zoloft 25 MG 11/14/2019 12:00:00 AM EST 1.0 {tablet} suspended Zoloft 25 MG eCW1 ([facility]) ferrous gluconate 324 MG Oral Tablet Ferrous Gluconate 324 (38 Fe) MG Ferrous Gluconate 324 (38 Fe) MG 11/14/2019 12:00:00 AM EST suspended Ferrous Gluconate 324 (38 Fe) MG eCW1 ([facility]) Sertraline 25 MG Oral Tablet [Zoloft] Zoloft 25 MG Zoloft 25 MG 11/14/2019 12:00:00 AM EST 1.0 {tablet} suspended Zoloft 25 MG eCW1 ([facility]) Sertraline 25 MG Oral Tablet [Zoloft] Zoloft 25 MG Zoloft 25 MG 11/14/2019 12:00:00 AM EST active 1 tablet eCW1 ([facility]) ferrous gluconate 324 MG Oral Tablet Ferrous Gluconate 324 (38 Fe) MG Ferrous Gluconate 324 (38 Fe) MG 11/14/2019 12:00:00 AM EST active 1 tablet with water or juice between meals eCW1 ([facility]) Docusate Sodium 100 MG Oral Tablet Stool Softener 100 MG Sto ol Softener 100 MG 11/14/2019 12:00:00 AM EST suspended Stool Softener 100 MG eCW1 ([facility]) ferrous gluconate 324 MG Oral Tablet Ferrous Gluconate 324 (38 Fe) MG Ferrous Gluconate 324 (38 Fe) MG 11/14/2019 12:00:00 AM EST active 1 tablet with water or juice between meals eCW1 ([facility]) ferrous gluconate 324 MG Oral Tablet Ferrous Gluconate 324 (38 Fe) MG Ferrous Gluconate 324 (38 Fe) MG 11/14/2019 12:00:00 AM EST active 1 tablet with water or juice between meals eCW1 ([facility]) Docusate Sodium 100 MG Oral Tablet Stool Softener 100 MG Sto ol Softener 100 MG 11/14/2019 12:00:00 AM EST suspended Stool Softener 100 MG eCW1 ([facility]) Sertraline 25 MG Oral Tablet [Zoloft] Zoloft 25 MG Zoloft 25 MG 11/14/2019 12:00:00 AM EST 1.0 {tablet} suspended Zoloft 25 MG eCW1 ([facility]) Sertraline 25 MG Oral Tablet [Zoloft] Zoloft 25 MG Zoloft 25 MG 11/14/2019 12:00:00 AM EST 1.0 {tablet} suspended Zoloft 25 MG eCW1 ([facility]) ferrous gluconate 324 MG Oral Tablet Ferrous Gluconate 324 (38 Fe) MG Ferrous Gluconate 324 (38 Fe) MG 11/14/2019 12:00:00 AM EST suspended Ferrous Gluconate 324 (38 Fe) MG eCW1 ([facility]) Docusate Sodium 100 MG Oral Tablet Stool Softener 100 MG Sto ol Softener 100 MG 11/14/2019 12:00:00 AM EST suspended Stool Softener 100 MG eCW1 ([facility]) Docusate Sodium 100 MG Oral Tablet Stool Softener 100 MG Sto ol Softener 100 MG 11/14/2019 12:00:00 AM EST suspended Stool Softener 100 MG eCW1 ([facility]) Sertraline 25 MG Oral Tablet [Zoloft] Zoloft 25 MG Zoloft 25 MG 11/14/2019 12:00:00 AM EST active 1 tablet eCW1 ([facility]) ferrous gluconate 324 MG Oral Tablet Ferrous Gluconate 324 (38 Fe) MG Ferrous Gluconate 324 (38 Fe) MG 11/14/2019 12:00:00 AM EST active Ferrous Gluconate 324 (38 Fe) MG eCW1 ([facility]) Docusate Sodium 100 MG Oral Tablet Stool Softener 100 MG Sto ol Softener 100 MG 11/14/2019 12:00:00 AM EST active 1 tablet as needed for constipation [facility]CW1 ([facility] [facility]) Docusate Sodium 100 MG Oral Tablet Stool Softener 100 MG Sto ol Softener 100 MG 11/14/2019 12:00:00 AM EST active 1 tablet as needed for constipation eCW1 ([facility]) Docusate Sodium 100 MG Oral Tablet Stool Softener 100 MG Sto ol Softener 100 MG 11/14/2019 12:00:00 AM EST active 1 tablet as needed for constipation eCW1 ([facility]) ferrous gluconate 324 MG Oral Tablet Ferrous Gluconate 324 (38 Fe) MG Ferrous Gluconate 324 (38 Fe) MG 11/14/2019 12:00:00 AM EST active Ferrous Gluconate 324 (38 Fe) MG eCW1 ([facility]) Sertraline 25 MG Oral Tablet [Zoloft] Zoloft 25 MG Zoloft 25 MG 11/14/2019 12:00:00 AM EST 1.0 {tablet} active Zo loft 25 MG eCW1 ([facility]) Docusate Sodium 100 MG Oral Tablet Stool Softener 100 MG Sto ol Softener 100 MG 11/14/2019 12:00:00 AM EST suspended Stool Softener 100 MG eCW1 ([facility]) ferrous gluconate 324 MG Oral Tablet Ferrous Gluconate 324 (38 Fe) MG Ferrous Gluconate 324 (38 Fe) MG 11/14/2019 12:00:00 AM EST suspended Ferrous Gluconate 324 (38 Fe) MG eCW1 ([facility]) ferrous gluconate 324 MG Oral Tablet Ferrous Gluconate 324 (38 Fe) MG Ferrous Gluconate 324 (38 Fe) MG 11/14/2019 12:00:00 AM EST suspended Ferrous Gluconate 324 (38 Fe) MG eCW1 ([facility]) Docusate Sodium 100 MG Oral Tablet Stool Softener 100 MG Sto ol Softener 100 MG 11/14/2019 12:00:00 AM EST suspended Stool Softener 100 MG eCW1 ([facility]) ferrous gluconate 324 MG Oral Tablet Ferrous Gluconate 324 (38 Fe) MG Ferrous Gluconate 324 (38 Fe) MG 11/14/2019 12:00:00 AM EST active 1 tablet with water or juice between meals eCW1 ([facility]) Sertraline 25 MG Oral Tablet [Zoloft] Zoloft 25 MG Zoloft 25 MG 11/14/2019 12:00:00 AM EST 1.0 {tablet} suspended Zoloft 25 MG eCW1 ([facility]) Docusate Sodium 100 MG Oral Tablet Stool Softener 100 MG Sto ol Softener 100 MG 11/14/2019 12:00:00 AM EST active 1 tablet as needed for constipation eCW1 ([facility]) Docusate Sodium 100 MG Oral Tablet Stool Softener 100 MG Sto ol Softener 100 MG 11/14/2019 12:00:00 AM EST active 1 tablet as needed for constipation eCW1 ([facility]) Sertraline 25 MG Oral Tablet [Zoloft] Zoloft 25 MG Zoloft 25 MG 11/14/2019 12:00:00 AM EST active 1 tablet eCW1 ([facility]) ferrous gluconate 324 MG Oral Tablet Ferrous Gluconate 324 (38 Fe) MG Ferrous Gluconate 324 (38 Fe) MG 11/14/2019 12:00:00 AM EST active 1 tablet with water or juice between meals eCW1 ([facility]) Sertraline 25 MG Oral Tablet [Zoloft] Zoloft 25 MG Zoloft 25 MG 11/14/2019 12:00:00 AM EST active 1 tablet eCW1 ([facility]) Sertraline 25 MG Oral Tablet [Zoloft] Zoloft 25 MG Zoloft 25 MG 11/14/2019 12:00:00 AM EST active 1 tablet eCW1 ([facility]) ferrous gluconate 324 MG Oral Tablet Ferrous Gluconate 324 (38 Fe) MG Ferrous Gluconate 324 (38 Fe) MG 11/14/2019 12:00:00 AM EST active 1 tablet with water or juice between meals eCW1 ([facility]) ferrous gluconate 324 MG Oral Tablet Ferrous Gluconate 324 (38 Fe) MG Ferrous Gluconate 324 (38 Fe) MG 11/14/2019 12:00:00 AM EST suspended Ferrous Gluconate 324 (38 Fe) MG eCW1 ([facility]) Sertraline 25 MG Oral Tablet [Zoloft] Zoloft 25 MG Zoloft 25 MG 11/14/2019 12:00:00 AM EST active 1 tablet eCW1 ([facility]) ferrous gluconate 324 MG Oral Tablet Ferrous Gluconate 324 (38 Fe) MG Ferrous Gluconate 324 (38 Fe) MG 11/14/2019 12:00:00 AM EST active 1 tablet with water or juice between meals eCW1 ([facility]) Docusate Sodium 100 MG Oral Tablet Stool Softener 100 MG Sto ol Softener 100 MG 11/14/2019 12:00:00 AM EST active 1 tablet as needed for constipation eCW1 ([facility]) Docusate Sodium 100 MG Oral Tablet Stool Softener 100 MG Sto ol Softener 100 MG 11/14/2019 12:00:00 AM EST active Stool Softener 100 MG eCW1 ([facility]) Docusate Sodium 100 MG Oral Tablet Stool Softener 100 MG Sto ol Softener 100 MG 11/14/2019 12:00:00 AM EST active 1 tablet as needed for constipation eCW1 ([facility]) Sertraline 25 MG Oral Tablet [Zoloft] Zoloft 25 MG Zoloft 25 MG 11/14/2019 12:00:00 AM EST active 1 tablet eCW1 ([facility]) ferrous gluconate 324 MG Oral Tablet Ferrous Gluconate 324 (38 Fe) MG Ferrous Gluconate 324 (38 Fe) MG 11/14/2019 12:00:00 AM EST suspended Ferrous Gluconate 324 (38 Fe) MG eCW1 ([facility]) Sertraline 25 MG Oral Tablet [Zoloft] Zoloft 25 MG Zoloft 25 MG 11/14/2019 12:00:00 AM EST 1.0 {tablet} suspended Zoloft 25 MG eCW1 ([facility]) Insurance Providers Payer name Policy type / Coverage type Policy ID Covered republican ID Covered republican's relationship to shaver Policy Shaver Plan Information ISABELLE [id number] SP [id number] [place] [id number] [place] [id number] S [id number] MEDICAID [id number] SP [id number] BLUE CROSS EMPIRE [place]IP [id number] SELF [id number] [facility] BLUE CROSS [id number] SELF [id number] [facility] (HMO) [facility] EMPIRE PLAN(REFERRED SPEC) [id number] SELF [id number] SELF PAY UNAVAILABLE SELF UNAVAILA BLE BLUE CROSS [id number] MOTHER [id number] Problems, Conditions, and Diagnoses Code Display Name Description Problem Type Effective Dates Data Source(s) Z34.80 care Supervision of other normal P shervik 10/31/2020 12:00:00 AM EST eCW1 ([facility]) G43.009 [id number] Migraine without aur a and without status migrainosus, not intractable Problem 04/08/2020 12:00:00 AM EDT eCW1 ([facility]) F33.1 [id number] Moderate episode of recurrent major depre ssive disorder Problem 04/08/2020 12:00:00 AM EDT eCW1 ([facility]) O16.3 [id number] Unspecified maternal hypertension, third trimester Problem 01/16/2020 12:00:00 AM EDT eCW1 ([facility]) O16.3 [id number] Unspecified maternal hypertension, third trimester Problem 01/16/2020 12:00:00 AM EDT eCW1 ([facility]) F32.9 [id number] Major depressive disorder, single episode , unspecified Problem 11/14/2019 12:00:00 AM EST eCW1 ([facility]) O99.013 48823692 Anemia affecting in third trime ster Problem 11/14/2019 12:00:00 AM EST eCW1 ([facility]) F32.9 12674911 Major depressive disorder, single episode , unspecified Problem 11/14/2019 12:00:00 AM EST eCW1 ([facility]) O99.013 48200922 Anemia affecting in third trime ster Problem 11/14/2019 12:00:00 AM EST eCW1 ([facility]) J029 Acute pharyngitis, unspecified Acute pharyngitis, unsp ecified Diagnosis 06/12/2020 03:00:00 PM EDT [facility] Surgeries/Procedures Procedure Description Date Indications Data Source(s) CARE VISIT 02/13/2020 12:00:00 AM EDT eCW1 ([facility]) OB Visit 01/23/2020 12:00:00 AM EDT e CW1 ([facility]) TDAP 0.5mL ([facility]) 11/28/2019 12:00:00 AM EST eCW1 ([facility]) IMMUNIZATION ADMIN 11/28/2019 12:00:00 AM EST eCW1 ([facility]) Results ID Date Data Source HCG, SERUM QUANTITATIVE 11/19/2020 12:00:00 AM EST eCW1 ([facility]) Name Value Range Interpretation Code Description Data Trini rce(s) Supporting Document(s) 87858 HCG, SERUM QUANTITATIVE eCW1 ( [facility]) ID Date Data Source [id number] 06/15/2020 11:14:00 AM EDT [facility] Name Value Range Interpretation Code Description Data Trini rce(s) Supporting Document(s) CULTURE UPPER RESPIRATORY [facility] _CULTURE UPPER RESPIRATORY_$$[id number]$$[id number]$$[id number]$$[id number]$$[id number]$$[id number]$$[id number] DATE/TIME: 06/15/2020 11:06Culture: CULTURE UPPER RESPIRATORY Status: FinalUpper Respiratory Culture: [id number] respiratory floraP1 Test performed by: YunierCobrooks Dudley CLIA #: [id number] [address] [place] [address] [id number] [facility] [id number] Director : Chu Kan MD NPI #:Project Admin : [email or web address] REF ID Date Data Source [id number] 06/12/2020 12:00:00 PM EDT [facility] Name Value Range Interpretation Code Description Data Trini rce(s) Supporting Document(s) SARS coronavirus 2 RNA [facility] This lab was ordered by [facility] jorge and reported by [facility]. ID Date Data Source [id number] 06/14/2020 12:37:00 PM EDT [facility] Name Value Range Interpretation Code Description Data Trini rce(s) Supporting Document(s) SARS-CoV-2, SIMONE Not Detected Not Detected [facility] This test was developed and its performa nce characteristics determinedby [facility]. This test has not been FDA [...] URINE 01/16/2020 12:00:00 AM EDT eCW1 ( [facility]) Name Value Range Interpretation Code Description Data Trini rce(s) Supporting Document(s) 13.7 0.0-12.0 TOTAL PROTEIN,RANDOM URIN E eCW1 ([facility]) ID Date Data Source CREATININE,RANDOM URINE 01/16/2020 12:00:00 AM EDT eCW1 ([facility]) Name Value Range Interpretation Code Description Data Trini rce(s) Supporting Document(s) 77.0 CREATININE,RANDOM URINE eCW1 ( [facility]) ID Date Data Source Pre Eclampsia Profile 01/16/2020 12:00:00 AM EDT eCW1 ([facility]) Name Value Range Interpretation Code Description Data Trini rce(s) Supporting Document(s) > 60.0 >60 GLOMERULAR FILTRATION RATE eCW 1 ([facility]) 16 12-78 ALT/SGPT eCW1 ([facility]) 17 7-37 AST/SGOT eCW1 ([facility]) 0.63 0.55-1.30 CREATININE FOR GFR eCW1 ([facility]) 0.4 0.2-1.0 BILIRUBIN,TOTAL eCW1 ([facility]) 179 84-246 LDH LACTATE DEHYDROGENASE eCW1 ([facility]) 4.3 2.6-6.0 URIC ACID eCW1 ([facility]) ID Date Data Source CBC - Complete Blood Count 01/16/2020 12:00:00 AM EDT eCW1 ( [facility]) Name Value Range Interpretation Code Description Data Trini rce(s) Supporting Document(s) 8.4 4.0-10.0 WHITE BLOOD COUNT eCW1 ([facility]) 3.39 4.00-5.40 RED BLOOD COUNT eCW1 ([facility]) 11.3 12.0-15.5 HEMOGLOBIN eCW1 ([facility]) 102.1 80.0-96.0 MEAN CORPUSCULAR VOLUME e CW1 ([facility]) 34.6 36.0-47.0 HEMATOCRIT eCW1 ([facility]) 224 150-450 PLATELET COUNT, AUTOMATED eCW1 ([facility]) 33.3 27.0-33.0 MEAN CORPUSCULAR HEMOGLOB IN eCW1 ([facility]) 32.7 32.0-36.5 MEAN CORPUSCULAR HGB CONC eCW1 ([facility]) 14.9 11.5-14.5 RED CELL DISTRIBUTION WID TH eCW1 ([facility]) ID Date Data Source GLUCOSE CHALLENGE TEST 1 HR 10/30/2019 12:00:00 AM EST eCW1 ([facility]) Name Value Range Interpretation Code Description Data Trini rce(s) Supporting Document(s) 106 LESS THAN 140 GLUCOSE CHALLENGE TEST 1 HOUR eCW1 ([facility]) ID Date Data Source CBC 10/30/2019 12:00:00 AM EST eCW1 ([facility]) Name Value Range Interpretation Code Description Data Trini rce(s) Supporting Document(s) 9.9 12.0-15.5 HEMOGLOBIN eCW1 ([facility]) 10.0 4.0-10.0 WHITE BLOOD COUNT eCW1 ([facility]) 3.05 4.00-5.40 RED BLOOD COUNT eCW1 ([facility]) 30.7 36.0-47.0 HEMATOCRIT eCW1 ([facility]) 100.7 80.0-96.0 MEAN CORPUSCULAR VOLUME e CW1 ([facility]) 32.5 27.0-33.0 MEAN CORPUSCULAR HEMOGLOB IN eCW1 ([facility]) 32.2 32.0-36.5 MEAN CORPUSCULAR HGB CONC eCW1 ([facility]) 250 150-450 PLATELET COUNT, AUTOMATED eCW1 ([facility]) 12.9 11.5-14.5 RED CELL DISTRIBUTION WID TH eCW1 ([facility]) ID Date Data Source Type and Screen (D Rh Antibody Screen) 10/30/2019 12:00:00 A M EST eCW1 ([facility]) Name Value Range Interpretation Code Description Data Trini rce(s) Supporting Document(s) NEGATIVE AB SCREEN (INDIRECT COOMB S)VIS eCW1 ([facility]) O POSITIVE BLOOD TYPE eCW1 ([facility]) ID Date Data Source VITAMIN D 1,25 DIHYDROXY 10/11/2019 12:00:00 AM EST eCW1 ([facility]) Name Value Range Interpretation Code Description Data Trini rce(s) Supporting Document(s) 77.1 19.9-79.3 VITAMIN D 1,25 DIHYDROXY eCW1 ([facility]) ID Date Data Source FREE T4 & TSH PANEL 10/11/2019 12:00:00 AM EST eCW1 ([facility]) Name Value Range Interpretation Code Description Data Trini rce(s) Supporting Document(s) 1.070 0.358-3.740 THYROID STIMULATING HORM ONE eCW1 ([facility]) 0.83 0.76-1.46 FREE T4 eCW1 ([facility]) Procedure Social History Code Duration Value Status Description Data Source(s ) Smoking 11/19/2020 12:00:00 AM EST Never Smoker completed Never S moker eCW1 ([facility]) Smoking 11/19/2020 12:00:00 AM EST Never Smoker completed Never S moker eCW1 ([facility]) Smoking 11/15/2020 12:00:00 AM EST Never Smoker completed Never S moker eCW1 ([facility]) Smoking 11/05/2020 12:00:00 AM EST Never Smoker completed Never S moker eCW1 ([facility]) Smoking 11/05/2020 12:00:00 AM EST Never Smoker completed Never S moker eCW1 ([facility]) Smoking 07/20/2020 12:00:00 AM EDT Never Smoker completed Never S moker eCW1 ([facility]) Smoking 07/20/2020 12:00:00 AM EDT Never Smoker completed Never S moker eCW1 ([facility]) Smoking 04/08/2020 12:00:00 AM EDT Never Smoker completed Never S moker eCW1 ([facility]) Smoking 02/13/2020 12:00:00 AM EDT Never Smoker completed Never S moker eCW1 ([facility]) Vital Signs ID Date Data Source UNK Name Value Range Interpretation Code Description Data Source(s) Diastolic blood pressure 70 mm[Hg] 70 mm[Hg] eCW1 ([facility]) Systolic blood pressure 120 mm[Hg] 120 mm[Hg] e CW1 ([facility]) Body mass index (BMI) [Ratio] 29.29 kg/m2 29.29 kg/m2 eCW1 ([facility]) Body height 67 [in_i] 67 [in_i] eCW1 ([facility]) Body weight 187.0 [lb_av] 187.0 [lb_av] eCW1 ([facility]) Diastolic blood pressure 82 mm[Hg] 82 mm[Hg] eCW1 ([facility]) Systolic blood pressure 138 mm[Hg] 138 mm[Hg] e CW1 ([facility]) Body mass index (BMI) [Ratio] 29.194 kg/m2 29.1 94 kg/m2 eCW1 ([facility]) Body height 67 [in_i] 67 [in_i] eCW1 ([facility]) Body weight 186.4 [lb_av] 186.4 [lb_av] eCW1 ([facility]) Diastolic blood pressure 68 mm[Hg] 68 mm[Hg] eCW1 ([facility]) Systolic blood pressure 114 mm[Hg] 114 mm[Hg] e CW1 ([facility]) Body mass index (BMI) [Ratio] 32.17 kg/m2 32.17 kg/m2 eCW1 ([facility]) Body height 67 [in_us] 67 [in_us] eCW1 ([facility]) Body weight Measured 205.4 [lb_av] 205.4 [lb_av ] eCW1 ([facility]) Diastolic blood pressure 74 mm[Hg] 74 mm[Hg] eCW1 ([facility]) Systolic blood pressure 122 mm[Hg] 122 mm[Hg] e CW1 ([facility]) Body mass index (BMI) [Ratio] 36.775 kg/m2 36.7 75 kg/m2 eCW1 ([facility]) Body height 67 [in_us] 67 [in_us] eCW1 ([facility]) Body weight Measured 234.8 [lb_av] 234.8 [lb_av ] eCW1 ([facility]) Diastolic blood pressure 72 mm[Hg] 72 mm[Hg] eCW1 ([facility]) Systolic blood pressure 130 mm[Hg] 130 mm[Hg] e CW1 ([facility]) Body mass index (BMI) [Ratio] 36.211 kg/m2 36.2 11 kg/m2 eCW1 ([facility]) Body height 67 [in_us] 67 [in_us] eCW1 ([facility]) Body weight Measured 231.2 [lb_av] 231.2 [lb_av ] eCW1 ([facility]) Diastolic blood pressure 84 mm[Hg] 84 mm[Hg] eCW1 ([facility]) Systolic blood pressure 150 mm[Hg] 150 mm[Hg] e CW1 ([facility]) Body mass index (BMI) [Ratio] 36.086 kg/m2 36.0 86 kg/m2 eCW1 ([facility]) Body height 67 [in_us] 67 [in_us] eCW1 ([facility]) Body weight Measured 230.4 [lb_av] 230.4 [lb_av ] eCW1 ([facility]) Diastolic blood pressure 70 mm[Hg] 70 mm[Hg] eCW1 ([facility]) Systolic blood pressure 138 mm[Hg] 138 mm[Hg] e CW1 ([facility]) Body mass index (BMI) [Ratio] 35.679 kg/m2 35.6 79 kg/m2 eCW1 ([facility]) Body height 67 [in_us] 67 [in_us] eCW1 ([facility]) Body weight Measured 227.8 [lb_av] 227.8 [lb_av ] eCW1 ([facility]) Diastolic blood pressure 78 mm[Hg] 78 mm[Hg] eCW1 ([facility]) Systolic blood pressure 120 mm[Hg] 120 mm[Hg] e CW1 ([facility]) Body mass index (BMI) [Ratio] 35.428 kg/m2 35.4 28 kg/m2 eCW1 ([facility]) Body height 67 [in_us] 67 [in_us] eCW1 ([facility]) Body weight Measured 226.2 [lb_av] 226.2 [lb_av ] eCW1 ([facility]) Diastolic blood pressure 80 mm[Hg] 80 mm[Hg] eCW1 ([facility]) Systolic blood pressure 122 mm[Hg] 122 mm[Hg] e CW1 ([facility]) Body mass index (BMI) [Ratio] 35.365 kg/m2 35.3 65 kg/m2 eCW1 ([facility]) Body height 67 [in_us] 67 [in_us] eCW1 ([facility]) Body weight Measured 225.8 [lb_av] 225.8 [lb_av ] eCW1 ([facility]) Diastolic blood pressure 74 mm[Hg] 74 mm[Hg] eCW1 ([facility]) Systolic blood pressure 130 mm[Hg] 130 mm[Hg] e CW1 ([facility]) Body mass index (BMI) [Ratio] 34.864 kg/m2 34.8 64 kg/m2 eCW1 ([facility]) Body height 67 [in_us] 67 [in_us] eCW1 ([facility]) Body weight Measured 222.6 [lb_av] 222.6 [lb_av ] eCW1 ([facility]) Diastolic blood pressure 70 mm[Hg] 70 mm[Hg] eCW1 ([facility]) Systolic blood pressure 124 mm[Hg] 124 mm[Hg] e CW1 ([facility]) Body mass index (BMI) [Ratio] 34.426 kg/m2 34.4 26 kg/m2 eCW1 ([facility]) Body height 67 [in_us] 67 [in_us] eCW1 ([facility]) Body weight Measured 219.8 [lb_av] 219.8 [lb_av ] eCW1 ([facility]) Diastolic blood pressure 72 mm[Hg] 72 mm[Hg] eCW1 ([facility]) Systolic blood pressure 120 mm[Hg] 120 mm[Hg] e CW1 ([facility]) Body mass index (BMI) [Ratio] 33.956 kg/m2 33.9 56 kg/m2 eCW1 ([facility]) Body height 67 [in_us] 67 [in_us] eCW1 ([facility]) Body weight Measured 216.8 [lb_av] 216.8 [lb_av ] eCW1 ([facility]) Diastolic blood pressure 62 mm[Hg] 62 mm[Hg] eCW1 ([facility]) Systolic blood pressure 112 mm[Hg] 112 mm[Hg] e CW1 ([facility]) Body mass index (BMI) [Ratio] 33.235 kg/m2 33.2 35 kg/m2 eCW1 ([facility]) Body height 67 [in_us] 67 [in_us] eCW1 ([facility]) Body weight Measured 212.2 [lb_av] 212.2 [lb_av ] eCW1 ([facility]) Patient Treatment Plan of Care Planned Activity Planned Date Details Description Data Source (s) topiramate 25 MG Oral Tablet [Topamax] 04/22/2020 12:00:00 AM EDT eCW1 ([facility]) topiramate 25 MG Oral Tablet [Topamax] 04/22/2020 12:00:00 AM EDT eCW1 ([facility]) topiramate 25 MG Oral Tablet [Topamax] 04/22/2020 12:00:00 AM EDT eCW1 ([facility]) 24 HR venlafaxine 37.5 MG Extended Release Oral Capsul e [Effexor] 04/08/2020 12:00:00 AM EDT eCW1 ([facility]) topiramate 25 MG Oral Tablet [Topamax] 04/08/2020 12:00:00 AM EDT eCW1 ([facility]) 24 HR venlafaxine 37.5 MG Extended Release Oral Capsul e [Effexor] 04/08/2020 12:00:00 AM EDT eCW1 ([facility]) topiramate 25 MG Oral Tablet [Topamax] 04/08/2020 12:00:00 AM EDT eCW1 ([facility]) 24 HR venlafaxine 37.5 MG Extended Release Oral Capsul e [Effexor] 04/08/2020 12:00:00 AM EDT eCW1 ([facility]) topiramate 25 MG Oral Tablet [Topamax] 04/08/2020 12:00:00 AM EDT eCW1 ([facility]) 24 HR venlafaxine 37.5 MG Extended Release Oral Capsul e 03/05/2020 12:00:00 AM EDT eCW1 ([facility]) Sertraline 100 MG Oral Tablet [Zoloft] 02/13/2020 12:00:00 AM EDT eCW1 ([facility]) Sertraline 100 MG Oral Tablet [Zoloft] 02/13/2020 12:00:00 AM EDT eCW1 ([facility]) Sertraline 50 MG Oral Tablet [Zoloft] 02/12/2020 12:00:00 AM EDT eCW1 ([facility]) Fluconazole 150 MG Oral Tablet [Diflucan] 11/23/2019 12:00:00 AM ES T eCW1 ([facility]) Metronidazole 500 MG Oral Tablet 11/23/2019 12:00:00 AM EST eCW1 ([facility]) Docusate Sodium 100 MG Oral Tablet 11/14/2019 12:00:00 AM EST eCW1 ([facility]) ferrous gluconate 324 MG Oral Tablet 11/14/2019 12:00:00 AM EST eCW1 ([facility]) Sertraline 25 MG Oral Tablet [Zoloft] 11/14/2019 12:00:00 AM EST eCW1 ([facility])
--- NOTE | 2020-12-06 21:25 | ROOPDOC ---
[facility] Report Of Operation Report of Operation DATE OF PROCEDURE: 12/06/20 DATE OF PROCEDURE: December 06, 2020 PREPROCEDURE DIAGNOSES: incomplete POSTPROCEDURE DIAGNOSES: Same. PROCEDURE: D+E+C SURGEON: Jesus Stout MD ANESTHESIA: Gen. via LMA. ESTIMATED BLOOD LOSS: Approximately 100 mL. COMPLICATIONS: None. FINDINGS: Large amount of POC's and blood clot in the lower uterine segment PROCEDURE NOTE: Patient taken to the operating room where LMA anesthesia was induced. She was prepped draped sterile fashion in dorsal lithotomy position. The bladder was emptied with a catheter. Speculum was placed in the vagina. The anterior lip of the cervix was grasped with tenaculum. Cervix dilated with tapered dilators. A # 9 mm suction curetted was placed through the internal os. The suction device was activated and curette gently rotated until products of conception were noted coming through the suction tubing. Sharp curettage was performed. Good hemostasis was noted. All instruments removed. Sponges counts were correct. JESUS STOUT MD Dec 06, 2020 21:25
[2020-12-06 22:30] VITALS: BP 125/59
== END | disposition home or self-care (01) ==
LOC: M ED 16:38 → M SDC 19:24
PROVIDERS: ATTEND Specialist
DX: O02.1 Missed abortion (principal)
CPT/HCPCS: 59820; 76801; 80048; 81000; 84702; 85025; 86850; 86900; 86901; 87086; 87798; 88305; 96361; 96374; 99284; J0131; J1100; J1885; J2250; J2270; J2405; J2765; J3010

== ENCOUNTER → 2020-12-24 | Outpatient (REF) | payer OTHER ==
[~2020-12-24] MED LIST changes: -ACETAMINOPHEN 1000MG 100ML IV BTL (OFIRMEV) (J0131 PER 10MG) As Ordered ONE; -ACETAMINOPHEN 500 MG TAB PO ONE; +BUPR150T12 PO; -BUPR150T4 PO; -DOXYCYCLINE HYCLATE 100MG TABLET PO ONE; -KETOROLAC 30 MG/ML 1ML VIAL IV PRN; -KETOROLAC 60MG 2ML VIAL As Ordered ONE; -LIDOCAINE 2% 100MG/5ML SDV (FOR ANES.) As Ordered ONE; -LR 1,000 ML IV SCH; -METOCLOPRAMIDE INJ 10MG/2ML VIAL (J2765 PER 1) As Ordered ONE; -MIDAZOLAM INJ 2MG/2ML VIAL (J2250 PER 1MG) As Ordered ONE; -MORPHINE 4 MG/ML 1ML VIAL/SYRINGE (J2270) IV ONE; -NS 1,000 ML IV ONE; -ONDANSETRON 4MG/2ML VIAL As Ordered ONE; -ONDANSETRON 4MG/2ML VIAL IV PRN; -dexameTHASONE 4 MG/ML 1ML VIAL (J1100 PER 1MG) As Ordered ONE; -fentaNYL 100 MCG/2 ML INJECTION (J3010) As Ordered ONE; -fentaNYL 100 MCG/2 ML INJECTION (J3010) IV PRN; -oxyCODONE 5MG TAB PO PRN; -propofoL 200 MG/20 ML VIAL As Ordered ONE
[2020-12-24 11:13] LABS: FREE T4 0.88 NG/DL (0.76-1.46); THYROID STIMULATING HORMONE 1.17 uIU/ML (0.358-3.740)
[2020-12-28 15:12] LABS: CARDIOLIPIN IGA ANTIBODY <9 APL U/mL (0-11); CARDIOLIPIN IGG ANTIBODY <9 GPL U/mL (0-14); CARDIOLIPIN IGM ANTIBODY 12 MPL U/mL (0-12)
== END ==
LOC: M PLALAB 08:05
PROVIDERS: ATTEND Advanced Practice Midwife
DX: N96 Recurrent pregnancy loss (principal)

== ENCOUNTER 2021-04-25 17:40 | Emergency (ER) | payer OTHER ==
[~2021-04-25] VITALS: Ht 170.2 cm; Wt 79.5 kg
[~2021-04-25 17:40] MED LIST changes: +DOCU-160; -STOO2CAP
[2021-04-25] MEDS ORDERED: PRED20TA (17:48)
[2021-04-25] MEDS ORDERED: CYCL-707 (17:48)
[2021-04-25] MEDS ORDERED: ACET-683 PO (17:48)
[2021-04-25] MEDS ORDERED: methocarbamoL 750 MG TAB PO ONE (19:20)
[2021-04-25] MEDS ORDERED: LIDOCAINE 5% (LIDODERM) PATCH TD ONE (19:20)
[2021-04-25] MEDS ORDERED: KETOROLAC 60MG 2ML VIAL IM ONE (19:20)
[2021-04-25] MEDS ORDERED: ANEC4CRE3 TOP (19:24)
[2021-04-25] MEDS ORDERED: NAPR500T6 PO (19:24)
[2021-04-25] MEDS ORDERED: METH-1165 PO (19:24)
[2021-04-25 19:45] VITALS: BP 118/65
[2021-04-25] MEDS ORDERED: **NOTE PATIENT COMMENT** MISC XX SCH (21:00)
== END 2021-04-25 19:49 | disposition home or self-care (01) ==
LOC: M ED 17:40
DX: M54.41 Lumbago with sciatica, right side (principal); Z79.899 Other long term (current) drug therapy
CPT/HCPCS: 96372; 99283; J1885

== ENCOUNTER → 2021-05-18 | Outpatient (CLI) | payer OTHER ==
[~2021-05-18] MED LIST changes: +ACET-683 PO; +ANEC4CRE3 TOP; +COLA100C5 PO; +CYCL-707; +FOLI400T13 PO; +IRON65TA2 PO; +LAMO100T3; +METH-1165 PO; +NAPR500T6 PO; +PRED20TA; +PROG1CAP9
== END ==
LOC: M PLALAB 08:03
PROVIDERS: ATTEND Advanced Practice Midwife
DX: Z34.80 Encounter for supervision of other normal pregnancy, unspecified trimester (principal)

== ENCOUNTER → 2021-05-20 | Outpatient (CLI) | payer OTHER ==
[~2021-05-20] MED LIST changes: -COLA100C5 PO; -FOLI400T13 PO; -IRON65TA2 PO; -LAMO100T3; -PROG1CAP9
== END ==
LOC: M PLALAB 07:48
PROVIDERS: ATTEND Advanced Practice Midwife
DX: Z34.90 Encounter for supervision of normal pregnancy, unspecified, unspecified trimester (principal); Z3A.00 Weeks of gestation of pregnancy not specified

== ENCOUNTER → 2021-05-26 | Outpatient (CLI) | payer OTHER | LOC: M PLALAB 08:15 | PROVIDERS: ATTEND Advanced Practice Midwife | DX: O26.21 Pregnancy care for patient with recurrent pregnancy loss, first trimester (principal) ==

== ENCOUNTER → 2021-05-28 | Outpatient (CLI) | payer OTHER | LOC: M PLALAB 08:09 | PROVIDERS: ATTEND Advanced Practice Midwife | DX: O26.21 Pregnancy care for patient with recurrent pregnancy loss, first trimester (principal) ==

== ENCOUNTER → 2021-06-01 | Outpatient (CLI) | payer OTHER ==
--- NOTE | 2021-06-01 09:55 | REP ---
INDICATION: HX RECURRENT MISCARRIAGES,DATING AND VIABILITY COMPARISON: None. TECHNIQUE: Transabdominal and transvaginal 1st trimester obstetrical ultrasound with color Doppler evaluation FINDINGS: Single live early intrauterine is appreciated. Gestational sac with yolk sac and pole identified. [place]-rump length of 4 mm corresponds to 6 weeks 1 day gestational age with estimated date of delivery 01/24/2022. heart rate equals 112 beats per minute. No gross abnormalities are identified. Maternal ovaries appear normal. Right ovary measures approximately 4.7 x 2.3 x 2.7 cm. Left ovary measures approximately 2.6 x 2.2 x 1.8 cm. IMPRESSION: Single live early intrauterine at 6 weeks 1 day gestational age. Complete anatomical assessment should be performed and 19-20 weeks. <Electronically signed by Britton Mansfield > 06/01/21 [id number]
== END ==
LOC: M WHC 08:37
PROVIDERS: ATTEND Advanced Practice Midwife
DX: O09.299 Supervision of pregnancy with other poor reproductive or obstetric history, unspecified trimester (principal); N96 Recurrent pregnancy loss; Z34.90 Encounter for supervision of normal pregnancy, unspecified, unspecified trimester

== ENCOUNTER 2021-06-12 18:29 | Emergency (ER) | payer OTHER ==
[~2021-06-12] VITALS: Ht 170.2 cm; Wt 80.9 kg
[2021-06-12] MEDS ORDERED: PROG1CAP9 (18:40)
[2021-06-12] MEDS ORDERED: LAMO100T3 (18:40)
[2021-06-12 19:30] LABS: HEMATOCRIT 34.5 % (36.0-47.0); HEMOGLOBIN 11.1 g/dl (12.0-15.5); MEAN CORPUSCULAR HGB CONC 32.2 g/dl (32.0-36.5); MEAN CORPUSCULAR VOLUME 90.1 fl (80.0-96.0); PLATELET COUNT, AUTOMATED 243 10^3/uL (150-450); RED BLOOD COUNT 3.83 10^6/uL (4.00-5.40); WHITE BLOOD COUNT 8.2 10^3/uL (4.0-10.0)
--- NOTE | 2021-06-12 19:45 | REP ---
INDICATION: 7 weeks preg, vag bleeding COMPARISON: 06/01/2021 TECHNIQUE: Transabdominal 1st trimester obstetrical ultrasound with color Doppler evaluation. FINDINGS: Single live early intrauterine is appreciated. Gestational sac with yolk sac and pole identified. [place]-rump length of 14 mm corresponds to 7 weeks 4 days gestational age with estimated date of delivery 01/25/2022. heart rate equals 172 beats per minute. A moderate to large anterior heterogeneous subchorionic hemorrhage represents a new finding and measures approximately 6.7 x 4.9 x 3.5 cm Maternal ovaries are normal in appearance and vascularity. Right ovary measures 3.2 x 4.5 x 3.2 cm. Left ovary measures 2.4 x 3.1 x 1.5 cm. IMPRESSION: Single live early intrauterine at 7 weeks 4 days gestational age. Complete anatomical assessment should be performed and 19-20 weeks. Moderate to large subchorionic hemorrhage. <Electronically signed by Britton Mansfield > 06/12/211940
[2021-06-12 20:56] VITALS: BP 124/75
== END 2021-06-12 21:26 | disposition home or self-care (01) ==
LOC: M ED 18:29
DX: O20.8 Other hemorrhage in early pregnancy (principal); Z3A.01 Less than 8 weeks gestation of pregnancy; Z79.899 Other long term (current) drug therapy

== ENCOUNTER → 2021-06-16 | Outpatient (CLI) | payer OTHER ==
[~2021-06-16] MED LIST changes: +LAMO100T3; +PROG1CAP9
== END ==
LOC: M WHC 13:55
PROVIDERS: ATTEND Advanced Practice Midwife
DX: O41.8X10 Other specified disorders of amniotic fluid and membranes, first trimester, not applicable or unspecified (principal); Z3A.00 Weeks of gestation of pregnancy not specified

== ENCOUNTER → 2021-06-16 | Outpatient (CLI) | payer OTHER ==
[2021-06-16 16:57] LABS: HEMATOCRIT 33.5 % (36.0-47.0); HEMOGLOBIN 10.6 g/dl (12.0-15.5); MEAN CORPUSCULAR HGB CONC 31.6 g/dl (32.0-36.5); MEAN CORPUSCULAR VOLUME 91.8 fl (80.0-96.0); PLATELET COUNT, AUTOMATED 238 10^3/uL (150-450); RED BLOOD COUNT 3.65 10^6/uL (4.00-5.40); WHITE BLOOD COUNT 6.4 10^3/uL (4.0-10.0)
[2021-06-16 17:58] LABS: HIV 1&2 SCREEN CENTAUR NEGATIVE (NEGATIVE)
[2021-06-16 19:10] LABS: GC DNA AMPLIFICATION NEGATIVE (NEGATIVE)
== END ==
LOC: M PLALAB 13:38
PROVIDERS: ATTEND Advanced Practice Midwife
DX: O34.211 Maternal care for low transverse scar from previous cesarean delivery (principal); Z3A.00 Weeks of gestation of pregnancy not specified

== ENCOUNTER → 2021-06-28 | Outpatient (CLI) | payer OTHER ==
--- NOTE | 2021-06-28 11:27 | REP ---
INDICATION: SUBCHORIONIC HEMATOMA COMPARISON: 06/12/2021 TECHNIQUE: Transabdominal 1st trimester obstetrical ultrasound with color Doppler evaluation. FINDINGS: Single live early intrauterine is again appreciated. Gestational sac with yolk sac and pole identified. [place]-rump length of 34 mm corresponds to 10 weeks 2 days gestational age with estimated date of delivery 01/22/2022. heart rate equals 170 beats per minute. Cervix is closed and measures 3.2 cm in length. Subchorionic hemorrhage again noted now suggesting two separate components measuring 7.0 x 2.1 x 8.9 cm and 3.1 x 2.3 x 0.7 cm. IMPRESSION: Single live early intrauterine at 10 weeks 2 days gestational age. Subchorionic hemorrhages as measured above. <Electronically signed by Britton Mansfield > 06/28/21 1127
== END ==
LOC: M WHC 10:34
PROVIDERS: ATTEND Advanced Practice Midwife
DX: O41.8X10 Other specified disorders of amniotic fluid and membranes, first trimester, not applicable or unspecified (principal)

== ENCOUNTER → 2021-06-29 | Outpatient (CLI) | payer OTHER | LOC: M PLALAB 08:17 | PROVIDERS: ATTEND Advanced Practice Midwife | DX: Z34.91 Encounter for supervision of normal pregnancy, unspecified, first trimester (principal); Z3A.00 Weeks of gestation of pregnancy not specified ==

== ENCOUNTER → 2021-07-13 | Outpatient (CLI) | payer OTHER ==
--- NOTE | 2021-07-13 10:27 | REP ---
INDICATION: MONITOR SUBCHORNIC HEMATOMA. COMPARISON: Comparison sonography June 28, 2021 and June 12, 2021. TECHNIQUE: Transabdominal obstetric sonography. FINDINGS: The previously noted subchorionic hematoma has decreased in size today measuring 4.3 x 0.8 x 5.0 cm. Closed cervical length is 4.0 cm. [place]-rump length of the embryonic pole is 6.5 cm corresponding with a 12 week 6 day gestational age estimate. Variable lie. heart rate is recorded at 163 beats per minute. A posterior grade 0 placenta is seen without evidence of previa. IMPRESSION: Viable single intrauterine gestation at 12 weeks 6 days by today's composite sonographic criteria. ERNESTO by today's sonography January 19, 2022. The previously noted subchorionic hematoma appears to have decreased in size. <Electronically signed by Usama Kowalski > 07/13/21 1026
== END ==
LOC: M WHC 08:45
PROVIDERS: ATTEND Advanced Practice Midwife
DX: O41.8X10 Other specified disorders of amniotic fluid and membranes, first trimester, not applicable or unspecified (principal); Z3A.12 12 weeks gestation of pregnancy

== ENCOUNTER → 2021-07-27 | Outpatient (CLI) | payer OTHER ==
--- NOTE | 2021-07-27 09:42 | REP ---
INDICATION: SUBCHRONIC HEMATOMA COMPARISON: 07/13/2021 TECHNIQUE: Transabdominal obstetrical ultrasound with color Doppler evaluation. FINDINGS: Examination demonstrates a single live intrauterine in variable presentation. motion is identified by technologist. Placenta is noted posterior and grade 0 without evidence for placenta previa or abruption. Amniotic fluid volume is normal. Cervix measures 4.5 cm in length and appears closed. There is no evidence for subchorionic hemorrhage.. [place]-rump length of 8.6 cm corresponds to 14 weeks 3 days gestational age with estimated date of delivery 01/22/2022. heart rate equals 160 beats per minute. IMPRESSION: Single live early intrauterine in variable presentation. No subchorionic hemorrhage identified. <Electronically signed by Britton Mansfield > 07/27/21 [id number]
== END ==
LOC: M WHC 09:12
PROVIDERS: ATTEND Advanced Practice Midwife
DX: O41.8X10 Other specified disorders of amniotic fluid and membranes, first trimester, not applicable or unspecified (principal)

== ENCOUNTER → 2021-08-31 | Outpatient (CLI) | payer OTHER ==
--- NOTE | 2021-08-31 12:48 | REP ---
INDICATION: ANATOMY COMPARISON: 07/27/2021 TECHNIQUE: Transabdominal obstetrical ultrasound with color Doppler evaluation. FINDINGS: Examination demonstrates a single live intrauterine in variable presentation. motion is identified by technologist. Placenta is noted posterior and grade 0 without evidence for placenta previa or abruption. Amniotic fluid volume is normal. Cervix measures 4.3 cm in length and appears closed.. Selected gestational age: 19 weeks 1 day with ERNESTO 01/24/2022. Gestational age by current measurements 20 weeks 0 days with ERNESTO 01/18/2022. FHR equals 149 beats per minute. Estimated weight 320 grams (86thpercentile). Anatomical assessment demonstrates normal structures including cranium, choroid plexus, cavum, cerebellum/posterior fossa, lungs, four-chamber heart/ventricular outflow tracts, diaphragm, stomach, cord insertion/three-vessel cord, kidneys/bladder, spine, and extremities. Limited evaluation of the facial profile and nose/lips due to positioning. IMPRESSION: Single live intrauterine in variable presentation demonstrating appropriate estimated weight and growth. Anatomical limitations as noted above may warrant follow-up. Remainder of the anatomical assessment is complete and normal. <Electronically signed by Britton Mansfield > 08/31/21 [id number]
== END ==
LOC: M WHC 08:33
PROVIDERS: ATTEND Specialist
DX: Z34.82 Encounter for supervision of other normal pregnancy, second trimester (principal); Z3A.19 19 weeks gestation of pregnancy

== ENCOUNTER → 2021-10-05 | Outpatient (CLI) | payer OTHER ==
--- NOTE | 2021-10-05 09:39 | REP ---
INDICATION: F/U ANATOMY COMPARISON: 08/31/2021 TECHNIQUE: Transabdominal obstetrical ultrasound with color Doppler evaluation. FINDINGS: Examination demonstrates a single live intrauterine in cephalic presentation. motion is identified by technologist. Placenta is noted posterior and grade 1 without evidence for placenta previa or abruption. Amniotic fluid volume is normal. Cervix measures 4.2 cm in length and appears closed.. Selected gestational age: 24 weeks 1 day with ERNESTO 01/24/2022. Gestational age by current measurements 25 weeks 1 day with ERNESTO 01/17/2022. FHR equals 143 beats per minute. Estimated weight 763 grams (81stpercentile). Anatomical assessment demonstrates normal structures including cranium, choroid plexus, cavum, cerebellum/posterior fossa, and facial features . IMPRESSION: Single live intrauterine in cephalic presentation demonstrating appropriate interval growth. In conjunction with prior examination anatomical assessment is complete and normal. <Electronically signed by Britton Mansfield > 10/05/21 0910
== END ==
LOC: M WHC 08:41
PROVIDERS: ATTEND Specialist
DX: Z34.82 Encounter for supervision of other normal pregnancy, second trimester (principal); Z3A.25 25 weeks gestation of pregnancy

== ENCOUNTER → 2021-11-02 | Outpatient (CLI) | payer OTHER ==
[2021-11-02 13:23] LABS: HEMATOCRIT 32.4 % (36.0-47.0); HEMOGLOBIN 10.6 g/dl (12.0-15.5); MEAN CORPUSCULAR HEMOGLOBIN 33.1 pg (27.0-33.0); MEAN CORPUSCULAR HGB CONC 32.7 g/dl (32.0-36.5); MEAN CORPUSCULAR VOLUME 101.3 fl (80.0-96.0); PLATELET COUNT, AUTOMATED 217 10^3/uL (150-450); WHITE BLOOD COUNT 9.6 10^3/uL (4.0-10.0)
[2021-11-02 14:55] LABS: GC DNA AMPLIFICATION NEGATIVE (NEGATIVE)
== END ==
LOC: M PLALAB 09:20
PROVIDERS: ATTEND Specialist
DX: Z34.82 Encounter for supervision of other normal pregnancy, second trimester (principal); Z3A.00 Weeks of gestation of pregnancy not specified

== ENCOUNTER 2021-11-05 07:12 | Outpatient (CLI) | payer OTHER ==
[~2021-11-05] VITALS: Ht 170.2 cm; Wt 97.7 kg
[2021-11-05 07:20] VITALS: BP 138/72
[2021-11-05] MEDS ORDERED: IRON SUCROSE 500 MG in NS 250 ML OVER 4 HRS IV ONE (07:30)
[2021-11-05] MEDS ORDERED: IRON65TA2 PO (07:31)
[2021-11-05] MEDS ORDERED: FOLI400T13 PO (07:32)
[2021-11-05] MEDS ORDERED: COLA100C5 PO (07:32)
[2021-11-05] MEDS ORDERED: ACETAMINOPHEN 500 MG TAB PO ONE (09:10)
[2021-11-05] MEDS ORDERED: FIORICET TAB PO ONE (09:10)
[2021-11-05 11:00] VITALS: BP 108/58
[2021-11-05 11:45] VITALS: BP 123/63
[2021-11-05 13:00] VITALS: BP 124/63
== END 2021-11-05 13:00 | disposition home or self-care (01) ==
LOC: M INFU 07:12
PROVIDERS: ATTEND Advanced Practice Midwife
DX: D64.9 Anemia, unspecified (principal)
CPT/HCPCS: 96365; 96366; J1756

== ENCOUNTER → 2021-11-30 | Outpatient (CLI) | payer OTHER ==
[~2021-11-30] MED LIST changes: +COLA100C5 PO; +FOLI400T13 PO; +IRON65TA2 PO
[2021-11-30 13:43] LABS: HEMATOCRIT 34.4 % (36.0-47.0); HEMOGLOBIN 11.2 g/dl (12.0-15.5); MEAN CORPUSCULAR HEMOGLOBIN 33.2 pg (27.0-33.0); MEAN CORPUSCULAR HGB CONC 32.6 g/dl (32.0-36.5); MEAN CORPUSCULAR VOLUME 102.1 fl (80.0-96.0); PLATELET COUNT, AUTOMATED 222 10^3/uL (150-450); RED BLOOD COUNT 3.37 10^6/uL (4.00-5.40); WHITE BLOOD COUNT 10.2 10^3/uL (4.0-10.0)
== END ==
LOC: M PLALAB 09:20
PROVIDERS: ATTEND Specialist
DX: O99.013 Anemia complicating pregnancy, third trimester (principal)

== ENCOUNTER → 2022-01-04 | Outpatient (REF) | payer OTHER | LOC: M SFHCWAGY 17:14 | PROVIDERS: ATTEND Specialist | DX: Z36.85 Encounter for antenatal screening for Streptococcus B (principal) ==

== ENCOUNTER → 2022-01-12 | Outpatient (CLI) | payer OTHER | LOC: M LABSMTC 09:13 | PROVIDERS: ATTEND Anesthesiology | DX: Z11.52 Encounter for screening for COVID-19 (principal); Z20.822 Contact with and (suspected) exposure to COVID-19 ==

== ENCOUNTER → 2023-05-09 | Outpatient (CLI) | payer OTHER ==
[2023-05-09 10:36] LABS: HEMATOCRIT 35.4 % (36.0-47.0); HEMOGLOBIN 11.5 g/dl (12.0-15.5); MEAN CORPUSCULAR HEMOGLOBIN 32.2 pg (27.0-33.0); MEAN CORPUSCULAR HGB CONC 32.5 g/dl (32.0-36.5); MEAN CORPUSCULAR VOLUME 99.2 fl (80.0-96.0); PLATELET COUNT, AUTOMATED 235 10^3/uL (150-450); RED BLOOD COUNT 3.57 10^6/uL (4.00-5.40); WHITE BLOOD COUNT 6.2 10^3/uL (4.0-10.0)
[2023-05-09 11:30] LABS: HIV 1&2 SCREEN NEGATIVE (NEGATIVE)
[2023-05-09 11:38] LABS: HEPATITIS C VIRUS ABY INDEX 0.14 INDEX (<0.8)
[2023-05-09 12:05] LABS: GC DNA AMPLIFICATION NEGATIVE (NEGATIVE)
== END ==
LOC: M PLALAB 07:03
PROVIDERS: ATTEND Specialist
DX: Z34.81 Encounter for supervision of other normal pregnancy, first trimester (principal)

== ENCOUNTER → 2023-07-04 | Outpatient (CLI) | payer OTHER | LOC: M WHC 09:26 | PROVIDERS: ATTEND Advanced Practice Midwife | DX: Z34.92 Encounter for supervision of normal pregnancy, unspecified, second trimester (principal); Z3A.19 19 weeks gestation of pregnancy ==

== ENCOUNTER → 2023-08-15 | Outpatient (CLI) | payer OTHER | LOC: M WHC 08:21 | PROVIDERS: ATTEND Obstetrics & Gynecology | DX: Z36.2 Encounter for other antenatal screening follow-up (principal) ==

== ENCOUNTER → 2023-08-24 | Outpatient (CLI) | payer OTHER ==
[2023-08-24 15:58] LABS: HEMATOCRIT 33.5 % (36.0-47.0); HEMOGLOBIN 11.2 g/dl (12.0-15.5); MEAN CORPUSCULAR HEMOGLOBIN 33.5 pg (27.0-33.0); MEAN CORPUSCULAR HGB CONC 33.4 g/dl (32.0-36.5); MEAN CORPUSCULAR VOLUME 100.3 fl (80.0-96.0); PLATELET COUNT, AUTOMATED 245 10^3/uL (150-450); RED BLOOD COUNT 3.34 10^6/uL (4.00-5.40); WHITE BLOOD COUNT 9.4 10^3/uL (4.0-10.0)
[2023-08-24 17:34] LABS: CHLAMYDIA DNA AMPLIFICATION NEGATIVE (NEGATIVE); GC DNA AMPLIFICATION NEGATIVE (NEGATIVE)
== END ==
LOC: M PLALAB 13:00
PROVIDERS: ATTEND Obstetrics & Gynecology
DX: Z34.92 Encounter for supervision of normal pregnancy, unspecified, second trimester (principal)

== ENCOUNTER → 2023-09-28 | Outpatient (CLI) | payer OTHER ==
[2023-09-28 14:21] LABS: FREE T4 0.93 NG/DL (0.89-1.76)
[2023-09-28 14:22] LABS: FERRITIN 13.1 NG/ML (7.3-270.7); THYROID STIMULATING HORMONE 0.886 uIU/ML (0.55-4.78)
== END ==
LOC: M PLALAB 11:06
PROVIDERS: ATTEND Advanced Practice Midwife
DX: O26.00 Excessive weight gain in pregnancy, unspecified trimester (principal); O34.211 Maternal care for low transverse scar from previous cesarean delivery

== ENCOUNTER → 2023-10-31 | Outpatient (REF) | payer OTHER | LOC: M SFHCWAGY 09:42 | PROVIDERS: ATTEND Specialist | DX: Z36.85 Encounter for antenatal screening for Streptococcus B (principal) ==

== ENCOUNTER 2023-11-20 05:29 | Inpatient (IN) | payer OTHER ==
[2023-11-20] VITALS (9 sets, daily range): BP systolic 110–135; BP diastolic 56–69; TEMP 96.8; O2SAT 97–99
[~2023-11-20] VITALS: Ht 170.2 cm; Wt 110.8 kg
[2023-11-20] MEDS ORDERED: HOME MED LIST COMPLETE! XX SCH (06:05)
[2023-11-20 06:17] LABS: HEMATOCRIT 35.2 % (36.0-47.0); HEMOGLOBIN 11.9 g/dl (12.0-15.5); MEAN CORPUSCULAR HEMOGLOBIN 33.1 pg (27.0-33.0); MEAN CORPUSCULAR HGB CONC 33.8 g/dl (32.0-36.5); MEAN CORPUSCULAR VOLUME 98.1 fl (80.0-96.0); PLATELET COUNT, AUTOMATED 250 10^3/uL (150-450); RED BLOOD COUNT 3.59 10^6/uL (4.00-5.40); WHITE BLOOD COUNT 8.4 10^3/uL (4.0-10.0)
[2023-11-20] MEDS: LACTATED RINGER'S 1000 ML IV STA (07:05)
[2023-11-20] MEDS: LR 1,000 ML IV SCH ×2 (07:06→13:29)
[2023-11-20] MEDS: ceFAZolin SOD 2 GM in IV 1 EA IV ONE (07:16)
[2023-11-20] MEDS: BICITRA 30ML SOLN UDC PO ONE (07:16)
[2023-11-20] MEDS ORDERED: MORPHINE PRES-FREE INJ 10 MG/10 ML VIAL As Ordered ONE (08:03)
[2023-11-20] MEDS ORDERED: ONDANSETRON 4MG 2ML VIAL As Ordered ONE (08:04)
[2023-11-20] MEDS ORDERED: ACETAMINOPHEN 1000MG 100ML IV BAG As Ordered ONE (08:18)
[2023-11-20] MEDS ORDERED: OXYTOCIN 30UNITS IN 0.9% NaCl 500ML IV BAG As Ordered ONE (08:18)
[2023-11-20 08:41] LABS: CORD GAS ABE A -2.8; CORD GAS HCO3 A 25.3 MMOL/L; CORD GAS O2 SAT A 26.8 %; CORD GAS PCO2 A 57.5 mmHg; CORD GAS PH A 7.261 UNITS; CORD GAS PO2 A 14.4 mmHg; CORD GAS SBC A 20.6 MMOL/L
[2023-11-20 08:43] LABS: CORD GAS ABE V -3.5; CORD GAS O2 SAT V 65.3 %; CORD GAS PCO2 V 47.1 mmHg; CORD GAS PH V 7.307 UNITS; CORD GAS PO2 V 28.5 mmHg; CORD GAS SBC V 20.8 MMOL/L; CORD GAS TCO2 V 24.5 MMOL/L
[2023-11-20] MEDS ORDERED: PHENYLephrine 500MCG 5ML (100MCG/ML) SYRINGE As Ordered ONE (08:46)
[2023-11-20] MEDS ORDERED: KETOROLAC 60MG 2ML VIAL As Ordered ONE (08:46)
[2023-11-20] MEDS ORDERED: RHOGAM 300MCG (1500IU) INJ IM SCH (09:05)
[2023-11-20] MEDS ORDERED: COLA100C5 PO (09:06)
[2023-11-20] MEDS ORDERED: ONDANSETRON 4MG 2ML VIAL IV PRN (09:35)
[2023-11-20] MEDS ORDERED: METOCLOPRAMIDE INJ 10MG/2ML VIAL IV PRN (09:35)
[2023-11-20] MEDS ORDERED: fentaNYL 100 MCG/2 ML INJECTION IV PRN (09:35)
[2023-11-20] MEDS ORDERED: NALOXONE INJ 0.4MG/1ML VIAL IV PRN ×2 (09:35)
[2023-11-20] MEDS ORDERED: oxyCODONE 5MG TAB PO PRN (09:35)
[2023-11-20] MEDS ORDERED: MEPERIDINE 25 MG/ML 1ML VIAL IV PRN (09:35)
[2023-11-20] MEDS: SLF 3 ML SYR IV SCH (09:35)
[2023-11-20] MEDS: OXYTOCIN DRIP 30 UNITS in IV 1 EA IV SCH (09:35)
[2023-11-20] MEDS ORDERED: HYDROMORPHONE HCL 0.5 MG/ 0.5 ML SYRINGE IV PRN (09:35)
[2023-11-20] MEDS ORDERED: **NOTE PATIENT COMMENT** MISC XX SCH (09:35)
[2023-11-20] MEDS: PERCOCET 5MG/325MG TAB PO PRN ×2 (12:48→19:17)
[2023-11-20] MEDS: KETOROLAC 30 MG/ML 1ML VIAL IV SCH (15:22)
[2023-11-20] MEDS: SIMETHICONE 80MG CHEW TAB PO PRN (19:17)
[2023-11-20] MEDS: diphenhydrAMINE 50MG/ML VIAL IV PRN (19:17)
[2023-11-21 02:00] VITALS: BP 121/58; O2SAT 97
[2023-11-21 06:00] VITALS: BP 114/55; O2SAT 98
[2023-11-21 06:52] LABS: HEMATOCRIT 31.6 % (36.0-47.0); HEMOGLOBIN 10.3 g/dl (12.0-15.5); MEAN CORPUSCULAR HGB CONC 32.6 g/dl (32.0-36.5); MEAN CORPUSCULAR VOLUME 101.3 fl (80.0-96.0); PLATELET COUNT, AUTOMATED 202 10^3/uL (150-450); RED BLOOD COUNT 3.12 10^6/uL (4.00-5.40); WHITE BLOOD COUNT 8.8 10^3/uL (4.0-10.0)
[2023-11-21 10:00] VITALS: BP 128/58; O2SAT 99
[2023-11-21] MEDS: PRENATAL VITAMINS CHEWABLE TABLET PO SCH (10:56)
[2023-11-21] MEDS: IBUPROFEN 800 MG TAB PO SCH (10:56)
[2023-11-21 14:00] VITALS: BP 115/62; O2SAT 97
[2023-11-21 18:00] VITALS: BP 132/60; O2SAT 99
[2023-11-21] MEDS: MORPHINE 2 MG/ML 1ML VIAL IV ONE (22:06)
[2023-11-21] MEDS: ACETAMINOPHEN 500 MG TAB PO SCH (22:23)
[2023-11-21] MEDS: oxyCODONE 5MG TAB PO PRN (23:18)
[2023-11-22] MEDS: IBUPROFEN 600MG TAB PO SCH (01:16)
[2023-11-22 01:20] VITALS: BP 118/63
[2023-11-22] MEDS: oxyCODONE 5MG TAB PO PRN (05:14)
[2023-11-22 06:00] VITALS: BP 118/61
[2023-11-22] MEDS: MEASLES,MUMPS,RUBELLA VACCINE INJ (MMR-II) SC.IMMUN ONE (08:20)
[2023-11-22 18:00] VITALS: BP 136/76; O2SAT 99
[2023-11-23 05:59] VITALS: BP 143/79; O2SAT 100
== END 2023-11-23 15:40 | disposition home or self-care (01) | DRG 540 ==
LOC: M LDI 05:29 → M OBS 10:40
PROVIDERS: ADMIT Specialist; ATTEND Specialist
PROC: 10D00Z1 Extraction of Products of Conception, Low, Open Approach (ICD-10-PCS; principal; 2023-11-20 07:30)
DX: O34.211 Maternal care for low transverse scar from previous cesarean delivery (principal); Z3A.39 39 weeks gestation of pregnancy; Z37.0 Single live birth

== ENCOUNTER → 2023-12-04 | Outpatient (REF) | payer OTHER | LOC: M SFHCWAGY 12:57 | PROVIDERS: ATTEND Obstetrics & Gynecology | DX: R35.0 Frequency of micturition (principal) ==

== ENCOUNTER → 2024-04-02 | Outpatient (CLI) | payer OTHER ==
[2024-04-02 13:56] LABS: BASO % 0.5 % (0.0-1.0); HEMATOCRIT 37.5 % (36.0-47.0); LYMPH # 1.3 10^3/uL (1.5-5.0); LYMPH % 30.6 % (24.0-44.0); MEAN CORPUSCULAR HEMOGLOBIN 33.2 pg (27.0-33.0); MEAN CORPUSCULAR HGB CONC 34.7 g/dl (32.0-36.5); MEAN CORPUSCULAR VOLUME 95.9 fl (80.0-96.0); MONO # 0.3 10^3/uL (0.0-0.8); MONO % 7.8 % (2.0-8.0); NEUTROPHILS # 2.5 10^3/uL (1.5-8.5); NEUTROPHILS % 60.1 % (36.0-66.0); PLATELET COUNT, AUTOMATED 240 10^3/uL (150-450); RED BLOOD COUNT 3.91 10^6/uL (4.00-5.40); WHITE BLOOD COUNT 4.1 10^3/uL (4.0-10.0)
[2024-04-02 13:58] LABS: CHOLESTEROL RISK RATIO 3.41 (<5); HDL CHOLESTEROL 40.1 MG/DL (>40); LDL CHOLESTEROL 85.1 MG/DL (<100); NON-HDL-C 96.9 MG/DL
[2024-04-02 14:15] LABS: HEMOGLOBIN A1c 4.7 % (4.0-6.0)
== END ==
LOC: M PLALAB 08:17
PROVIDERS: ATTEND Registered Nurse
DX: F31.32 Bipolar disorder, current episode depressed, moderate (principal)

== ENCOUNTER 2024-10-11 08:04 | Emergency (ER) | payer OTHER ==
[~2024-10-11] VITALS: Ht 170.2 cm; Wt 73.2 kg
[~2024-10-11 08:04] MED LIST changes: +NAPR-1405 PO; -NAPR500T6 PO
[2024-10-11] MEDS ORDERED: LAMO100T3 PO (08:13)
[2024-10-11] MEDS ORDERED: LURA40TA2 PO (08:13)
[2024-10-11] MEDS ORDERED: METH36TA5 PO (08:13)
[2024-10-11] MEDS: NS (Normal Saline) 0.9% 1,000 ML IV ONE (09:47)
[2024-10-11] MEDS: ONDANSETRON 4MG 2ML VIAL IV ONE (09:47)
[2024-10-11] MEDS: ACETAMINOPHEN 500 MG TAB PO ONE (09:48)
[2024-10-11] MEDS: KETOROLAC 30 MG/ML 1ML VIAL IV ONE (09:52)
[2024-10-11] MEDS ORDERED: HOME MED LIST COMPLETE! XX SCH (11:20)
[2024-10-11] MEDS: diphenhydrAMINE 50MG/ML VIAL IV STA (11:33)
[2024-10-11 13:09] VITALS: BP 97/53; TEMP 97.7; O2SAT 97
== END 2024-10-11 13:17 | disposition home or self-care (01) ==
LOC: M ED 08:04
DX: J09.X2 Influenza due to identified novel influenza A virus with other respiratory manifestations (principal); G43.909 Migraine, unspecified, not intractable, without status migrainosus; F41.9 Anxiety disorder, unspecified; F32.A Depression, unspecified
CPT/HCPCS: 87486; 87581; 87633; 87798; 96361; 96374; 96375; 99284; J1100; J1200; J1885; J2405

== ENCOUNTER 2025-09-12 12:27 | Emergency (ER) | payer OTHER ==
[~2025-09-12] VITALS: Ht 170.2 cm; Wt 65.9 kg
[~2025-09-12 12:27] MED LIST changes: -DOCU-160; +LAMO100T3 PO; +LURA40TA2 PO; +METH36TA13 PO; +STOO100C19
[2025-09-12 13:04] LABS: BASO # 0.0 10^3/uL (0.0-0.2); BASO % 0.3 % (0.0-1.0); EOS # 0.0 10^3/uL (0.0-0.5); EOS % 0.0 % (0.0-3.0); LYMPH # 0.3 10^3/uL (1.5-5.0); LYMPH % 2.4 % (24.0-44.0); MONO # 0.3 10^3/uL (0.0-0.8); MONO % 3.0 % (2.0-8.0); NEUTROPHILS # 9.8 10^3/uL (1.5-8.5); NEUTROPHILS % 94.1 % (36.0-66.0); PLATELET COUNT, AUTOMATED 201 10^3/uL (150-450)
[2025-09-12] MEDS: NS (Normal Saline) 0.9% 1,000 ML IV ONE (13:21)
[2025-09-12 13:27] LABS: CALCIUM LEVEL 8.4 MG/DL (8.5-10.1); CARBON DIOXIDE LEVEL 29 MMOL/L (20-31); CHLORIDE LEVEL 106 MMOL/L (98-107); CREATININE FOR GFR 0.92 MG/DL (0.55-1.30); GLOMERULAR FILTRATION RATE 83.8 (>60); POTASSIUM SERUM 3.9 MMOL/L (3.5-5.1); SODIUM LEVEL 146 MMOL/L (136-145)
[2025-09-12 13:34] LABS: HCG, SERUM QUALITATIVE NEGATIVE (NEGATIVE)
[2025-09-12] MEDS: KETOROLAC 30 MG/ML 1 ML VIAL IV ONE (13:59)
[2025-09-12] MEDS: PROCHLORPERAZINE 10MG/2ML VIAL IV ONE (13:59)
[2025-09-12] MEDS: diphenhydrAMINE 50 MG/ML VIAL IV ONE (13:59)
[2025-09-12] MEDS ORDERED: ISOVUE-370 76% 100 ML VIAL As Ordered ONE (14:00)
[2025-09-12] MEDS: ACETAMINOPHEN 500 MG TAB PO ONE (14:26)
[2025-09-12 15:24] LABS: KETONE, URINE AUTO RFX TRACE mg/dL (NEGATIVE); LEUKOCYTE ESTERASE UR AUTO RFX NEGATIVE (NEGATIVE); NITRITE, URINE AUTO RFX NEGATIVE (NEGATIVE); RBC, URINE AUTO RFX 0 /HPF (0-3); SQUAM EPITHELIAL CELL UR AURFX 4 /HPF (0-6); WBC, URINE AUTO RFX 0 /HPF (0-3)
[2025-09-12 15:25] LABS: URINE PREG TEST NEGATIVE (NEGATIVE)
[2025-09-12 17:45] VITALS: BP 101/58
[2025-09-12 17:46] VITALS: TEMP 99.3; O2SAT 98
== END 2025-09-12 18:01 | disposition home or self-care (01) ==
LOC: M ED 12:27
DX: G43.909 Migraine, unspecified, not intractable, without status migrainosus (principal); M51.370 Other intervertebral disc degeneration, lumbosacral region with discogenic back pain only; Z79.899 Other long term (current) drug therapy
CPT/HCPCS: 74177; 80048; 81001; 84703; 85025; 87486; 87581; 87633; 87798; 96360; 96361; 99285; Q9967

== ENCOUNTER → 2025-10-07 | Outpatient (CLI) | payer OTHER ==
[2025-10-07 14:16] LABS: ESTIMATED AVERAGE GLUCOSE 91.0 MG/DL (60-110)
[2025-10-07 14:17] LABS: FREE T4 1.06 NG/DL (0.89-1.76); PROLACTIN 17.07 NG/ML
[2025-10-07 14:19] LABS: LUTEINIZING HORMONE 7.2 mIU/ML
[2025-10-13 15:17] LABS: TESTOSTERONE FREE (DIRECT) 1.7 pg/mL (0.1-6.4); TESTOSTERONE TOTAL FOR T&D 15.0 ng/dL (2-45)
[2025-10-13 21:32] LABS: 17 HYDROXY PROGESTERONE 151.0 ng/dL; DEHYDROEPIANDROSTERONE SULFATE 65.0 mcg/dL (19-237)
== END ==
LOC: M PLALAB 07:24
PROVIDERS: ATTEND Advanced Practice Midwife
DX: N92.6 Irregular menstruation, unspecified (principal); L68.0 Hirsutism